=== PATIENT | female | born 1960 | race Caucasian/White ===

== ENCOUNTER 2019-03-27 01:09 | Emergency (ER) | payer MEDICAID, SELFPAY ==
[2019-03-27] VITALS (8 sets, daily range): BP systolic 142–187; BP diastolic 100–129; PULSE 75–98; RESP 14–24; O2SAT 94–98; BMI 28.1
--- NOTE | 2019-03-27 01:11 | XR_ITS ---
WS: [id number] Left hand, 3 views, 03/27/2019 Clinical Data: injury Comparison: None. Findings: There is a small calcification at the dorsal base of the left second distal phalanx which could repre sent a small fracture. No other areas of fracture are seen. The joint spaces are otherwise normal. Th e soft tissues are unremarkable. XR/XR hand LT min 3V* [id number] Impression: 1. Small calcification at the dorsal base of the distal phalanx of the second f colleen which could represent a small fracture. 2. The remainder of the left hand is unremarkable.
--- NOTE | 2019-03-27 01:17 | W.ED.EXTPRO ---
HPI - Extremity Problem General: Chief complaint: Extremity Injury, Upper Stated complaint: INJURY TO LEFT THUMB Time Seen by Provider: 03/27/19 01:17 History of Present Illness: HPI Narrative: Patient is a 58-year-old female comes to the ED with right hand pain. She states that just before arrival she got her right hand got injured when she closed the trunk of her car on her right hand by accident. She says most of her pain is in the thumb area. She has multiple superficial lacerations and abrasions. Patient states tetanus was given within the last 5 years. She has full range of motion and pain free when she moves her fingers and wrist. She is able to move her thumb but it does cause pain. Denies any chest pain, shortness of breath, head injury, abdominal pain, nausea, vomiting, dysuria, hematuria, diarrhea, constipation, blood in the stool, numbness or tingling, weakness to extremities. Patient is also feels like she is developing a migraine. She says she's had a headache for the past 2 days and is to use Tylenol and Aleve to treat it and it has not gotten any better and now it's development into her migraines. She has a history of migraines and states that this headache starting his chest like her past migraines. She has photophobia with nausea. Denies any other neurological symptoms. Review of Systems General: Reports: 10 or more systems reviewed and unremarkable except in HPI and below PFSH ED PFSH: Statuses (acute, chronic, etc) shown below reflect problem list status as previously entered and may not be historically accurate Social History Smoking and tobacco status: current every day smoker Physical Exam Const: COMMON NORMALS: oriented x3 HENMT: COMMON NORMALS: normocephalic HEAD & SCALP: normocephalic MOUTH: oral and palatal mucosa normal THROAT: posterior oropharynx normal and uvula midline Neck/C-Spine: COMMON NORMALS: supple GENERAL: Yes normal visual inspection Resp: COMMON NORMALS: normal respiratory effort, no retractions, no use of accessory muscles and clear to auscultation bilaterally AUSCULTATION: clear to auscultation bilaterally Cardio: COMMON NORMALS: regular rate, regular rhythm, S1 normal heart sound, S2 normal heart sound, no gallops, no clicks, no murmurs and peripheral pulses 2+ throughout RATE: regular rate RHYTHM: regular rhythm HEART SOUNDS: S1 normal and S2 normal PERIPHERAL PULSES: pulses 2+ throughout GI: COMMON NORMALS: normal to inspection, nondistended, normoactive bowel sounds, soft to palpation, non-tender and no masses PALPATION: Yes soft : COMMON NORMALS: Yes no CVA tenderness BLADDER/KIDNEY EXAM: Yes no CVA tenderness Back/Pelvis: COMMON NORMALS: no CVA tenderness Extremity: LEFT UPPER EXTREMITY: Yes hand & digits (2.5 cm superficial lac and multiple abrasions.-mild swelling on thumb) Left hand and digits: Yes inspection (superficial laceration 2.5cm in webbing between 1st and 2nd digit.), Yes palpation (mild tenderness over thumb), Yes ROM (normal), Yes neurovascular exam (intact) and Yes tendon exam (intact) Neuro: COMMON NORMALS: oriented x3 and moves all extremities Procedures Laceration Laceration 1: Site: hand (2.5 cm laceration on webbing between thumb and index finger. superficial) Side (If applicable): left Size (cm): 2.5 Description: linear Depth: simple, single layer Pre-repair: irrigated extensively Size (cm): other (Laceration was irrigated with NS, cleaned with CHG, then dermabond was used to close it.) Course ED course: Laceration was irrigated with NS, cleaned with CHG, then dermabond was used to close it. 2 small abrasions on thumb were irrigated with NS and cleaned with CHG. Patient also complained of developing a migraine over the last couple days. I treated her migraine with sumatriptan, Reglan, Decadron and Benadryl. Vital Signs: Vital signs: Vital Signs Pulse Rate 76 03/27/19 03:15 Respiratory Rate 18 03/27/19 03:15 Blood Pressure 142/100 03/27/19 03:15 Pulse Oximetry 98 03/27/19 03:15 MDM - Extremity (Nontraumatic) Imaging Data^: Xray Ortho: Attestation: I personally reviewed and interpreted this imaging study as follows: My impression: No acute fractures seen on left hand x-ray. Radiologist's impression: Pending radiology final report. Discharge Plan Discharge Patient Disposition: Home, Self-Care Clinical Impression: Contusion, thumb Qualifiers: Encounter type: initial encounter Damage to nail status: without damage Laterality: left Qualified Code(s): S60.012A - Contusion of left thumb without damage to nail, initial encounter Abrasion of hand, left Qualifiers: Encounter type: initial encounter Qualified Code(s): S60.512A - Abrasion of left hand, initial encounter Laceration of hand, left Qualifiers: Encounter type: initial encounter Foreign body presence: without foreign body Qualified Code(s): S61.412A - Laceration without foreign body of left hand, initial encounter Migraine headache without aura Qualifiers: Status migrainosus presence: without status migrainosus Intractability: intractable Qualified Code(s): G43.019 - Migraine without aura, intractable, without status migrainosus Condition: Stable Prescriptions: New Bactrim DS 800-160 mg tablet 1 tab PO DAILY 5 Days Qty: 5 RF: 0 No Action Unable to Assess RF: 0 Discharge Orders: Discharge Order (Routine); Ordered 03/27/19 Ordered By: Joseph Parsons Referrals: Diogenes Rees MD [Primary Care Provider] - Discharge Diet: Regular Discharge Activity: Resume usual activity and Increase activity as tolerated Activity Restrictions/Additional Instructions: Follow-up with primary care doctor in 5-7 days for reevaluation. Apply ice to left hand to help with swelling and pain. Take [id number] naproxen or ibuprofen to help with pain and inflammation. Take full course of antibiotics as prescribed. Increase activity with left hand as tolerated. You were also treated for an acute migraine in the ED. Discharge Date/Time: 03/27/19 03:16 Coding Level of Care Code ED Head Of Transport Logistics for [facility] Little
--- NOTE | 2019-03-27 02:00 | PC.NURSE ---
up to BR. reviewed ucc procedure at this time. voiced understanding ntoed. denies questions concerns or needs at this time
[2019-03-27] MEDS: ketorolac 30 mg/mL INJ IM (02:10)
--- NOTE | 2019-03-27 02:10 | PC.NURSE ---
pt reports smashing thumb in trunk of car. small v shaped lack noted to interior lateral thumb. bleeding stablized at this time. pt states she is getting a migraine and feels nauseous now
[2019-03-27] MEDS: dexamethasone 10 mg/mL INJ IM (02:55)
[2019-03-27] MEDS: diphenhydrAMINE 25 mg Capsule PO (02:56)
[2019-03-27] MEDS: metoclopramide 5 mg/mL SDV 2 mL 10 MG IM (02:56)
[2019-03-27] MEDS: SUMAtriptan 6 mg/0.5 mL SDV SUBCUT (02:58)
== END 2019-03-27 03:16 | disposition home or self-care (01) ==
PROVIDERS: Emergency Provider Physician Assistant; Family Provider Family Medicine; PCP Family Medicine
DX: S61.412A Laceration without foreign body of left hand, initial encounter (principal); S60.012A Contusion of left thumb without damage to nail, initial encounter; G43.019 Migraine without aura, intractable, without status migrainosus; F17.210 Nicotine dependence, cigarettes, uncomplicated; W23.0XXA Caught, crushed, jammed, or pinched between moving objects, initial encounter
CPT/HCPCS: 12001; 73130; 96372; 99281; J1100; J1885; J2765; J3030

== ENCOUNTER → 2019-04-02 08:35 | Outpatient (BNVA) | payer MEDICAID, SELFPAY | PROVIDERS: Family Provider Family Medicine; PCP Family Medicine; Visit Provider Specialist | DX: G43.711 Chronic migraine without aura, intractable, with status migrainosus (principal); F17.210 Nicotine dependence, cigarettes, uncomplicated | CPT/HCPCS: 64615; J0585 ==

== ENCOUNTER 2019-04-11 18:46 | Emergency (ER) | payer MEDICAID, SELFPAY ==
[2019-04-11 19:08] VITALS: BP 135/95; PULSE 104; RESP 15; TEMP 36.4; O2SAT 93; BMI 27.7
--- NOTE | 2019-04-11 19:59 | W.ED.HA ---
HPI - Headache General: Chief Complaint: Headache Stated Complaint: MIGRAINE Time Seen by Provider: 04/11/19 19:48 History of Present Illness: HPI Narrative: Patient comes in today with complaints of migraine headache. Patient reports headache since . Patient reports she sees Dr. Anand and has been getting Botox injections for her chronic migraines. Patient reports she is tried different methods at home without any relief. Patient did not stress what medicine she used at home. Patient appears well. Patient appears in moderate pain. Review of Systems General: Reports: 10 or more systems reviewed and unremarkable except in HPI and below Neuro: Reports: headache PFSH ED PFSH: Statuses (acute, chronic, etc) shown below reflect problem list status as previously entered and may not be historically accurate Social History Smoking and tobacco status: current every day smoker Physical Exam Const: COMMON NORMALS: no apparent distress and oriented x3 GENERAL APPEARANCE: cooperative HENMT: COMMON NORMALS: normocephalic, external ears normal, EAC's normal, TM's normal bilaterally and external nose normal HEAD & SCALP: normal to inspection and normocephalic FACE & SINUS: normal facial exam NOSE: external nose normal GENERAL EAR: hearing not grossly impaired EXTERNAL EAR: Yes external ears normal EXTERNAL AUDITORY CANAL: EAC's normal TYMPANIC MEMBRANE: TM's normal bilaterally MOUTH: oral and palatal mucosa normal THROAT: posterior oropharynx normal Eye: COMMON NORMALS: PERRL and EOMs intact bilaterally PUPIL: Yes PERRL Neck/C-Spine: COMMON NORMALS: full ROM and no lymphadenopathy Lymph: LYMPHATIC: no lymphedema noted Chest: COMMONS NORMALS: inspection of chest normal and palpation of chest normal Resp: COMMON NORMALS: normal respiratory effort and clear to auscultation bilaterally AUSCULTATION: clear to auscultation bilaterally Cardio: COMMON NORMALS: regular rate and regular rhythm RATE: regular rate RHYTHM: regular rhythm GI: COMMON NORMALS: normal to inspection, nondistended, normoactive bowel sounds and non-tender : COMMON NORMALS: Yes no CVA tenderness BLADDER/KIDNEY EXAM: Yes no CVA tenderness Back/Pelvis: COMMON NORMALS: no CVA tenderness and thoracic and lumbar spine normal to inspection Extremity: COMMON NORMALS: normal to inspection GENERAL: No edema Neuro: COMMON NORMALS: oriented x3, moves all extremities and no focal motor deficits Psych: COMMON NORMALS: mental status grossly normal and cooperative Skin: COMMON NORMALS: no rashes or lesions noted GENERAL SKIN EXAM: no rashes or lesions noted Course ED course: 2124, patient reports improvement in headache, but legs are restless, will medicate with Ativan 1 mg then home to sleep. patient agreeable with plan. wjw Vital Signs: Vital signs: Vital Signs Temperature 97.5 F L 04/11/19 19:08 Pulse Rate 104 H 04/11/19 19:08 Respiratory Rate 15 04/11/19 19:08 Blood Pressure 135/95 04/11/19 19:08 Pulse Oximetry 93 04/11/19 19:08 MDM - Headache MDM Narrative: Medical decision making narrative: Patient comes in today with complaints of migraine headache. Patient appears well. Patient has no signs of focal dural deficits. Patient reports that headache is similar to previous headaches. Differential diagnosis includes migraine headache, tension headache, malingering. Patient was given 50 mg of Benadryl with 10 mg of Reglan. Patient had improvement in headache legs were restless she was then medicated with 1 mg Ativan IV push. Patient was then released to home to sleep and follow-up with primary care. Patient reports understanding agreed to plan. Discharge Plan Discharge Patient Disposition: Home, Self-Care Clinical Impression: Migraine Qualifiers: Migraine type: without aura Status migrainosus presence: without status migrainosus Intractability: not intractable Qualified Code(s): G43.009 - Migraine without aura, not intractable, without status migrainosus Condition: Stable Prescriptions: No Action alprazolam [Xanax] 0.25 mg tablet 0.25 mg PO QDAY PRN (Reason: headaches) RF: 0 gabapentin 400 mg capsule 800 mg PO QID RF: 0 ropinirole 1 mg tablet 1 mg PO QDAY RF: 0 Excedrin Extra Strength 250-250-65 mg tablet See Rx Instructions PO ONCE RF: 0 naproxen sodium [Aleve] 220 mg tablet 220 mg PO ONCE PRN (Reason: Headache) RF: 0 acetaminophen [Tylenol Extra Strength] 500 mg tablet 500 mg PO Q4H PRN (Reason: headache) RF: 0 dextroamphetamine [Zenzedi] 10 mg tablet 10 mg PO BID RF: 0 diltiazem HCl [Cardizem] 60 mg tablet 120 mg PO DAILY RF: 0 levothyroxine 75 mcg capsule 150 mcg PO QDAY RF: 0 metoprolol succinate 25 mg tablet extended release 24 hr 37.5 mg PO QDAY RF: 0 promethazine 25 mg tablet 25 mg PO Q6H PRN (Reason: migraines) Qty: 120 RF: 4 Discharge Orders: Discharge Order (Routine); Ordered 04/11/19 Ordered By: Ahmet Parker Referrals: Diogenes Rees MD [Primary Care Provider] - Discharge Diet: Usual diet Discharge Activity: Increase activity as tolerated Patient Instructions: Migraine Headache (ED) Activity Restrictions/Additional Instructions: Home and rest Drink plenty of water Follow-up with primary care or neurology as scheduled Coding Level of Care Code ED Exhaust Machine Operator for [facility] F[facility] Exam Problem Focused
[2019-04-11] MEDS: diphenhydrAMINE 50 mg/mL SDV 1mL IVP (20:41)
[2019-04-11] MEDS: metoclopramide 5 mg/mL SDV 2 mL 10 MG IVP (20:42)
[2019-04-11] MEDS: sodium chloride 0.9% 500 ML 999 ML IV (20:42)
[2019-04-11 21:44] VITALS: BP 142/98; PULSE 83; RESP 20; O2SAT 96
== END 2019-04-11 21:45 | disposition home or self-care (01) ==
PROVIDERS: Emergency Provider Nurse Practitioner Family; Family Provider Family Medicine; PCP Family Medicine
DX: G43.009 Migraine without aura, not intractable, without status migrainosus (principal); F17.210 Nicotine dependence, cigarettes, uncomplicated
CPT/HCPCS: 96360; 96374; 96375; 99282; 99283; J1200; J2765; J7040

== ENCOUNTER 2019-04-14 17:37 | Emergency (ER) | payer MEDICAID, SELFPAY ==
[2019-04-14 18:04] VITALS: BP 155/91; PULSE 99; RESP 16; TEMP 36.7; O2SAT 98; BMI 27.7
--- NOTE | 2019-04-14 21:30 | W.ED.HA ---
HPI - Headache General: Chief Complaint: Headache Stated Complaint: MIGRAINE Time Seen by Provider: 04/14/19 19:37 History of Present Illness: HPI Narrative: Patient is a 58-year-old female who comes the ED with a migraine. She has a past medical history of migraines and is currently seeing Dr. Anand and getting Botox injections to treat migraines. She says this migraine started last and she was recently seen here in the ED (04/11) and treated for migraine .She states the migraine did improve after treatment here in the ED couple days ago but now it has gotten worse again and she rates it 8-9 out of 10. This current migraine is like all her other previous migraines and doesn't seem any worse or different than past migraines. She endorses photophobia and nausea. She says the headache pain is retro-orbital behind both eyes. She has taken some Tylenol at home and it has not provided any relief. Denies any numbness or tingling, vision changes, no weakness to extremities, fever, vomiting, Chest pain, shortness of breath abdominal pain, bladder or bowel symptoms. Pt states she has a appointment with Dr. Anand this June. Review of Systems General: Reports: 10 or more systems reviewed and unremarkable except in HPI and below PFSH ED PFSH: Statuses (acute, chronic, etc) shown below reflect problem list status as previously entered and may not be historically accurate Social History Smoking and tobacco status: current every day smoker Physical Exam Narrative: EXAM NARRATIVE: Patient is a 58-year-old female sitting on her exam bed in the dark when I entered the room. She is responsive and answered all my questions appropriately. Const: COMMON NORMALS: oriented x3 HENMT: COMMON NORMALS: normocephalic HEAD & SCALP: normocephalic MOUTH: oral and palatal mucosa normal THROAT: posterior oropharynx normal and uvula midline Neck/C-Spine: COMMON NORMALS: supple GENERAL: Yes normal visual inspection Resp: COMMON NORMALS: normal respiratory effort, no retractions, no use of accessory muscles and clear to auscultation bilaterally AUSCULTATION: clear to auscultation bilaterally Cardio: COMMON NORMALS: regular rate, regular rhythm, S1 normal heart sound, S2 normal heart sound, no gallops, no clicks, no murmurs and peripheral pulses 2+ throughout RATE: regular rate RHYTHM: regular rhythm HEART SOUNDS: S1 normal and S2 normal PERIPHERAL PULSES: pulses 2+ throughout GI: COMMON NORMALS: normal to inspection, nondistended, normoactive bowel sounds, soft to palpation, non-tender and no masses PALPATION: Yes soft : COMMON NORMALS: Yes no CVA tenderness BLADDER/KIDNEY EXAM: Yes no CVA tenderness Back/Pelvis: COMMON NORMALS: no CVA tenderness Extremity: COMMON NORMALS: normal to inspection Neuro: COMMON NORMALS: oriented x3, CN's II-XII intact bilaterally, moves all extremities, no focal motor deficits and no sensory deficits noted SENSORY EXAM: Yes extremities (intact) MOTOR EXAM: strength 5/5 throughout Course Reevaluation(s): Reevaluation #1: Patient's headache is only improved to about 7 or 8 out of 10. I discussed with her getting sumatriptan to help reduce migraines. She agreed with plan and we will reassess after sumatriptan dose. Time: 23:18 Reevaluation #2: Talk with patient after given sumatriptan dose. She stated her migraine is getting a lot better and thinks she is ready to go home. Time: 00:00 Vital Signs: Vital signs: Vital Signs Temperature 98.0 F 04/14/19 18:04 Pulse Rate 88 04/15/19 00:16 Respiratory Rate 18 04/15/19 00:16 Blood Pressure 163/98 04/15/19 00:16 Pulse Oximetry 94 04/15/19 00:16 Discharge Plan Discharge Patient Disposition: Home, Self-Care Clinical Impression: Migraine Qualifiers: Migraine type: ophthalmoplegic Intractability: intractable Qualified Code(s): G43.B1 - Ophthalmoplegic migraine, intractable Condition: Stable Prescriptions: No Action alprazolam [Xanax] 0.25 mg tablet 0.25 mg PO QDAY PRN (Reason: headaches) RF: 0 gabapentin 400 mg capsule 800 mg PO QID RF: 0 ropinirole 1 mg tablet 1 mg PO QDAY RF: 0 Excedrin Extra Strength 250-250-65 mg tablet See Rx Instructions PO ONCE RF: 0 naproxen sodium [Aleve] 220 mg tablet 220 mg PO ONCE PRN (Reason: Headache) RF: 0 acetaminophen [Tylenol Extra Strength] 500 mg tablet 500 mg PO Q4H PRN (Reason: headache) RF: 0 dextroamphetamine [Zenzedi] 10 mg tablet 10 mg PO BID RF: 0 diltiazem HCl [Cardizem] 60 mg tablet 120 mg PO DAILY RF: 0 levothyroxine 75 mcg capsule 150 mcg PO QDAY RF: 0 metoprolol succinate 25 mg tablet extended release 24 hr 37.5 mg PO QDAY RF: 0 promethazine 25 mg tablet 25 mg PO Q6H PRN (Reason: migraines) Qty: 120 RF: 4 Discharge Orders: Discharge Order (Routine); Ordered 04/14/19 Ordered By: Joseph Parsons Referrals: Diogenes Rees MD [Primary Care Provider] - Discharge Diet: Regular Discharge Activity: Resume usual activity Patient Instructions: Migraine Headache (ED) Activity Restrictions/Additional Instructions: Follow-up with PCP in 7 days for reevaluation. Go home and rest and take ibuprofen or Tylenol for headache if returns. Drink plenty of fluids and stay hydrated. Return to the ED with migraine continues anuria noticing any neurological symptoms such as numbness or tingling or weakness to extremities. Discharge Date/Time: 04/15/19 00:18 Coding Level of Care Code ED Delivery Driver/Customer Service for [facility] Little
[2019-04-14 22:08] VITALS: BP 149/82; PULSE 72; RESP 18; O2SAT 94
[2019-04-14] MEDS: sodium chloride 0.9% 1,000 ML 999 ML IV (22:27)
[2019-04-14] MEDS: metoclopramide 5 mg/mL SDV 2 mL 10 MG IVP (22:27)
[2019-04-14] MEDS: dexamethasone 10 mg/mL INJ IVP (22:27)
[2019-04-14] MEDS: ketorolac 30 mg/mL INJ IVP (22:27)
[2019-04-14] MEDS: diphenhydrAMINE 50 mg/mL SDV 1mL 25 MG IVP (22:28)
[2019-04-14] MEDS: SUMAtriptan 6 mg/0.5 mL SDV SUBCUT (23:29)
[2019-04-15] VITALS: BP 171/97; PULSE 84; RESP 18; O2SAT 94
[2019-04-15 00:16] VITALS: BP 163/98; PULSE 88; RESP 18; O2SAT 94
== END 2019-04-15 00:18 | disposition home or self-care (01) ==
PROVIDERS: Emergency Provider Physician Assistant; Family Provider Family Medicine; PCP Family Medicine
DX: G43.909 Migraine, unspecified, not intractable, without status migrainosus (principal); F17.200 Nicotine dependence, unspecified, uncomplicated
CPT/HCPCS: 96360; 96361; 96372; 96374; 96375; 99282; 99283; J1100; J1200; J1885; J2765; J3030; J7030

== ENCOUNTER 2019-04-23 14:04 | Emergency (ER) | payer MEDICAID, SELFPAY ==
[2019-04-23 14:10] VITALS: BP 156/119; PULSE 107; RESP 18; TEMP 36.3; O2SAT 98; BMI 27.7
[2019-04-23 14:36] VITALS: BP 136/84; PULSE 94; RESP 18; TEMP 36.4; O2SAT 97
--- NOTE | 2019-04-23 15:00 | W.ED.HA ---
HPI - Headache General: Chief Complaint: Headache Stated Complaint: H/A Time Seen by Provider: 04/23/19 15:00 Source: patient Mode of arrival: ambulatory Limitations: no limitations History of Present Illness: HPI Narrative: Patient is a 58-year-old female who presents to ED today with complaints of a migraine headache. This is patient's third visit this month for migraine headache. Reports after last visit WANG subsided for 48 hours but has now returned. Patient states she has a chronic history of headaches in which she is seeing Dr. Anand for Botox injections. Patient states she does not take any preventative or abortive migraine therapies at home. Patient states her migraine today feels identical to previous migraines. MD elicited complaint: headache Onset (ago): day(s) Onset description: gradually Exacerbating factors: light and noise Relieving factors: nothing Associated symptoms: Reports no associated symptoms; Deny chest pain, confusion, fever(s), lightheadedness, malaise, nausea, rash, syncope or vomiting Review of Systems Const: Denies: fever, chills, body aches, change in appetite, change in weight, fatigue or malaise Eyes: Denies: change in vision or blurry vision ENMT: Denies: throat pain, enlarged tonsils or painful swallowing Card: Denies: chest pain, palpitations, irregular heart rhythm, lightheadedness, syncope or shortness of breath on exertion Resp: Denies: shortness of breath, productive cough or pain on inspiration GI: Denies: abdominal pain, nausea, vomiting, heartburn/indigestion or diarrhea : Denies: painful urination Musc: Denies: neck pain, back pain or joint pain Skin/Breast: Denies: rash Neuro: Reports: headache; Denies: numbness in extremities, weakness in extremities, changes in sensation, frequent falls, dizziness, confusion or slurred speech PFS ED PFSH: Social History Smoking and tobacco status: current every day smoker Physical Exam Const: COMMON NORMALS: no apparent distress, oriented x3, no limitations, alert and well nourished ORIENTATION/CONSCIOUSNESS: Yes oriented to person, Yes oriented to place and Yes oriented to time HENMT: COMMON NORMALS: normocephalic, head/scalp atraumatic, hearing grossly normal bilaterally, external ears normal, EAC's normal, TM's normal bilaterally, external nose normal, nasal mucous membranes and turbinates normal, moist oral mucous membranes and oropharynx normal HEAD & SCALP: normocephalic and atraumatic NOSE: external nose normal and nasal mucous membranes and turbinates normal EXTERNAL EAR: Yes external ears normal EXTERNAL AUDITORY CANAL: EAC's normal TYMPANIC MEMBRANE: TM's normal bilaterally Eye: COMMON NORMALS: PERRL and EOMs intact bilaterally PUPIL: Yes PERRL Neck/C-Spine: COMMON NORMALS: full ROM, no lymphadenopathy, supple and no meningeal signs Resp: COMMON NORMALS: normal respiratory effort and clear to auscultation bilaterally AUSCULTATION: clear to auscultation bilaterally Cardio: COMMON NORMALS: regular rate and regular rhythm RATE: regular rate RHYTHM: regular rhythm Neuro: YASIR COMA SCALE: document GCS findings Yasir coma scale eye opening: Spontaneous Yasir coma scale verbal response: Orientated Yasir coma scale motor response: Obey commands [place] coma scale total score: 15 COMMON NORMALS: oriented x3, CN's II-XII intact bilaterally, moves all extremities, no focal motor deficits, no sensory deficits noted and gait normal SENSORIUM/ORIENTATION: Yes alert, Yes oriented to person, Yes oriented to place and Yes oriented to time MENINGEAL SIGNS: Yes no meningeal signs SPEECH: speech normal GAIT: Yes normal gait Skin: COMMON NORMALS: no rashes or lesions noted GENERAL SKIN EXAM: no rashes or lesions noted Course Vital Signs: Vital signs: Vital Signs Temperature 97.5 F L 04/23/19 14:36 Pulse Rate 94 04/23/19 14:36 Respiratory Rate 18 04/23/19 14:36 Blood Pressure 136/84 04/23/19 14:36 Pulse Oximetry 97 04/23/19 14:36 MDM - Headache MDM Narrative: Medical decision making narrative: WANG improved after IV fluids, Reglan and DHE. Pt states she is comfortable going home at this point. Strongly recommend she followup with PCP or her neurologist for better control of her migraines. Discharge Plan Discharge Patient Disposition: Home, Self-Care Clinical Impression: Migraine Qualifiers: Migraine type: without aura Status migrainosus presence: with status migrainosus Intractability: not intractable Qualified Code(s): G43.001 - Migraine without aura, not intractable, with status migrainosus Condition: Stable Prescriptions: No Action alprazolam [Xanax] 0.25 mg tablet 0.25 mg PO QDAY PRN (Reason: headaches) RF: 0 gabapentin 400 mg capsule 800 mg PO QID RF: 0 ropinirole 1 mg tablet 1 mg PO QDAY RF: 0 Excedrin Extra Strength 250-250-65 mg tablet See Rx Instructions PO ONCE RF: 0 naproxen sodium [Aleve] 220 mg tablet 220 mg PO ONCE PRN (Reason: Headache) RF: 0 acetaminophen [Tylenol Extra Strength] 500 mg tablet 500 mg PO Q4H PRN (Reason: headache) RF: 0 dextroamphetamine [Zenzedi] 10 mg tablet 10 mg PO BID RF: 0 diltiazem HCl [Cardizem] 60 mg tablet 120 mg PO DAILY RF: 0 levothyroxine 75 mcg capsule 150 mcg PO QDAY RF: 0 metoprolol succinate 25 mg tablet extended release 24 hr 37.5 mg PO QDAY RF: 0 promethazine 25 mg tablet 25 mg PO Q6H PRN (Reason: migraines) Qty: 120 RF: 4 Discharge Orders: Discharge Order (Routine); Ordered 04/23/19 Ordered By: Heather Mauro Referrals: Diogenes Rees MD [Primary Care Provider] - Discharge Diet: Usual diet Discharge Activity: Increase activity as tolerated Patient Instructions: Headache - Migraine (Adult) Coding Level of Care Code ED Assistant Nurse Manager for [facility] Exam Problem Focused
[2019-04-23] MEDS: sodium chloride 0.9% 1,000 ML 999 ML IV (15:30)
[2019-04-23] MEDS: metoclopramide 5 mg/mL SDV 2 mL 10 MG IVP (15:35)
[2019-04-23] MEDS: dihydroergotamine 1 mg/mL Inj IVP (16:05)
[2019-04-23 17:07] VITALS: BP 148/86; PULSE 95; RESP 16; TEMP 36.4; O2SAT 97
== END 2019-04-23 17:08 | disposition home or self-care (01) ==
PROVIDERS: Emergency Provider Physician Assistant; Family Provider Family Medicine; PCP Family Medicine
DX: G43.909 Migraine, unspecified, not intractable, without status migrainosus (principal); F17.200 Nicotine dependence, unspecified, uncomplicated
CPT/HCPCS: 96361; 96374; 96375; 99282; 99283; J1110; J2765; J7030

== ENCOUNTER 2019-05-26 17:23 | Emergency (ER) | payer MEDICAID, SELFPAY ==
[2019-05-26 17:32] VITALS: BP 161/94; RESP 20; TEMP 37; O2SAT 94; BMI 28.1
[2019-05-26 18:47] VITALS: BP 166/115; PULSE 98; RESP 14; O2SAT 98
[2019-05-26] MEDS: diphenhydrAMINE 50 mg/mL SDV 1mL 25 MG IVP (19:40)
[2019-05-26] MEDS: dexamethasone 4 mg/mL INJ 6 MG IVP (19:42)
[2019-05-26] MEDS: ketorolac 30 mg/mL INJ 15 MG IVP (19:45)
[2019-05-26] MEDS: sodium chloride 0.9% 1,000 ML 999 ML IV (19:47)
[2019-05-26] MEDS: SUMAtriptan 6 mg/0.5 mL SDV SUBCUT (19:48)
--- NOTE | 2019-05-26 19:54 | ED_ITS ---
HPI - Headache General: Chief Complaint: Headache Stated Complaint: H/A Time Seen by Provider: 05/26/19 18:54 Source: patient Mode of arrival: ambulatory Limitations: no limitations History of Present Illness: HPI Narrative: Patient is a 58-year-old female who presents to ED today with complaints of a migraine headache over the past 2 to 3 days. Patient has a chronic history of migraine headaches in which she follows up with Dr. Anand. Patient states her headache today feels identical to previous migraines. MD elicited complaint: headache and migraine Onset (ago): day(s) Onset description: gradually Pain scale (0-10): 8 Relieving factors: nothing Context: occurred at rest Associated symptoms: Reports no associated symptoms; Deny chest pain, fever(s), nausea, rash or vomiting Review of Systems Const: Denies: fever, chills, body aches, change in appetite, change in weight or fatigue Eyes: Denies: change in vision, blurry vision or photophobia ENMT: Denies: throat pain, enlarged tonsils or painful swallowing Card: Denies: chest pain Resp: Denies: shortness of breath or chest congestion GI: Denies: abdominal pain, nausea, vomiting or diarrhea Musc: Denies: neck pain or back pain Skin/Breast: Denies: rash Neuro: Reports: headache; Denies: numbness in extremities, weakness in extremities or changes in sensation PFSH ED PFSH: Social History Smoking and tobacco status: current every day smoker Physical Exam Const: COMMON NORMALS: no apparent distress, average body habitus, oriented x3, no limitations, healthy appearing, alert and well nourished HENMT: COMMON NORMALS: normocephalic and head/scalp atraumatic HEAD & SCALP: normocephalic and atraumatic Eye: COMMON NORMALS: PERRL, EOMs intact bilaterally, conjunctivae normal and no scleral icterus CONJUNCTIVA: Yes conjunctivae normal PUPIL: Yes PERRL Neuro: YASIR COMA SCALE: document GCS findings Yasir coma scale eye opening: Spontaneous Yasir coma scale verbal response: Orientated [place] coma scale motor response: Obey commands Yasir coma scale total score: 15 COMMON NORMALS: oriented x3, moves all extremities, no focal motor deficits, no sensory deficits noted and gait normal SENSORIUM/ORIENTATION: Yes alert Course Vital Signs: Vital signs: Vital Signs Temperature 98.6 F 05/26/19 17:32 Pulse Rate 98 05/26/19 18:47 Respiratory Rate 14 05/26/19 18:47 Blood Pressure 166/115 05/26/19 18:47 Pulse Oximetry 98 05/26/19 18:47 Discharge Plan Discharge Patient Disposition: Home, Self-Care Clinical Impression: Migraine Qualifiers: Migraine type: without aura Status migrainosus presence: without status migrainosus Intractability: not intractable Qualified Code(s): G43.009 - Migraine without aura, not intractable, without status migrainosus Condition: Stable Prescriptions: No Action gabapentin 400 mg capsule 800 mg PO QID RF: 0 ropinirole 1 mg tablet 1 mg PO DAILY RF: 0 Excedrin Extra Strength 250-250-65 mg tablet 1 - 2 tab PO DAILY PRN (Reason: Headache) RF: 0 naproxen sodium [Aleve] 220 mg tablet 220 mg PO DAILY PRN (Reason: Headache) RF: 0 acetaminophen [Tylenol Extra Strength] 500 mg tablet 500 mg PO Q4H PRN (Reason: headache) RF: 0 dextroamphetamine [Zenzedi] 10 mg tablet 10 mg PO BID RF: 0 diltiazem HCl [Cardizem] 60 mg tablet 120 mg PO DAILY RF: 0 levothyroxine 75 mcg capsule 150 mcg PO DAILY RF: 0 metoprolol succinate 25 mg tablet extended release 24 hr 37.5 mg PO DAILY RF: 0 promethazine 25 mg tablet 25 mg PO Q6H PRN (Reason: migraines) Qty: 120 RF: 4 alprazolam [Xanax] 0.25 mg tablet 0.25 mg PO QDAY PRN (Reason: headaches) Qty: 30 RF: 0 Discharge Orders: Discharge Order (Routine); Ordered 05/26/19 Ordered By: Heather Mauro Referrals: Diogenes Rees MD [Primary Care Provider] - Patient Instructions: Migraine Headache (ED) Coding Level of Care Code ED Heat Treat Technician for Philipg Anabel
[2019-05-26] MEDS: metoclopramide 5 mg/mL SDV 2 mL 10 MG IVP (20:57)
[2019-05-26] MEDS: dihydroergotamine 1 mg/mL Inj IVP (20:59)
[2019-05-26 21:28] VITALS: BP 175/98; PULSE 73; RESP 16; O2SAT 97
== END 2019-05-26 21:28 | disposition home or self-care (01) ==
PROVIDERS: Emergency Provider Physician Assistant; Family Provider Family Medicine; PCP Family Medicine
DX: G43.009 Migraine without aura, not intractable, without status migrainosus (principal); F17.210 Nicotine dependence, cigarettes, uncomplicated
CPT/HCPCS: 12345; 96361; 96372; 96374; 96375; 99282; 99283; J1100; J1110; J1200; J1885; J2765; J3030; J7030

== ENCOUNTER 2019-06-25 20:23 | Emergency (ER) | payer MEDICAID, SELFPAY ==
[2019-06-25 20:45] VITALS: BP 165/87; PULSE 87; RESP 16; TEMP 36.5; O2SAT 96; BMI 28.1
--- NOTE | 2019-06-25 20:52 | W.ED.HA ---
HPI - Headache General: Chief Complaint: Headache Stated Complaint: MIGRAINE Time Seen by Provider: 06/25/19 20:24 Source: patient Mode of arrival: ambulatory Limitations: no limitations History of Present Illness: HPI Narrative: 58-year-old female has a long history of migraines states she has had a migraine over the last 5 days. Patient has had multiple migraines in the past and this is similar. Her headache began gradually. She denies any vomiting or diarrhea. She denies any fevers. She states is worse with bright lights and improved in dark rooms. MD elicited complaint: headache and migraine Pertinent past history: migraines Onset (ago): day(s) Onset description: gradually Location: diffuse Severity: moderate Quality & Timing: aching Exacerbating factors: light Relieving factors: dark room Associated symptoms: Deny chest pain, fever(s), nausea, rash or vomiting Review of Systems Const: Denies: fever, chills, body aches or change in appetite Eyes: Denies: blurry vision or eye discomfort ENMT: Denies: throat pain or dental pain Card: Denies: chest pain Resp: Denies: shortness of breath GI: Denies: abdominal pain, nausea, vomiting or diarrhea : Denies: painful urination Musc: Denies: neck pain or back pain Skin/Breast: Denies: rash Neuro: Reports: headache Psych: Denies: depression Adi/Lymph: Denies: easy bruising All/Imm: Denies: hives PFSH ED PFSH: Social History Smoking and tobacco status: current every day smoker Physical Exam Const: COMMON NORMALS: no apparent distress, oriented x3 and healthy appearing HENMT: COMMON NORMALS: normocephalic and head/scalp atraumatic HEAD & SCALP: normocephalic and atraumatic Eye: COMMON NORMALS: PERRL and EOMs intact bilaterally PUPIL: Yes PERRL Neck/C-Spine: COMMON NORMALS: full ROM and supple Chest: COMMONS NORMALS: inspection of chest normal and palpation of chest normal Resp: COMMON NORMALS: normal respiratory effort, no retractions, no use of accessory muscles and clear to auscultation bilaterally AUSCULTATION: clear to auscultation bilaterally Cardio: COMMON NORMALS: regular rate, regular rhythm and no murmurs RATE: regular rate RHYTHM: regular rhythm GI: COMMON NORMALS: normal to inspection, nondistended, normoactive bowel sounds, soft to palpation, non-tender and no masses PALPATION: Yes soft Extremity: COMMON NORMALS: normal to inspection and full ROM Neuro: COMMON NORMALS: oriented x3, moves all extremities and no focal motor deficits Psych: COMMON NORMALS: mental status grossly normal, thought process normal and cooperative THOUGHT PROCESS: normal thought process Skin: COMMON NORMALS: no rashes or lesions noted and no wounds GENERAL SKIN EXAM: no rashes or lesions noted Course Vital Signs: Vital signs: Vital Signs Temperature 97.7 F 06/25/19 20:45 Pulse Rate 84 06/25/19 21:18 Respiratory Rate 20 H 06/25/19 21:48 Blood Pressure 149/86 06/25/19 21:18 Pulse Oximetry 100 06/25/19 21:48 MDM - Headache MDM Narrative: Medical decision making narrative: Patient presents with migraine headache that is similar to her previous migraines. She has no signs of subarachnoid hemorrhage or meningitis. Patient's headache is resolved and she is stable for discharge. She is to follow-up with primary care doctor in 3 to 5 days and return if worsening. Discharge Plan Discharge Patient Disposition: Home, Self-Care Clinical Impression: Migraine Qualifiers: Migraine type: unspecified Status migrainosus presence: without status migrainosus Intractability: not intractable Qualified Code(s): G43.909 - Migraine, unspecified, not intractable, without status migrainosus Condition: Stable Prescriptions: No Action gabapentin 400 mg capsule 800 mg PO QID RF: 0 ropinirole 1 mg tablet 1 mg PO DAILY RF: 0 Excedrin Extra Strength 250-250-65 mg tablet 1 - 2 tab PO DAILY PRN (Reason: Headache) RF: 0 naproxen sodium [Aleve] 220 mg tablet 220 mg PO DAILY PRN (Reason: Headache) RF: 0 acetaminophen [Tylenol Extra Strength] 500 mg tablet 500 mg PO Q4H PRN (Reason: headache) RF: 0 dextroamphetamine [Zenzedi] 10 mg tablet 10 mg PO BID RF: 0 diltiazem HCl [Cardizem] 60 mg tablet 120 mg PO DAILY RF: 0 levothyroxine 75 mcg capsule 150 mcg PO DAILY RF: 0 metoprolol succinate 25 mg tablet extended release 24 hr 37.5 mg PO DAILY RF: 0 promethazine 25 mg tablet 25 mg PO Q6H PRN (Reason: migraines) Qty: 120 RF: 4 alprazolam [Xanax] 0.25 mg tablet 0.25 mg PO QDAY PRN (Reason: headaches) Qty: 30 RF: 0 Discharge Orders: Discharge Order (Routine); Ordered 06/25/19 Ordered By: Lanette Carpenter Referrals: Diogenes Rees MD [Primary Care Provider] - Discharge Diet: Advance as tolerated Discharge Activity: Resume usual activity Patient Instructions: Migraine Headache (ED) Coding Level of Care Code ED Service Liaison Representative for Chg Fwd Exam Comprehensive
[2019-06-25 21:18] VITALS: BP 149/86; PULSE 84; RESP 18; O2SAT 96
[2019-06-25] MEDS: diphenhydrAMINE 50 mg/mL SDV 1mL IVP (21:19)
[2019-06-25] MEDS: metoclopramide 5 mg/mL SDV 2 mL 10 MG IVP (21:20)
[2019-06-25] MEDS: ketorolac 30 mg/mL INJ IVP (21:21)
[2019-06-25 21:48] VITALS: RESP 20; O2SAT 100
[2019-06-25] MEDS: HYDROmorphone 1 mg/mL INJ 1 mL IVP (21:48)
[2019-06-25 22:32] VITALS: BP 121/64; PULSE 81; RESP 16; O2SAT 98
== END 2019-06-25 22:32 | disposition home or self-care (01) ==
PROVIDERS: Emergency Provider Emergency Medicine; Family Provider Family Medicine; PCP Family Medicine
DX: G43.909 Migraine, unspecified, not intractable, without status migrainosus (principal); F17.210 Nicotine dependence, cigarettes, uncomplicated
CPT/HCPCS: 12345; 96374; 96375; 99282; 99283; J1170; J1200; J1885; J2765

== ENCOUNTER → 2019-07-09 09:04 | Outpatient (BNVA) | payer MEDICAID, SELFPAY | PROVIDERS: Family Provider Family Medicine; PCP Family Medicine; Visit Provider Specialist | DX: G43.711 Chronic migraine without aura, intractable, with status migrainosus (principal); F17.210 Nicotine dependence, cigarettes, uncomplicated | CPT/HCPCS: 64615; J0585 ==

== ENCOUNTER 2019-08-25 22:01 | Emergency (ER) | payer MEDICAID, SELFPAY ==
--- NOTE | 2019-08-25 22:03 | XR_ITS ---
WS: [id number] XR knee LT 3V* [id number] REASON FOR EXAM: injury FINDINGS: The meniscal spaces are normal. The femur, patella, tibia, fibula show no definite fractures. No unusual swelling overriding the kneecap. The patellofemoral articulations are normal. The patella tibial space is normal. XR/XR knee LT 3V* [id number] IMPRESSION: Negative left knee.
[2019-08-25 22:09] VITALS: BP 146/96; PULSE 74; RESP 16; TEMP 36.6; O2SAT 96; BMI 27.3
--- NOTE | 2019-08-25 22:10 | ED_ITS ---
HPI - Extremity Injury (Lower) General: Chief Complaint: Extremity Injury, Lower Stated Complaint: l knee pain/injury Time Seen by Provider: 08/25/19 22:08 History of Present Illness: HPI Narrative: Kamala is a nice 59-year-old female who states that he was walking at home when she slipped and twisted her left knee. She states she felt a pop on the outside of her knee. Since that time she has pain when she tries to bear weight. She denies any distal numbness, tingling or weakness. She denies any other injuries. She states anytime she tries to walk or bear weight it makes the pain worse and taking the weight off of her knee makes it better. Review of Systems General: Reports: Other Const: Denies: fever(s) ENMT: Denies: throat pain Card: Denies: chest pain Resp: Denies: dyspnea GI: Denies: abdominal pain : Denies: flank pain Musc: Reports: joint pain; Denies: neck pain or back pain Skin/Breast: Denies: rash or pruritus Neuro: Denies: headache(s) PFSH ED PFSH: Medical History Anxiety and depression Chronic migraine without aura, intractable, with status migrainosus Narcolepsy and cataplexy PRES (posterior reversible encephalopathy syndrome) Surgical History H/O tubal ligation Social History Smoking and tobacco status: current every day smoker Physical Exam Const: COMMON NORMALS: no acute distress, average body habitus, patient oriented x3, no limitations, healthy appearing and alert ORIENTATION/CONSCIOUSNESS: Yes oriented to person, Yes oriented to place and Yes oriented to time HENMT: COMMON NORMALS: normocephalic, atraumatic, hearing grossly normal bilaterally, external ears normal and EAC's normal HEAD & SCALP: normocephalic and atraumatic EXTERNAL EAR: Yes external ears normal EXTERNAL AUDITORY CANAL: EAC's normal Eye: COMMON NORMALS: Equal, round and reactive pupils present, EOMs intact bilaterally and no scleral icterus PUPIL: Yes Equal, round and reactive pupils present Neck/C-Spine: COMMON NORMALS: full ROM, no lymphadenopathy and no meningeal signs Resp: COMMON NORMALS: normal respiratory effort, No retractions, No use of accessory muscles and clear to auscultation bilaterally AUSCULTATION: clear to auscultation bilaterally Cardio: COMMON NORMALS: regular rate, regular rhythm, S1 normal heart sound present, S2 normal heart sound present, No gallops present (Cardio), No clicks present (Cardio) and No murmurs present (Cardio) RATE: regular rate RHYTHM: regular rhythm HEART SOUNDS: S1 normal heart sound present and S2 normal heart sound present GI: COMMON NORMALS: Normal to inspection, nondistended, normoactive bowel sounds present, Soft to palpation, non-tender, No hepatosplenomegaly present and no masses PALPATION: Yes Soft to palpation and Yes No hepatosplenomegaly present Extremity: NARRATIVE EXTREMITY EXAM: Left knee without swelling or ecchymosis. Tenderness along the lateral joint line. No sign of dislocation. Neuro: COMMON NORMALS: patient oriented x3, CN's II-XII intact bilaterally, moves all extremities, no focal motor deficits and no sensory deficits noted SENSORIUM/ORIENTATION: Yes alert, Yes oriented to person, Yes oriented to place and Yes oriented to time MENINGEAL SIGNS: Yes no meningeal signs Course Vital Signs: Vital signs: Vital Signs Temperature 97.9 F 08/25/19 22:09 Pulse Rate 75 08/25/19 22:20 Respiratory Rate 16 08/25/19 22:09 Blood Pressure 146/96 08/25/19 22:09 Pulse Oximetry 96 08/25/19 22:09 MDM - Extremity Injury (Lower) MDM Narrative: Medical decision making narrative: The patient's description of the fall and how she injured her knee continues to change. She is adamant she had no head, neck or other extremity injuries. I see no evidence of pain below the knee and she complains of a dull pain in her leg but I see no evidence of fracture in the pelvis, hip or femur. I confirm my suspicion of a tibial plateau fracture with a CT of the knee. The impression is there is impaction fracture but the images show what is suggested as an ACL tear. I think this is more likely as 1 of the time since she described her mechanism it was that of a twisting injury. Nonetheless I will keep her on crutches, have her use a knee immobilizer and not bear any weight until seen by Dr. Rush. The patient shows no sign of significant knee dislocation as there is no swelling, she has a strong popliteal pulse as well as a strong dorsalis pedis and posterior tibial pulse. The patient does not describe any type of mechanism injury to suggest k nee dislocation and there is no sign of significant injury or vascular impairment other than the small tibial plateau fracture and possible internal derangement seen. Imaging Data^: Pelvis: My impression: No acute fractures dislocations Left Hip: My impression: No acute fractures or dislocations Left Femur: My impression: No acute fractures or dislocations Left Knee: My impression: Possible tibial plateau fracture CT Left Knee: Radiologist's impression: [address] [place] [address] CT Scan Report Signed Patient: Kamala Srivastava Unit #: [id number] : 1960 Age/Sex: 59 / F ADM Date: 08/25/19 Loc: ER Room/Bed: Attending Dr: Ordering Provider/Ordering MD: Florencia Torres DO Date of Service: 08/25/19 Procedure(s): CT knee LT wo con* [id number] Accession Number(s): [id number] Report Number: [id number] PROCEDURE INFORMATION: Exam: CT Left Lower Extremity Without Contrast, Knee Exam date and time: 08/25/2019 10:51 PM Age: 59 years old Clinical indication: Injury or trauma; Initial encounter; Blunt trauma; Left; Injury details: CO lt knee pain, sp fall; Additional info: Pain/injury TECHNIQUE: Imaging protocol: CT of the Left lower extremity without contrast was performed. Exam focused on the knee. Radiation optimization: All CT scans at this facility use at least one of these dose optimization techniques: automated exposure control; mA and/or kV adjustment per patient size (includes targeted exams where dose is matched to clinical indication); or iterative reconstruction. COMPARISON: No relevant prior studies available. RADIATION DOSE METRICS: Total DLP (mGy-cm): 198.83 FINDINGS: Bones/joints: There is a knee joint effusion/lipohemarthrosis. There is patellar enthesopathy. There is an impaction fracture of the posterior lateral corner of the tibia. There is a nondisplaced fracture line extending to the articular surface of the tibia. There is depression of the posterior tibial articular surface measuring 2 mm. No additional acute bony fracture. No intra-articular body. Soft tissues: No soft tissue fluid collection except for small Alcantara's cyst. Although CT scan is limited for ligament evaluation, on the sagittal images, the ACL appears somewhat ill-defined/wavy and the distal fibers are very attenuated concerning for an ACL tear. CT/CT knee LT wo con* [id number] IMPRESSION: 1. There is an impaction fracture of the posterior lateral corner of the tibia. There is a lipohemarthrosis. 2. The location of this fracture is a classic location of impaction fracture acquired during a ACL tear. Please correlate clinically if there is concern for internal derangement. An MRI may be helpful for further evaluation. Radiation Dose CTDIVOL = (mGy): DLP = 198.83 (mGy-cm) Dictated By: Lidia Macias Signed By: Lidia Macias Signed Date/Time: 08/25/192339 DD/ 39 Discharge Plan Discharge Patient Disposition: Home, Self-Care Clinical Impression: Tibial plateau fracture Qualifiers: Encounter type: initial encounter Fracture type: closed Laterality: left Qualified Code(s): S82.142A - Displaced bicondylar fracture of left tibia, initial encounter for closed fracture Condition: Stable Prescriptions: [place] 5-325 mg tablet 1 tab PO Q6H PRN (Reason: pain) 5 Days Qty: 16 RF: 0 No Action divalproex [Depakote] 500 mg tablet,delayed release (DR/EC) 500 mg PO DAILY Qty: 30 RF: 2 gabapentin 400 mg capsule 800 mg PO QID RF: 0 ropinirole 1 mg tablet 1 mg PO DAILY RF: 0 Excedrin Extra Strength 250-250-65 mg tablet 1 - 2 tab PO DAILY PRN (Reason: Headache) RF: 0 naproxen sodium [Aleve] 220 mg tablet 220 mg PO DAILY PRN (Reason: Headache) RF: 0 acetaminophen [Tylenol Extra Strength] 500 mg tablet 500 mg PO Q4H PRN (Reason: headache) RF: 0 dextroamphetamine [Zenzedi] 10 mg tablet 10 mg PO BID RF: 0 diltiazem HCl [Cardizem] 60 mg tablet 120 mg PO DAILY RF: 0 levothyroxine 75 mcg capsule 150 mcg PO DAILY RF: 0 metoprolol succinate 25 mg tablet extended release 24 hr 37.5 mg PO DAILY RF: 0 promethazine 25 mg tablet 25 mg PO Q6H PRN (Reason: migraines) Qty: 120 RF: 4 alprazolam [Xanax] 0.25 mg tablet 0.25 mg PO QDAY PRN (Reason: headaches) Qty: 30 RF: 0 Discharge Orders: Discharge Order (Routine); Ordered 08/25/19 Ordered By: Florencia Torres Referrals: Ghislaine Brown MD [Physician] - 1-3 days Diogenes Rees MD [Primary Care Provider] - Discharge Diet: Advance as tolerated Discharge Activity: Increase activity as tolerated Patient Instructions: Fractures - Knee Activity Restrictions/Additional Instructions: Please return to the ER immediately for any of the signs or symptoms listed on your discharge instruction sheets, worsening/changing of your symptoms, you are not getting better as quickly as expected, or for ANY other cause or concerns. Do not take any additional Tylenol while you are taking the prescription medicine I have prescribed you. Use your knee immobilizer and crutches at all times and do not bear weight at all on your left leg. Be certain to follow-up with Dr. Rush as soon as possible for recheck and further evaluation and care. Coding Level of Care Code ED Musical Instruments Assembler for Nanette Fwd Exam Comprehensive
[2019-08-25 22:20] VITALS: PULSE 75
--- NOTE | 2019-08-25 22:48 | XR_ITS ---
WS: [id number] XR hip LT 2-3V wo/w pel* [id number] REASON FOR EXAM: Fall/injury FINDINGS: There is mild thinning of the acetabular interspace with the hilum of the left femur consis tent with early degenerate changes. The ilium, ischium, and pubis show no definite fractures. The hip joint right and left show no fractures. 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
[2019-08-25] MEDS: HYDROcodone-acetaminophen 5-325 mg Tablet 1 TAB PO (22:49)
--- NOTE | 2019-08-25 22:49 | XR_ITS ---
WS: [id number] XR femur LT min 2V* [id number] REASON FOR EXAM: Fall/injury FINDINGS: Multiple views of the left femur show no definite fractures or other dyscrasias. The alignm ent is satisfactory. No soft tissue swelling or calcification. XR/XR femur LT min 2V* [id number] IMPRESSION: Negative left femur.
--- NOTE | 2019-08-25 22:49 | CTR_ITS ---
PROCEDURE INFORMATION: Exam: CT Left Lower Extremity Without Contrast, Knee Exam date and time: 08/25/2019 10:51 PM Age: 59 years old Clinical indication: Injury or trauma; Initial encounter; Blunt trauma; Left; Injury details: CO lt knee pain, sp fall; Additional info: Pain/injury TECHNIQUE: Imaging protocol: CT of the Left lower extremity without contrast was performed. Exam focused on the knee. Radiation optimization: All CT scans at this facility use at least one of these dose optimization techniques: automated exposure control; mA and/or kV adjustment per patient size (includes targeted exams where dose is matched to clinical indication); or iterative reconstruction. COMPARISON: No relevant prior studies available. RADIATION DOSE METRICS: Total DLP (mGy-cm): 198.83 FINDINGS: Bones/joints: There is a knee joint effusion/lipohemarthrosis. There is patellar enthesopathy. There is an impaction fracture of the posterior lateral corner of the tibia. There is a nondisplaced fracture line extending to the articular surface of the tibia. There is depression of the posterior tibial articular surface measuring 2 mm. No additional acute bony fracture. No intra-articular body. Soft tissues: No soft tissue fluid collection except for small Alcantara's cyst. Although CT scan is limited for ligament evaluation, on the sagittal images, the ACL appears somewhat ill-defined/wavy and the distal fibers are very attenuated concerning for an ACL tear. CT/CT knee LT wo con* [id number] IMPRESSION: 1. There is an impaction fracture of the posterior lateral corner of the tibia. There is a lipohemarthrosis. 2. The location of this fracture is a classic location of impaction fracture acquired during a ACL tear. Please correlate clinically if there is concern for internal derangement. An MRI may be helpful for further evaluation. Radiation Dose CTDIVOL = (mGy): DLP = 198.83 (mGy-cm)
[2019-08-26] MEDS: HYDROcodone-acetaminophen 5-325 mg Tablet 1 TAB PO (00:07)
[2019-08-26 00:12] VITALS: BP 176/99; PULSE 78; RESP 16; O2SAT 96
--- NOTE | 2019-08-26 12:09 | DCPLANNER ---
electronics department manager had message to schedule a follow up appointment for patient with ortho. electronics department manager called the ortho clinic, spoke with Olinda, gave clinic patients information. electronics department manager was told that patients information would be printed and reviewed. Clinic will call patient with appointment information.
--- NOTE | 2019-08-27 08:40 | DCPLANNER ---
Patient has a follow up appointment scheduled for , August 27, 2019 at 1:[address] Johns with the ortho clinic.
--- NOTE | 2019-09-08 15:15 | DCPLANNER ---
Patient had a follow up appointment scheduled for 08.27.19 with ortho. Patient did attend the appointment.
== END 2019-08-26 00:13 | disposition home or self-care (01) ==
PROVIDERS: Emergency Provider Emergency Medicine; PCP Family Medicine
DX: S82.142A Displaced bicondylar fracture of left tibia, initial encounter for closed fracture (principal); W01.0XXA Fall on same level from slipping, tripping and stumbling without subsequent striking against object, initial encounter; F17.210 Nicotine dependence, cigarettes, uncomplicated
CPT/HCPCS: 12345; 29530; 73502; 73552; 73562; 73700; 99282; 99283; E0114

== ENCOUNTER 2019-08-29 14:57 | Emergency (ER) | payer MEDICAID, SELFPAY ==
[2019-08-29 15:06] VITALS: BP 151/87; PULSE 84; RESP 18; TEMP 36.6; O2SAT 98; BMI 27.3
--- NOTE | 2019-08-29 15:34 | ED_ITS ---
HPI - Extremity Problem General: Chief complaint: Extremity Injury, Lower Stated complaint: knee pain Time Seen by Provider: 08/29/19 15:18 Source: patient Mode of arrival: wheelchair Limitations: no limitations History of Present Illness: HPI Narrative: Patient is a 59-year-old female who presents to ED today for complaints of left knee pain. Patient was seen at our facility on 08/24 for knee injury. She had suspicious x-ray findings at the time so underwent subsequent CT of her left knee which showed a possible impacted fracture that could be seen with an ACL tear. Patient was referred to orthopedics and was evaluated by Dr. Johns 2 days later on 08/26. After patient's visit on 08/24 Dr. Torres had written her for 16 hydrocodone for pain. Patient states she was written for one tablet every six hours but reports she took them as one tab every four hours and is therefore out. Dr. Johns did refill her pain medications (quantity of 20) but because of the previous p rescription overlapping dates they will not fill prescription until Saturday. Patient is here because of continued pain. She has an MRI being scheduled for further evaluation of her knee. MD Complaint: joint swelling and joint pain Onset (ago): day(s) Pain Consistency: constant Location: left Severity scale (1-10): 10 Radiation: none Exacerbating factors: range of motion and palpation Associated symptoms: Reports no associated symptoms; Deny fever(s) Review of Systems Const: Denies: fever(s) or chills Musc: Reports: joint pain (L knee) and joint swelling (L knee); Denies: extremity pain or extremity swelling Neuro: Denies: numbness in extremities, weakness in extremities or sensory ch anges [facility] ED PFSH: Medical History (Updated 08/29/19 @ 15:40 by GIUSEPPE [place]) Anxiety and depression Chronic migraine without aura, intractable, with status migrainosus Narcolepsy and cataplexy PRES (posterior reversible encephalopathy syndrome) Surgical History H/O tubal ligation Social History Smoking and tobacco status: current every day smoker Physical Exam Const: COMMON NORMALS: no acute distress, patient oriented x3, no limitations and alert Extremity: OTHER: pt with TTP of medial L knee; knee is warm to the touch consistent with her swelling/ effusion that is present; there is no redness to the joint; no evidence for septic joint; no swelling proximal or distal to joint; distal pulses intact Neuro: COMMON NORMALS: patient oriented x3, no focal motor deficits and no sensory deficits noted SENSORIUM/ORIENTATION: Yes alert Skin: COMMON NORMALS: no rashes or lesions noted GENERAL SKIN EXAM: no rashes or lesions noted Course Vital Signs: Vital signs: Vital Signs Temperature 97.9 F 08/29/19 15:06 Pulse Rate 84 08/29/19 15:06 Respiratory Rate 18 08/29/19 15:50 Blood Pressure 151/87 08/29/19 15:06 Pulse Oximetry 98 08/29/19 15:06 MDM - Extremity (Nontraumatic) MDM Narrative: Medical decision making narrative: Based on pts previous CT scan and Dr. Johns's evaluation, I do believe pt has legitimate pathology to her left knee. She was able to make 16 hydrocodone last over the past 4 days but unfortunately because of the overlap between Dr. Torres's prescription and Dr. Johns's, the pharmacy will not fill until Saturday. She is requesting medications to last her today/tomorrow until she can get prescription filled. She was given a shot of pain meds here and I will dispense her 4 hydrocodone tabs that she needs to make last until Saturday. Discharge Plan Discharge Patient Disposition: Home, Self-Care Clinical Impression: Strain of left knee Qualifiers: Encounter type: initial encounter Qualified Code(s): S86.912A - Strain of unspecified muscle(s) and tendon(s) at lower leg level, left leg, initial encounter Condition: Stable Prescriptions: No Action divalproex [Depakote] 500 mg tablet,delayed release (DR/EC) 500 mg PO DAILY Qty: 30 RF: 2 gabapentin 400 mg capsule 800 mg PO QID RF: 0 ropinirole 1 mg tablet 1 mg PO DAILY RF: 0 Excedrin Extra Strength 250-250-65 mg tablet 1 - 2 tab PO DAILY PRN (Reason: Headache) RF: 0 acetaminophen [Tylenol Extra Strength] 500 mg tablet 500 mg PO Q4H PRN (Reason: headache) RF: 0 dextroamphetamine [Zenzedi] 10 mg tablet 10 mg PO BID RF: 0 diltiazem HCl [Cardizem] 60 mg tablet 120 mg PO DAILY RF: 0 levothyroxine 75 mcg capsule 150 mcg PO DAILY RF: 0 promethazine 25 mg tablet 25 mg PO Q6H PRN (Reason: migraines) Qty: 120 RF: 4 duloxetine 30 mg capsule,delayed release(DR/EC) 30 mg PO DAILY RF: 0 Discharge Orders: Discharge Order (Routine); Ordered 08/29/19 Ordered By: Heather Mauro Referrals: Diogenes Rees MD [Primary Care Provider] - Activity Restrictions/Additional Instructions: You may fill Dr. Johns's prescription on Saturday for further pain control. As discussed your MRI must be completed as an outpatient. Case management should be working on this. Coding Level of Care Code ED Supervisor [employer] for [employer]ette Little Exam Expanded Problem Focused
[2019-08-29 15:50] VITALS: RESP 18
[2019-08-29] MEDS: morphine 4 mg/mL SDV 1 mL IM (15:50)
[2019-08-29] MEDS: HYDROcodone-acetaminophen 5-325 mg Tablet 4 TAB PO (15:52)
[2019-08-29 16:31] VITALS: BP 130/97; PULSE 65; RESP 16; O2SAT 97
--- NOTE | 2019-08-31 13:36 | DCPLANNER ---
er manager had message to check with Dr. Eng office to confirm that an MRI had been ordered for patient. er manager called the ortho clinic, spoke with Pat, found out that an order had been placed and patient has an MRI scheduled for September 04, 2019 at 9:30.
== END 2019-08-29 16:32 | disposition home or self-care (01) ==
PROVIDERS: Emergency Provider Physician Assistant; PCP Family Medicine
DX: S86.812A Strain of other muscle(s) and tendon(s) at lower leg level, left leg, initial encounter (principal); X58.XXXA Exposure to other specified factors, initial encounter; F17.210 Nicotine dependence, cigarettes, uncomplicated
CPT/HCPCS: 12345; 96372; 99281; 99283; J2270

== ENCOUNTER 2019-09-04 09:15 | Outpatient (CLI) | payer MEDICAID, SELFPAY ==
--- NOTE | 2019-09-04 09:22 | MR_ITS ---
WS: [id number] MRI LEFT KNEE NONCONTRAST TECHNIQUE: Axial PD, coronal PD fat sat, coronal PD, sagittal PD, and sagittal PD fat-sat images obta ined. CLINICAL INFORMATION: S86.742A Strain of unspecified muscle(s) and tendon(s) at... COMPARISON: None. FINDINGS: Normal anatomic alignment. Distal quadriceps and patella tendons are intact. Hypertrophic patella. Mo derate suprapatellar effusion. Normal posterior cruciate ligament. ACL is not visualized and appears completely disrupted. Small amount of edema along the ACL tunnel. Chronic narrowing of the medial and lateral meniscus. No acute appearing meniscal tears. Chronic intr asubstance signal abnormality in the medial and lateral meniscus. Moderate chondromalacia involving t he medial patella facet. No subchondral edema. Small lobulated popliteal cyst measuring 1.3 x 1.2 x 3.2 cm AP by transverse by craniocaudal. Normal lateral collateral ligament. Small amount of fluid and edema along the medial collateral ligament con sistent with grade 1-2 injury. Small amount of subchondral edema along the posterior lateral tibial p lateau and anterolateral femur consistent with a small amount of contusion. MR/MR knee LT wo con* [id number] IMPRESSION: 1. Complete tear of the ACL with no normal fibers visualized. Normal PCL. 2. Moderate suprapatellar effusion with hemorrhagic blood products. 3. Edema involving the superficial and deep fibers of the medial collateral li gament consistent with grade 1-2 injury. MCL is intact. 4. No acute appearing meniscal tears. Moderate narrowing of the medial and lat eral joint compartments. 5. Moderate chondromalacia involving the medial patella facet. No subchondral edema. 6. Lobulated popliteal cyst measuring 1.1 x 1.2 x 3.2 cm
== END 2019-09-04 09:16 | disposition home or self-care (01) ==
LOC: RADWPI 09:20
PROVIDERS: Family Provider Family Medicine; PCP Family Medicine; Visit Provider Orthopaedic Surgery
DX: S86.912A Strain of unspecified muscle(s) and tendon(s) at lower leg level, left leg, initial encounter (principal); S83.512A Sprain of anterior cruciate ligament of left knee, initial encounter; X58.XXXA Exposure to other specified factors, initial encounter; M71.22 Synovial cyst of popliteal space [Baker], left knee
CPT/HCPCS: 73721

== ENCOUNTER → 2019-10-01 09:14 | Outpatient (BNVA) | payer MEDICAID, SELFPAY | PROVIDERS: Family Provider Family Medicine; PCP Family Medicine; Visit Provider Specialist | DX: G43.711 Chronic migraine without aura, intractable, with status migrainosus (principal); S83.512A Sprain of anterior cruciate ligament of left knee, initial encounter | CPT/HCPCS: 64615; J0585 ==

== ENCOUNTER 2019-12-26 13:07 | Emergency (ER) | payer MEDICAID, SELFPAY ==
[2019-12-26 13:12] VITALS: BP 136/83; PULSE 92; RESP 14; TEMP 36.3; O2SAT 99; BMI 26.2
--- NOTE | 2019-12-26 13:24 | W.ED.FALL ---
HPI - Fall General: Chief Complaint: Fall Stated Complaint: fall/neck & back pain Time Seen by Provider: 12/26/19 13:19 History of Present Illness: HPI Narrative: Patient states that she fell off porch last night from a standing position landed on her buttocks complains about pain all over is able to ambulate she says says she has bruising to her elbow and to her leg. Is also complained about a migraine at this time. MD complaint: fall Onset (ago): hour(s) Fall from: standing Fall witnessed: yes, by family Place fall occurred: home Loss of consciousness: None Prolonged down time: no Symptoms prior to fall: none Context: tripped/slipped Location of injury: back Location of injury - extremities: Right: arm and lower leg Severity: mild Quality: aching Associated symptoms-after fall: Reports no associated symptoms and headache(s); Denies abdominal pain or chest pain Review of Systems Const: Denies: fever(s), chills or body aches Eyes: Denies: change in vision or blurry vision ENMT: Denies: throat pain or nasal congestion Card: Denies: chest pain or dyspnea on exertion Resp: Denies: dyspnea, productive cough or non-productive cough GI: Reports: nausea; Denies: abdominal pain or vomiting Musc: Reports: back pain, extremity pain and other (Myalgias) Skin/Breast: Denies: rash Neuro: Reports: headache(s) Psych: Denies: anxiety or depression Adi/Lymph: Denies: easy bruising PFSH ED PFSH: Medical History Anxiety and depression Chronic migraine without aura, intractable, with status migrainosus Narcolepsy and cataplexy PRES (posterior reversible encephalopathy syndrome) Surgical History H/O tubal ligation Social History Smoking and tobacco status: current every day smoker History of recent travel: No Physical Exam Const: COMMON NORMALS: no acute distress, average body habitus and patient oriented x3 HENMT: COMMON NORMALS: normocephalic HEAD & SCALP: normal to inspection and normocephalic FACE & SINUS: normal facial exam Eye: COMMON NORMALS: conjunctivae normal GENERAL EYE: appearance normal, both eyes and all related structures CONJUNCTIVA: Yes conjunctivae normal Neck/C-Spine: COMMON NORMALS: no JVD Chest: COMMONS NORMALS: normal inspection of the chest Resp: COMMON NORMALS: normal respiratory effort and clear to auscultation bilaterally AUSCULTATION: clear to auscultation bilaterally Cardio: COMMON NORMALS: no JVD, regular rate and regular rhythm RATE: regular rate RHYTHM: regular rhythm GI: COMMON NORMALS: Normal to inspection, nondistended, normoactive bowel sounds present Extremity: COMMON NORMALS: normal to inspection and full ROM NARRATIVE EXTREMITY EXAM: I palpated her legs arm low back shoulders abdomen and she had no pain with palpation she has full range of motion able ambulate able to sit up without problems there is no bruising to her low back at all no abrasions neurologically she appears intact Neuro: COMMON NORMALS: patient oriented x3 and CN's II-XII intact bilaterally Course Vital Signs: Vital signs: Vital Signs Temperature 97.3 F L 12/26/19 13:12 Pulse Rate 92 12/26/19 13:12 Respiratory Rate 14 12/26/19 13:12 Blood Pressure 136/83 12/26/19 13:12 Pulse Oximetry 99 12/26/19 13:12 Discharge Plan Discharge Condition: Good Prescriptions: No Action gabapentin 400 mg capsule 800 mg PO QID RF: 0 ropinirole 1 mg tablet 1 mg PO DAILY RF: 0 Excedrin Extra Strength 250-250-65 mg tablet 1 - 2 tab PO DAILY PRN (Reason: Headache) RF: 0 acetaminophen [Tylenol Extra Strength] 500 mg tablet 500 mg PO Q4H PRN (Reason: headache) RF: 0 dextroamphetamine [Zenzedi] 10 mg tablet 10 mg PO BID RF: 0 diltiazem HCl [Cardizem] 60 mg tablet 120 mg PO DAILY RF: 0 levothyroxine 75 mcg capsule 150 mcg PO DAILY RF: 0 hydrocodone-acetaminophen 5-325 mg tablet 1 tab PO Q6H PRNRF: 0 divalproex [Depakote] 500 mg tablet,delayed release (DR/EC) 500 mg PO DAILY Qty: 30 RF: 2 promethazine 25 mg tablet See Rx Instructions .ROUTE .COMPLEX Qty: 120 RF: 2 duloxetine 30 mg capsule,delayed release(DR/EC) 30 mg PO DAILY RF: 0 Coding Level of Care Code ED Application Technician for [employer]ette Little
[2019-12-26] MEDS: diphenhydrAMINE 50 mg/mL SDV 1mL IVP (13:42)
[2019-12-26] MEDS: ketorolac 30 mg/mL INJ IVP (13:42)
[2019-12-26] MEDS: ondansetron 2 mg/ML SDV 2 mL 8 MG IVP (13:42)
[2019-12-26] MEDS: sodium chloride 0.9% 1,000 ML 999 ML IV (13:43)
--- NOTE | 2019-12-26 14:03 | XRR_ITS ---
PROCEDURE INFORMATION: Exam: XR Lumbosacral Spine, 2 or 3 Views Exam date and time: 12/26/2019 2:04 PM Age: 59 years old Clinical indication: Injury or trauma; Fall; Blunt trauma (contusions or hematomas); Additional info: Fall, low back pain TECHNIQUE: Imaging protocol: XR of the lumbosacral spine, 2 or 3 views. COMPARISON: CR XR hip LT 2-3V wo/w pel* [id number] 08/25/2019 10:51 PM FINDINGS: Vertebrae: There is osteopenia and osteoarthritis No acute fracture. Normal alignment. Soft tissues: Unremarkable. XR/XR lumbar spine 2-3V* [id number] IMPRESSION: No acute findings.
[2019-12-26] MEDS: HYDROcodone-acetaminophen 7.5-325 mg Tablet 1 TAB PO (14:24)
== END 2019-12-26 14:56 | disposition home or self-care (01) ==
PROVIDERS: Emergency Provider Nurse Practitioner Family; Family Provider Family Medicine; PCP Family Medicine
DX: R52 Pain, unspecified (principal); F17.210 Nicotine dependence, cigarettes, uncomplicated
CPT/HCPCS: 12345; 72100; 96361; 96374; 96375; 99282; 99283; J1200; J1885; J2405; J7030

== ENCOUNTER → 2020-02-18 09:54 | Outpatient (BNVA) | payer MEDICAID, SELFPAY | PROVIDERS: Family Provider Family Medicine; PCP Family Medicine; Visit Provider Specialist | DX: G43.711 Chronic migraine without aura, intractable, with status migrainosus (principal); F17.210 Nicotine dependence, cigarettes, uncomplicated | CPT/HCPCS: 64615; J0585 ==

== ENCOUNTER → 2020-05-12 09:50 | Outpatient (BNVA) | payer MEDICAID, SELFPAY | PROVIDERS: Family Provider Family Medicine; PCP Family Medicine; Visit Provider Specialist | DX: G43.711 Chronic migraine without aura, intractable, with status migrainosus (principal); M77.9 Enthesopathy, unspecified; F17.210 Nicotine dependence, cigarettes, uncomplicated | CPT/HCPCS: 64615; 99212; J0585 ==

== ENCOUNTER → 2020-08-04 09:35 | Outpatient (BNVA) | payer MEDICAID, SELFPAY | PROVIDERS: Family Provider Family Medicine; PCP Family Medicine; Visit Provider Specialist | DX: G43.711 Chronic migraine without aura, intractable, with status migrainosus (principal); M77.9 Enthesopathy, unspecified; F17.210 Nicotine dependence, cigarettes, uncomplicated | CPT/HCPCS: 64615; J0585 ==

== ENCOUNTER → 2020-10-27 11:00 | Outpatient (BNVA) | payer MEDICAID, SELFPAY | PROVIDERS: Family Provider Family Medicine; PCP Family Medicine; Visit Provider Specialist | DX: G43.709 Chronic migraine without aura, not intractable, without status migrainosus (principal) | CPT/HCPCS: 64615; J0585 ==

== ENCOUNTER → 2021-01-02 08:28 | Outpatient (BNVA) | payer MEDICAID, SELFPAY | PROVIDERS: Family Provider Family Medicine; PCP Family Medicine; Referring Provider Family Medicine; Visit Provider Specialist | DX: R93.89 Abnormal findings on diagnostic imaging of other specified body structures (principal); G43.711 Chronic migraine without aura, intractable, with status migrainosus; F41.9 Anxiety disorder, unspecified; F32.A Depression, unspecified; Z86.61 Personal history of infections of the central nervous system | CPT/HCPCS: 99214; 99215 ==

== ENCOUNTER 2021-01-06 13:59 | Outpatient (CLI) | payer MEDICAID, SELFPAY ==
--- NOTE | 2021-01-06 14:30 | CT_ITS ---
WS: [id number] [id number] Date/Time of Exam: 01/06/2021 2:43 PM Reason For Exam: R47.81 - Slurred speech DLP: 1752.[address] scans at [facility] use at least one of these dose optimization techniques: automated e xposure control; mA and/or kV adjustment per patient size (includes targeted exams where dose is matc hed to clinical indication); or iterative reconstruction. CTA of the head and neck is performed in the axial plane with sagittal, coronal and 3-D reformatted i mages. Intravenous contrast was administered for the exam. CTA of the neck. The right and left common carotid arteries are widely patent. There is moderate plaq uing of the proximal right and left internal carotid arteries but no significant luminal narrowing or flow compromise is demonstrated. The left side is somewhat more calcified than the right. Images of the neck show no neck mass or significant cervical lymphadenopathy. The airway is patent. N o mass is seen in the region of the tongue base. No superior mediastinal lymphadenopathy. The great v essels appear to be patent at the level of the aortic arch. The lung apices are clear. Emphysematous changes noted in the upper lung zones. CT/CT angio [facility]* [id number] IMPRESSION: 1. The right and left common and extracranial internal carotid arteries are pat ent without critical stenosis. No evidence of a dissection or aneurysm was demo nstrated. 2. Moderate calcified plaquing at both carotid bifurcations the left is more ad vanced than the right but there was no flow compromise. CTA of the head. The intracranial internal carotid arteries are widely patent. The anterior, middle, and posterior cerebral arteries are also patent without c ritical stenosis or occlusion. There was no sign of obvious aneurysm or dissect ion. Images of the brain demonstrate no mass or extra-axial fluid collection. No sig n of acute bleed. The ventricles and basal cisterns are normal in size. The sku ll is unremarkable. IMPRESSION: 1. The intracranial internal carotid arteries and all major branches were paten t without critical stenosis or occlusion. No sign of aneurysm or dissection.
[2021-01-06] MEDS: iohexol 350 mg/mL 100 mL Btl IV (15:03)
== END 2021-01-06 14:00 | disposition home or self-care (01) ==
PROVIDERS: PCP Family Medicine; Visit Provider Specialist
DX: I63.9 Cerebral infarction, unspecified (principal); R47.81 Slurred speech
CPT/HCPCS: 70496; 70498; 99215; Q9967

== ENCOUNTER 2021-01-18 17:39 | Emergency (ER) | payer MEDICAID, SELFPAY ==
[2021-01-18] VITALS (8 sets, daily range): BP systolic 169–186; BP diastolic 95–109; PULSE 56–66; RESP 12–22; TEMP 36.6; O2SAT 94–100; BMI 25.0
--- NOTE | 2021-01-18 17:49 | W.ED.SEIZURE ---
HPI - Seizure General: Chief Complaint: Seizure Stated Complaint: SEIZURES Time Seen by Provider: 01/18/21 17:49 History of Present Illness: HPI Narrative: Ms. Srivastava is a 60-year-old lady with history of anxiety, depression, thyroid disorder who presents to the emergency department due to seizure-like activity. Seizure activity was witnessed and sudden onset, she reports proceeding bad headache followed by not remembering. Witnessed activity was shaking of the right side of her body starting with her arm followed by postictal period of confusion. Overall the shaking lasted perhaps 3 to 4 minutes. Upon arrival patient is still mildly postictal. No similar episodes in the past, no known specific triggering, exacerbating, or provoking factors. History otherwise limited by patient's current mental status. Review of Systems General: Reports: ROS unobtainable due to mental status PFS ED PFSH: Medical History (Updated 01/18/21 @ 23:28 by Sukh Gore MD) Anxiety and depression Chronic migraine without aura, intractable, with status migrainosus Narcolepsy and cataplexy PRES (posterior reversible encephalopathy syndrome) Surgical History H/O tubal ligation Social History Alcohol intake: never History of recent travel: No Physical Exam Narrative: EXAM NARRATIVE: GENERAL/CONSTITUTIONAL - well-appearing. No acute distress. Eyes -no scleral icterus, no conjunctival injection ENMT - Atraumatic external nose and ears. Moist mucous membranes NECK - supple. trachea midline CARDIOVASCULAR - regular rate and rhythm. RESPIRATORY -clear to auscultation bilaterally. ABDOMEN/GI - Nontender/Nondistended. MSK - Extremities without obvious deformity or tenderness to palpation SKIN - Warm, Dry NEURO - alert but somewhat confused, appears postictal. Moves all extremities without focal neurologic deficits appreciated on clinical exam. Course ED course: - Patient was seen and evaluated by me at bedside - Patient placed on cardiac monitors, IV access obtained - Initial evaluation notable for postictal, no acute distress - Labs notable for leukocytosis which may be reactive. Mild evidence of dehydration/seizure. Delta troponin negative. TSH elevated with mildly decreased free T4. Urinalysis not concerning for urinary tract infection in the absence of symptoms. - Imaging notable for no acute abnormality to explain patient's symptoms. CT head negative within 6 hours of symptoms onset - Upon serial reexamination after treatment the patient was improved with resolution to baseline mental status - Based on patient history, evaluation, labs, and imaging as interpreted the most likely cause of the patient's condition is seizure of unclear etiology - The results of ED evaluation were discussed with the patient including prescriptions and/or symptomatic cares (if applicable) including appropriate and responsible use, followup plan, and return precautions. Seizure precautions discussed. The patient verbalized understanding and felt safe for discharge. - Patient discharged in satisfactory condition. Vital Signs: Vital signs: Vital Signs Temperature 97.9 F 01/18/21 18:23 Pulse Rate 57 L 01/19/21 00:34 Respiratory Rate 16 01/19/21 00:34 Blood Pressure 162/101 01/19/21 00:34 Pulse Oximetry 99 01/19/21 00:34 MDM - Seizure Medical Records: Attestation: I reviewed the patient's medical records. Lab Data: Attestation: I reviewed the patient's lab results. Labs: Lab Results 01/18/21 01/18/21 01/18/21 18:44 18:49 19:45 WBC 14.0 10^3/uL H 10 ^3/uL (4.0-10.0) RBC 4.87 10^6/uL 10^6 /uL (4.1-5.3) Hgb 14.9 g/dL g/dL (11.5-15.3) Hct 48.6 % H % (37.0-47.0) MCV 99.8 fl H fl (81-99) MCH 30.6 pg pg (28.0-34.0) MCHC 30.7 g/dL g/dL (30.0-36.0) RDW 13.9 % % (12.1-15.1) Plt Count 376 10^3/cmm 10^3 /cmm (130-400) MPV 9.3 fL fL (7.4-10.4) Neut % (Auto) 81.9 % % Lymph % (Auto) 9.9 % % [place] % (Auto) 5.2 % % Eos % (Auto) 1.2 % % Baso % (Auto) 1.1 % % Neut # (Auto) 11.44 10^3/uL H 1 0^3/uL (1.8-7.7) Lymph # (Auto) 1.4 10^3/uL 10^3/ uL (0.8-4.8) [place] # (Auto) 0.7 10^3/uL 10^3/ uL (0.2-0.9) Eos # (Auto) 0.2 10^3/uL 10^3/ uL (0.0-0.8) Baso # (Auto) 0.2 10^3/uL H 10^ 3/uL (0.0-0.1) Nucleated RBC % (a uto) 0 % % Nucleated RBCs # 0.0 /100WBC /100W BC Sodium Potassium Chloride Carbon Dioxide Anion Gap BUN Creatinine GFR Calculation Glucose Calculated Osmolal ity Calcium Magnesium Total Bilirubin AST ALT Alkaline Phosphata se Troponin T Baselin e Troponin T 120 Min [place] Delta Troponin T Total Protein Albumin Globulin TSH Free T4 HCG, Qual Negative (Negative) Urine Color Yellow (Yellow) Urine Appearance Hazy A (CLEAR) Urine pH 5 (5-7) Ur Specific Gravit y 1.020 (1.005-1.030) Urine Protein 1+ H (Negative) Urine Glucose (UA) Norm (Normal) Urine Ketones Negative (Negative) Urine Blood Neg (Negative) Urine Nitrate Negative (Negative) Urine Bilirubin 1+ H (Negative) Urine Urobilinogen Norm mg/dL mg/dL (Negative) Ur Leukocyte Nallely ase Negative (Negative) Urine RBC 0-4 /hpf H /hpf (0-2) Urine WBC 5-10 /hpf H /hpf (0-5) Ur Squamous Epith Cells 0-4 /hpf H /hpf (0-5) Amorphous Sediment Not Reportable Urine Bacteria Trace /hpf /hpf (NONE) Hyaline Casts 0-4 /lpf H /lpf Urine Mucus 2+ /hpf /hpf Salicylates Acetaminophen Ethyl Alcohol 01/18/21 01/18/21 01/18/21 19:45 19:45 22:23 WBC RBC Hgb Hct MCV MCH MCHC RDW Plt Count MPV Neut % (Auto) Lymph % (Auto) [place] % (Auto) Eos % (Auto) Baso % (Auto) Neut # (Auto) Lymph # (Auto) [place] # (Auto) Eos # (Auto) Baso # (Auto) Nucleated RBC % (a uto) Nucleated RBCs # Sodium 132 mmol/L L mmol /L (136-145) Potassium 4.3 mmol/L mmol/L (3.5-5.1) Chloride 102 mmol/L mmol/L (98-107) Carbon Dioxide 15 mmol/L L mmol/ L (22-29) Anion Gap 19.3 H (5-19) BUN 16 mg/dL mg/dL (6-20) Creatinine 0.8 mg/dL mg/dL (0.5-0.9) GFR Calculation 73.4 mL/min L mL/ min (90-130) Glucose 89 mg/dL mg/dL (65-115) Calculated Osmolal ity 275 mOsm/kg L mOs m/kg (285-295) Calcium 8.8 mg/dL mg/dL (8.5-10.5) Magnesium 2.4 mg/dL H mg/dL (1.7-2.3) Total Bilirubin 0.3 mg/dL mg/dL (0.15-1.2) AST 17 U/L U/L (0-32) ALT 6 U/L U/L (0-33) Alkaline Phosphata se 58 IU/L IU/L (35-105) Troponin T Baselin e 20 ng/L H ng/L (0-10) Troponin T 120 Min [place] 20.16 ng/L H ng/L (0-10) Delta Troponin T 0.16 ABS# ABS# (0-10) Total Protein 7.1 g/dL g/dL (6.6-8.7) Albumin 3.9 g/dL g/dL (3.5-5.2) Globulin 3.2 g/dL g/dL (1.3-4.6) TSH 35.21 uIU/mL H uI U/mL (0.27-4.20) Free T4 HCG, Qual Urine Color Urine Appearance Urine pH Ur Specific Gravit y Urine Protein Urine Glucose (UA) Urine Ketones Urine Blood Urine Nitrate Urine Bilirubin Urine Urobilinogen Ur Leukocyte Nallely ase Urine RBC Urine WBC Ur Squamous Epith Cells Amorphous Sediment Urine Bacteria Hyaline Casts Urine Mucus Salicylates < 0.3 mg/dL L mg/ dL (3-10) Acetaminophen 6.8 ug/mL L ug/mL (10-30) Ethyl Alcohol < 10 mg/dL mg/dL (0-10) 01/18/21 22:23 WBC RBC Hgb Hct MCV MCH MCHC RDW Plt Count MPV Neut % (Auto) Lymph % (Auto) [place] % (Auto) Eos % (Auto) Baso % (Auto) Neut # (Auto) Lymph # (Auto) [place] # (Auto) Eos # (Auto) Baso # (Auto) Nucleated RBC % (a uto) Nucleated RBCs # Sodium Potassium Chloride Carbon Dioxide Anion Gap BUN Creatinine GFR Calculation Glucose Calculated Osmolal ity Calcium Magnesium Total Bilirubin AST ALT Alkaline Phosphata se Troponin T Baselin e Troponin T 120 Min [place] Delta Troponin T Total Protein Albumin Globulin TSH Free T4 0.59 ng/dL L ng/d L (0.82-1.77) HCG, Qual Urine Color Urine Appearance Urine pH Ur Specific Gravit y Urine Protein Urine Glucose (UA) Urine Ketones Urine Blood Urine Nitrate Urine Bilirubin Urine Urobilinogen Ur Leukocyte Nallely ase Urine RBC Urine WBC Ur Squamous Epith Cells Amorphous Sediment Urine Bacteria Hyaline Casts Urine Mucus Salicylates Acetaminophen Ethyl Alcohol EKG Data^: EKG 1: Attestation: I personally reviewed and interpreted this EKG as follows: EKG interpretation date: 01/18/21 EKG interpretation time: 18:33 Interpretation: Twelve-lead EKG shows a regular rhythm at a rate of 60. CT interval 170, QRS duration 109, QTc 413. Left axis deviation. Interpretation: Sinus rhythm. Discharge Plan Discharge Patient Disposition: Home Clinical Impression: Seizure, Thyroid disorder Condition: Stable Prescriptions: No Action ibuprofen 600 mg tablet 600 mg PO TID RF: 0 gabapentin 400 mg capsule 800 mg PO TID RF: 0 ropinirole 1 mg tablet 1 mg PO DAILY RF: 0 Excedrin Extra Strength 250-250-65 mg tablet 1 - 2 tab PO DAILY PRN (Reason: Headache) RF: 0 dextroamphetamine [Zenzedi] 10 mg tablet 10 mg PO BID RF: 0 diltiazem HCl [Cardizem] 60 mg tablet 120 mg PO DAILY RF: 0 levothyroxine 75 mcg capsule See Rx Instructions .ROUTE .COMPLEX RF: 0 Cortisporin-TC 3.3-3-10-0.5 mg/mL drops,suspension 4 drp otic (ear) TID RF: 0 buspirone 10 mg tablet 10 mg PO BID RF: 0 promethazine 25 mg tablet See Rx Instructions .ROUTE .COMPLEX Qty: 120 RF: 0 divalproex 500 mg tablet,delayed release (DR/EC) See Rx Instructions .ROUTE .COMPLEX Qty: 30 RF: 0 propranolol 20 mg tablet 20 mg PO TID Qty: 90 RF: 0 duloxetine 30 mg capsule,delayed release(DR/EC) 60 mg PO DAILY RF: 0 Discharge Orders: Discharge ED (Routine); Ordered 01/18/21 Ordered By: Sukh Gore Referrals: Diogenes Rees MD [Primary Care Provider] - Discharge Diet: Usual diet Discharge Activity: Limit activity as instructed Patient Instructions: Hypothyroidism (ED), New-Onset Seizure in Adults (ED), Opioid Safety Activity Restrictions/Additional Instructions: Thank you for visiting the emergency department. You were seen and evaluated for new onset seizure. The exact cause of your symptoms is unclear however based on description it does sound like a true seizure. I do not see any obvious laboratory abnormality that would have caused this and I do not see any evidence of stroke based on exam and imaging. Lab linton you were noted to have lower free T4 than I would expect, this requires likely medication adjustment and you need to follow-up with your primary care provider this week. Please also follow-up with neurology. For seizures you should not drive, operate heavy machinery, cook over at a open flame, climb tall objects, bathe alone, swim, or perform any other task that would be dangerous if you were to have another seizure. Please return to the emergency department for recurrent symptoms or anything else that you are concerned about and feel needs emergency department evaluation. Coding Level of Care Code ED Dry Ice Maker for Nanette Little
--- NOTE | 2021-01-18 18:00 | XRR_ITS ---
PROCEDURE INFORMATION: Exam: XR Chest Exam date and time: 01/18/2021 6:00 PM Age: 60 years old Clinical indication: Sternal or substernal pain; Patient HX: AMS, cp, poor historian; Additional info: Seizure, AMS TECHNIQUE: Imaging protocol: XR of the chest. Views: 1 view. Total images: 1 COMPARISON: CR Chest 1 view [id number] 11/24/2017 8:43 PM FINDINGS: Lungs: No visible active interstitial or alveolar airspace disease. Pleural spaces: Unremarkable. No pleural effusion. No pneumothorax. Heart/Mediastinum: Cardiac structures and configuration within normal limits. Bones/joints: Unremarkable. XR/XR chest 1V portable [id number] IMPRESSION: Nonacute. Six Radiation Dose CTDIVOL = (mGy): DLP = (mGy-cm)
--- NOTE | 2021-01-18 18:00 | CTR_ITS ---
PROCEDURE INFORMATION: Exam: CT Head Without Contrast Exam date and time: 01/18/2021 6:00 PM Age: 60 years old Clinical indication: Condition or disease; Convulsions or seizures; Additional info: Seizure, new onset TECHNIQUE: Imaging protocol: Computed tomography of the head without contrast. Total images: 191 Radiation optimization: All CT scans at this facility use at least one of these dose optimization techniques: automated exposure control; mA and/or kV adjustment per patient size (includes targeted exams where dose is matched to clinical indication); or iterative reconstruction. COMPARISON: CT angio headneck* [id number] 01/06/2021 2:55 PM RADIATION DOSE METRICS: Total DLP (mGy-cm): 710.64 FINDINGS: Brain: No evidence of active or acute intracranial pathologic process, hemorrhage, or trauma. No visible evidence of diffuse cerebral edema or generalized demyelination. No hyperdense MCA or insular ribbon sign. No mass effect. No midline shift. Cerebral ventricles: No ventriculomegaly. Paranasal sinuses: Visualized sinuses are unremarkable. No fluid levels. Mastoid air cells: Visualized mastoid air cells are well aerated. Bones/joints: No visible acute osseous abnormality. Potential old fracture of the medial right orbital wall. Soft tissues: Unremarkable. CT/CT head wo con* [id number] IMPRESSION: No evidence of active or acute intracranial pathologic process, hemorrhage, or trauma. Radiation Dose CTDIVOL = (mGy): DLP = 710.64 (mGy-cm)
--- NOTE | 2021-01-18 18:01 | ECG_ITS ---
[facility] Test Date: 2021-01-18 Pat Name: Kamala Srivastava Department: Room: Gender: Female Para Educator: : 1960 Requested By: Sukh Gore Order Number: [id number] Indra MD: Ann Abrams M.D. Measurements Intervals [place] Rate: 60 P: 61 NM: 170 QRS: -71 QRSD: 109 T: -37 QT: 411 QTc: 413 Interpretive Statements SINUS RHYTHM LEFT AXIS DEVIATION [QRS AXIS < -30] PATTERN CONSISTENT WITH PULMONARY DISEASE INCOMPLETE RIGHT BUNDLE BRANCH BLOCK [90+ ms QRS DURATION, TERMINAL R IN V1/V2, 40+ ms S IN I/aVL/V4/V5/V6] SEPTAL MYOCARDIAL INFARCTION , PROBABLY OLD [40+ ms Q WAVE IN V1/V2] MODERATE T-WAVE ABNORMALITY, CONSIDER LATERAL ISCHEMIA [-0.1+ mV T-WAVE IN I/aVL/V5/V6] Compared to ECG 11/21/2018 10:19:52, Left-axis deviation now present Incomplete right bundle-branch block now present. T-wave abnormality now present Possible ischemia now present. Left anterior fascicular block no longer present Myocardial infarct finding still present Electronically Signed On 01-18-2021 20:46:07 STITCH BONDER MACHINE OPERATOR HELPER by Ann Abrams M.D. [email or web address]
--- NOTE | 2021-01-18 18:15 | PC.NURSE ---
Pt arrvied via EMS from home where she lives with family. EMS states around 1600 family witnessed pt start acting strangely , pt became confused for a few minutes and the both arms curled up, pt fell forward to the ground and began sezizing. Family reported pt had a LOC for approximately 3-4 mihutes. EMS reports pt was unresponsive on arrival, pt was given 2mg Versed Intra nasally and became combative and appeared to slightly become more awake but was still noted to be confused. EMS placed 22g in left forearm. EMS reports pt began having rhymthic type seizure to her right side for an unknown amount fo time. EMS reports pt was still confused for majority of the ride in, becoming more alert about 5 minutes from the hospital. Family reports to EMS a dx of possible lesions on the brain many years ago but pt denies this.Pt reports she feels horrible and has a WANG . Pts blood glucose 171, vss en route, pt placed on monitor.
--- NOTE | 2021-01-18 18:56 | CTR_ITS ---
PROCEDURE INFORMATION: Exam: CT Angiography Head With Contrast, Arteriography Exam date and time: 01/18/2021 6:56 PM Age: 60 years old Clinical indication: Convulsions / seizures; Additional info: AMS, new onset seizure TECHNIQUE: Imaging protocol: Computed tomography angiography of the head with contrast. Exam focused on the arteries. 3D rendering (Not supervised by radiologist): MIP and/or 3D reconstructed images were created by the technologist. Total images: 780 Radiation optimization: All CT scans at this facility use at least one of these dose optimization techniques: automated exposure control; mA and/or kV adjustment per patient size (includes targeted exams where dose is matched to clinical indication); or iterative reconstruction. Contrast material: OMNI 350; Contrast volume: 95 ml; Contrast route: INTRAVENOUS (IV); COMPARISON: CT angio headneck* [id number] 01/06/2021 2:55 PM RADIATION DOSE METRICS: Total DLP (mGy-cm): 1904 FINDINGS: ANTERIOR CIRCULATION: Right internal carotid artery: Unremarkable. Intracranial segment is patent with no significant stenosis. No aneurysm. Right middle cerebral artery: Unremarkable. No occlusion or significant stenosis. No aneurysm. Right anterior cerebral artery: Hypoplastic right A1 segment. Remainder of the anterior cerebral artery unremarkable. No occlusion or significant stenosis. No aneurysm. Left internal carotid artery: Unremarkable. Intracranial segment is patent with no significant stenosis. No aneurysm. Left middle cerebral artery: Unremarkable. No occlusion or significant stenosis. No aneurysm. Left anterior cerebral artery: Unremarkable. No occlusion or significant stenosis. No aneurysm. POSTERIOR CIRCULATION: Right vertebral artery: Unremarkable. No occlusion or significant stenosis. No aneurysm. Left vertebral artery: Unremarkable. No occlusion or significant stenosis. No aneurysm. Basilar artery: Unremarkable. No occlusion or significant stenosis. No aneurysm. Right posterior cerebral artery: origin. No occlusion or significant stenosis. No aneurysm. Left posterior cerebral artery: Unremarkable. No occlusion or significant stenosis. No aneurysm. IMPRESSION: 1. No large vessel stenosis or occlusion. 2. Hypoplastic right A1 segment. 3. origin of the right posterior cerebral artery a normal anatomical variant. PROCEDURE INFORMATION: Exam: CT Angiography Neck With Contrast Exam date and time: 01/18/2021 6:56 PM Age: 60 years old Clinical indication: Convulsions / seizures; Additional info: AMS, new onset seizure TECHNIQUE: Imaging protocol: Computed tomography angiography of the neck with contrast. 3D rendering (Not supervised by radiologist): MIP and/or 3D reconstructed images were created by the technologist. Radiation optimization: All CT scans at this facility use at least one of these dose optimization techniques: automated exposure control; mA and/or kV adjustment per patient size (includes targeted exams where dose is matched to clinical indication); or iterative reconstruction. Contrast material: OMNI 350; Contrast volume: 95 ml; Contrast route: INTRAVENOUS (IV); COMPARISON: CT angio headneck* [id number] 01/06/2021 2:55 PM RADIATION DOSE METRICS: Total DLP (mGy-cm): 1904 FINDINGS: Right common carotid artery: No stenosis. No dissection or occlusion. Right internal carotid artery: Minimal atheromatous plaquing at the ostium of the ICA. No hemodynamically significant stenosis of the extracranial segment. No dissection or occlusion. Right external carotid artery: No occlusion or stenosis of the origin. Left common carotid artery: No stenosis. No dissection or occlusion. Left internal carotid artery: Tortuous proximal course. Hard atheromatous plaquing not resulting in stenosis of 40% or greater. No hemodynamically significant stenosis of the extracranial segment. No dissection or occlusion. Left external carotid artery: No occlusion or stenosis of the origin. Right vertebral artery: No stenosis. No dissection or occlusion. Left vertebral artery: No stenosis. No dissection or occlusion. Soft tissues: Unremarkable. No significant soft tissue swelling. Bones/joints: No acute fracture. Degenerative disease and degenerative disc disease C6/C7. Lungs: Centrilobular emphysema. CT/CT angio headne* [id number] IMPRESSION: No hemodynamically significant stenosis or occlusion. REFERENCES: NASCET CRITERIA. The degree of internal carotid artery stenosis is based on NASCET criteria. Normal is no stenosis. Mild is less than 50% stenosis. Moderate is 50-69% stenosis. Severe is 70% to 99% stenosis. Total occlusion is no detectable patent lumen. Radiation Dose CTDIVOL = (mGy): DLP = 1904~1904 (mGy-cm)
[2021-01-18] MEDS: iohexol 350 mg/mL 100 mL Btl IV (19:06)
[2021-01-18 19:14] LABS: Urine Color Yellow (Yellow)
[2021-01-18 19:15] LABS: Add Urine Microscopic? YES; Bilirubin Urine 1+ (Negative); Blood Urine Neg (Negative); Glucose Urine UA Norm (Normal); Ketones Urine Negative (Negative); Leukocyte Esterase Urine Negative (Negative); Nitrate Urine Negative (Negative); Protein Urine 1+ (Negative); Urobilinogen Urine Norm (Negative); pH Urine 5 (5-7)
[2021-01-18 19:16] LABS: Squamous Epithelial Cell Urine 0-4 /hpf (0-5)
[2021-01-18 19:17] LABS: Add Urine Culture? No; Bacteria Urine TRACE /hpf; Mucus Urine 2+ /hpf; RBC Urine 0-4 /hpf (0-2); Urine Appearance Hazy (CLEAR)
[2021-01-18 19:22] LABS: Hyaline Casts Urine 0-4 /lpf
[2021-01-18 19:30] LABS: HCG Qualitative Urine. Negative (Negative)
--- NOTE | 2021-01-18 20:01 | ECG_ITS ---
[facility] Test Date: 2021-01-18 Pat Name: Kamala Srivastava Department: Room: Gender: Female Oven Attendant: : 1960 Requested By: Sukh Gore Order Number: [id number] Indra MD: Ann Abrams M.D. Measurements Intervals [place] Rate: 66 P: 64 AL: 171 QRS: -68 QRSD: 116 T: 28 QT: 407 QTc: 429 Interpretive Statements SINUS RHYTHM INCOMPLETE RIGHT BUNDLE BRANCH BLOCK [90+ ms QRS DURATION, TERMINAL R IN V1/V2, 40+ ms S IN I/aVL/V4/V5/V6] LEFT ANTERIOR FASCICULAR BLOCK [QRS AXIS <= -45, QR IN I, RS IN II] SEPTAL MYOCARDIAL INFARCTION , PROBABLY OLD [40+ ms Q WAVE IN V1/V2] MODERATE T-WAVE ABNORMALITY, CONSIDER LATERAL ISCHEMIA [-0.1+ mV T-WAVE IN I/aVL/V5/V6] MODERATE T-WAVE ABNORMALITY, CONSIDER INFERIOR ISCHEMIA [-0.1+ mV T-WAVE IN II/aVF] Compared to ECG 01/18/2021 18:28:31. Left anterior fascicular block now present Left-axis deviation no longer present. Myocardial infarct finding still present T-wave abnormality still present. Possible ischemia still present Electronically Signed On 01-18-2021 20:52:35 DEGREASER OPERATOR by Ann Abrams M.D. [id number]
[2021-01-18 20:05] LABS: Basophils # 0.2 10^3/uL (0.0-0.1); Basophils % 1.1 %; Eosinophils # 0.2 10^3/uL (0.0-0.8); Eosinophils % 1.2 %; Hematocrit 48.6 % (37.0-47.0); Hemoglobin 14.9 g/dL (11.5-15.3); Lymphocytes # 1.4 10^3/uL (0.8-4.8); Lymphocytes % 9.9 %; Mean Corpuscular HGB Conc 30.7 g/dL (30.0-36.0); Mean Corpuscular Hemoglobin 30.6 pg (28.0-34.0); Mean Corpuscular Volume 99.8 fl (81-99); Mean Platelet Volume 9.3 fL (7.4-10.4); Monocytes # 0.7 10^3/uL (0.2-0.9); Monocytes % 5.2 %; Neutrophils # 11.44 10^3/uL (1.8-7.7); Neutrophils % 81.9 %; Nucleated Red Blood Cells % 0 %; Platelet Count 376 10^3/cmm (130-400); Red Blood Count 4.87 10^6/uL (4.1-5.3); Red Cell Distribution Width 13.9 % (12.1-15.1)
[2021-01-18 21:00] LABS: Troponin(5th) Baseline 20 ng/L (0-10)
[2021-01-18 21:13] LABS: Acetaminophen 6.8 ug/mL (10-30); Alanine Aminotransferase 6 U/L (0-33); Albumin Level 3.9 g/dL (3.5-5.2); Alcohol Level < 10 mg/dL (0-10); Alkaline Phosphatase 58 IU/L (35-105); Blood Urea Nitrogen 16 mg/dL (6-20); Calcium 8.8 mg/dL (8.5-10.5); Carbon Dioxide 15 mmol/L (22-29); Chloride 102 mmol/L (98-107); Globulin 3.2 g/dL (1.3-4.6); Glomerular Filtration Rate 73.4 mL/min (90-130); Glucose 89 mg/dL (65-115); Magnesium 2.4 mg/dL (1.7-2.3); Osmolality Calculated 275 mOsm/kg (285-295); Salicylate < 0.3 mg/dL (3-10); Sodium 132 mmol/L (136-145); Thyroid Stimulating Hormone 35.21 uIU/mL (0.27-4.20); Total Bilirubin 0.3 mg/dL (0.15-1.2); Total Protein 7.1 g/dL (6.6-8.7)
[2021-01-18 21:14] LABS: Anion Gap 19.3 (5-19); Aspartate Amino Transferase 17 U/L (0-32); Potassium 4.3 mmol/L (3.5-5.1)
[2021-01-18] MEDS: sodium chloride 0.9% 1,000 ML 999 ML IV (21:22)
[2021-01-18] MEDS: morphine 4 mg/mL SDV 1 mL IVP (21:22)
[2021-01-18 23:07] LABS: Free T4 Free Thyroxine 0.59 ng/dL (0.82-1.77)
[2021-01-18 23:37] LABS: Troponin 5 2HR 20.16 ng/L (0-10); Troponin 5 2HR Delta 0.16 ABS# (0-10)
[2021-01-19 00:13] VITALS: BP 172/101; PULSE 57; RESP 14; O2SAT 99
[2021-01-19 00:34] VITALS: BP 162/101; PULSE 57; RESP 16; O2SAT 99
== END 2021-01-19 00:10 | disposition home or self-care (01) ==
PROVIDERS: Emergency Provider Emergency Medicine; PCP Family Medicine
DX: R56.9 Unspecified convulsions (principal); E07.9 Disorder of thyroid, unspecified
CPT/HCPCS: 70450; 70496; 70498; 71045; 80053; 80307; 81001; 81025; 83735; 84439; 84443; 84484; 85025; 93005; 96361; 96374; 99284; J2270; J7030; Q9967

== ENCOUNTER 2022-10-04 12:43 | Oncology outpatient (recurring) (ONCR) | payer MEDICAID, SELFPAY ==
[2022-09-14 11:46] LABS: Basophils # 0.1 10^3/uL (0.0-0.1); Basophils % 1.7 %; Eosinophils # 0.3 10^3/uL (0.0-0.8); Hematocrit 48.2 % (37.0-47.0); Hemoglobin 15.7 g/dL (11.5-15.3); Lymphocytes # 1.4 10^3/uL (0.8-4.8); Lymphocytes % 17.5 %; Mean Corpuscular HGB Conc 32.6 g/dL (30.0-36.0); Mean Corpuscular Hemoglobin 30.5 pg (28.0-34.0); Mean Corpuscular Volume 93.6 fl (81-99); Mean Platelet Volume 9.1 fL (7.4-10.4); Monocytes # 0.6 10^3/uL (0.2-0.9); Monocytes % 7.3 %; Neutrophils # 5.76 10^3/uL (1.8-7.7); Neutrophils % 69.8 %; Nucleated Red Blood Cells % 0 %; Platelet Count 401 10^3/cmm (130-400); Red Blood Count 5.15 10^6/uL (4.1-5.3); Red Cell Distribution Width 14.2 % (12.1-15.1); White Blood Count 8.3 10^3/uL (4.0-10.0)
[2022-09-14 12:05] LABS: Alanine Aminotransferase 15 U/L (0-33); Albumin Level 4.6 g/dL (3.5-5.2); Alkaline Phosphatase 64 U/L (35-105); Anion Gap 13.6 (5-19); Aspartate Amino Transferase 18 U/L (0-32); Blood Urea Nitrogen 20 mg/dL (8-23); Calcium 9.6 mg/dL (8.5-10.5); Carbon Dioxide 22 mmol/L (22-29); Chloride 105 mmol/L (98-107); Ferritin 16 ng/mL (15-150); Glomerular Filtration Rate 56.4 mL/min (90-130); Glucose 84 mg/dL (65-115); Iron 74 ug/dL (37-145); Osmolality Calculated 284 mOsm/kg (285-295); Potassium 4.6 mmol/L (3.5-5.1); Sodium 136 mmol/L (136-145); Total Bilirubin 0.3 mg/dL (0.15-1.2); Total Protein 7.6 g/dL (6.6-8.7)
== END 2022-10-08 23:59 | disposition home or self-care (01) ==
PROVIDERS: PCP Family Medicine; Visit Provider Internal Medicine Medical Oncology
DX: D50.9 Iron deficiency anemia, unspecified (principal); N18.9 Chronic kidney disease, unspecified
CPT/HCPCS: 36415; 80053; 82668; 82728; 83540; 84238; 85025; 85045; 99203; 99213

== ENCOUNTER → 2022-12-17 08:59 | Outpatient (BNVA) | payer MEDICAID, SELFPAY | PROVIDERS: PCP Family Medicine; Visit Provider Internal Medicine Pulmonary Disease | DX: J44.9 Chronic obstructive pulmonary disease, unspecified (principal); F17.210 Nicotine dependence, cigarettes, uncomplicated; Z12.2 Encounter for screening for malignant neoplasm of respiratory organs; F41.9 Anxiety disorder, unspecified | CPT/HCPCS: 36415; 82785; 86003; 99204 ==

== ENCOUNTER 2023-01-01 08:04 | Outpatient (CLI) | payer MEDICAID, SELFPAY ==
--- NOTE | 2023-01-01 08:30 | CT_ITS ---
WS: [id number] LDCT LUNG CANCER SCREENING HISTORY: Cancer Screen TECHNIQUE: Axial imaging performed from the apices to 1 cm below the costophrenic angles. Coronal and sagittal reformats are submitted with axial MIP series. All CT scans at [facility] use at least one of these dose optimization techniques: automated exposure control; mA and/or kV adjustment per patient size (includes targeted exams where dose is matched to clinical indication); or iterativ e reconstruction. DLP: 60.10 mGy.cm DIvol: Mean CTDIvol: 1.30 (mGy) COMPARISON: 10/29/2016 Diagnostic quality: Satisfactory Lungs: Centrilobular emphysema. Noncalcified 4 mm nodule periphery LEFT upper lobe was also present i 2016 but better visualized on today's imaging exam. No mass. No endobronchial lesions. Heart: Normal size heart with no pericardial effusion.. Other findings: Mild ectasia thoracic aorta. Small hiatal hernia. No adrenal mass. IMPRESSION: CT/CT lung screening [id number] LUNG-RADS: 2-Benign Appearance or Behavior FOLLOW UP: 12 Month: Continue annual screening with LDCT OTHER FINDINGS (S MODIFIER): None.
== END 2023-01-01 08:05 | disposition home or self-care (01) ==
LOC: RAD 08:04
PROVIDERS: PCP Family Medicine; Visit Provider Internal Medicine Pulmonary Disease
DX: Z12.2 Encounter for screening for malignant neoplasm of respiratory organs (principal); F17.210 Nicotine dependence, cigarettes, uncomplicated
CPT/HCPCS: 71271

== ENCOUNTER → 2023-04-29 14:22 | Outpatient (BNVA) | payer MEDICAID, SELFPAY | PROVIDERS: PCP Family Medicine; Visit Provider Nurse Practitioner Family | DX: E78.2 Mixed hyperlipidemia (principal); R07.9 Chest pain, unspecified; I10 Essential (primary) hypertension; R60.9 Edema, unspecified; F41.9 Anxiety disorder, unspecified; F32.A Depression, unspecified; M54.9 Dorsalgia, unspecified; G89.29 Other chronic pain; M54.2 Cervicalgia; R20.2 Paresthesia of skin; R10.11 Right upper quadrant pain; K46.9 Unspecified abdominal hernia without obstruction or gangrene; R22.1 Localized swelling, mass and lump, neck; M19.90 Unspecified osteoarthritis, unspecified site; G25.81 Restless legs syndrome; G62.9 Polyneuropathy, unspecified; M79.7 Fibromyalgia; E03.9 Hypothyroidism, unspecified; Z78.0 Asymptomatic menopausal state; R41.3 Other amnesia; J44.9 Chronic obstructive pulmonary disease, unspecified | CPT/HCPCS: 80053; 80061; 82306; 82607; 82746; 84443; 85025 ==

== ENCOUNTER 2023-05-27 11:21 | Outpatient (CLI) | payer MEDICAID, SELFPAY ==
--- NOTE | 2023-05-27 11:45 | MR_ITS ---
WS: [id number] MRI THORACIC SPINE noncontrast HISTORY: back pain COMPARISON: 07/13/2016 TECHNIQUE: Multiplanar sequences are performed in sagittal and axial planes. Normal thoracic alignment. New Schmorl's node at T10. No fracture or marrow edema. Signal within the cord is normal. T1-2: Normal. T2-3: Normal. T3-4: Mild bilateral facet arthritis. No stenosis. T4-5: Normal. T5-6: Normal. T6-7: Mild bilateral facet arthritis. T7-8: Small LEFT subarticular disc protrusion. Very slight effacement of the LEFT lateral thecal sac. The disc protrusion is decreased in size since 2017. T8-9: Small bilobed disc protrusions, RIGHT greater than LEFT and facet arthritis. Mild foraminal gerry nosis. T9-10: Moderate bilateral facet arthritis. Mild foraminal stenosis. T10-11: Moderate bilateral facet joint arthritis and foraminal stenosis. T11-12: Normal. Bilateral renal cysts. IMPRESSION: 1. No high-grade central or foraminal stenosis. 2. No fracture or marrow edema. 3. T7-8: LEFT subarticular disc protrusion has decreased in size since 2017. 4. T8-9: Small bilobed disc protrusions with only mild foraminal stenosis. 5. Facet joint arthritis at T9-10 and T11-12 with mild foraminal stenosis.
--- NOTE | 2023-05-27 13:00 | MR_ITS ---
WS: [id number] MRI CERVICAL SPINE NONCONTRAST HISTORY: neck and back pain, numbness and tingling bliateral hands. COMPARISON: 07/13/2016 Technique: Multiplanar, multisequence noncontrast imaging of the cervical spine. Straightening and reversal the normal cervical lordosis. Reversal centered at C5-6 and has progressed since 2017. Signal within the cervical cord is normal. Visualized posterior fossa is unremarkable. Craniocervical junction, C1 and C2 relationship, odontoid process and soft tissues are normal. C2-C3: Normal. C3-C4: Normal. C4-C5: Mild disc bulging and facet arthritis. No stenosis. C5-C6: Asymmetric disc osteophyte complex to the LEFT. Moderate to severe LEFT foraminal stenosis. Di sc protrusion has not significantly progressed. Facet joint arthritis. C6-C7: Mild annular disc bulging, osteophytic ridging and a central disc protrusion. Bilateral facet joint arthritis. Mild central stenosis. There is slight contact on the ventral cervical cord. Mild RI GHT and moderate LEFT foraminal stenosis. C7-T1: Mild osteophytic ridging. No stenosis. Paraspinal soft tissue are normal. IMPRESSION: 1. Slight progression of this straightening and reversal of the normal cervical lordosis centered at C5-6. 2. No significant progression of central or foraminal stenosis. 3. LEFT disc osteophyte complex at C5-6 causing moderate to severe LEFT foraminal stenosis. 4. Mild central and RIGHT foraminal stenosis and moderate LEFT foraminal stenosis at C6-7, unchanged .
== END 2023-05-27 11:22 | disposition home or self-care (01) ==
LOC: RAD 11:21
PROVIDERS: PCP Family Medicine; Visit Provider Nurse Practitioner Family
DX: M48.02 Spinal stenosis, cervical region (principal); M25.78 Osteophyte, vertebrae; M51.24 Other intervertebral disc displacement, thoracic region; M48.04 Spinal stenosis, thoracic region; M47.814 Spondylosis without myelopathy or radiculopathy, thoracic region; R20.2 Paresthesia of skin; M54.9 Dorsalgia, unspecified; G89.29 Other chronic pain
CPT/HCPCS: 72141; 72146

== ENCOUNTER → 2023-08-28 11:49 | Outpatient (BNVA) | payer MEDICAID, SELFPAY | PROVIDERS: PCP Family Medicine; Visit Provider Nurse Practitioner Family | DX: R34 Anuria and oliguria (principal); R10.9 Unspecified abdominal pain; E03.9 Hypothyroidism, unspecified; I10 Essential (primary) hypertension; F41.9 Anxiety disorder, unspecified; F32.A Depression, unspecified; E78.2 Mixed hyperlipidemia; E55.9 Vitamin D deficiency, unspecified | CPT/HCPCS: 80053; 80061; 82043; 82306; 83880; 84443; 85025 ==

== ENCOUNTER → 2023-09-18 14:02 | Outpatient (CLI) | payer MEDICAID, SELFPAY ==
[2023-09-18] MEDS: iohexol 350 mg/mL 500 mL Btl (per mL) PO (14:42)
--- NOTE | 2023-09-18 15:30 | CTR_ITS ---
PROCEDURE INFORMATION: Exam: CT Abdomen And Pelvis With Contrast Exam date and time: 09/18/2023 3:15 PM Age: 63 years old Clinical indication: Abdominal pain; Localized; Prior surgery; Surgery date: 6+ months; Surgery type: Small intestine; Patient HX: Lower pelvic pain x 6 months, bloating, ; additional info: Abd pain, decreased urination, ill feeling TECHNIQUE: Imaging protocol: Computed tomography of the abdomen and pelvis with contrast. Radiation optimization: All CT scans at this facility use at least one of these dose optimization techniques: automated exposure control; mA and/or kV adjustment per patient size (includes targeted exams where dose is matched to clinical indication); or iterative reconstruction. Contrast material: OMNI 350; Contrast volume: 100 ml; Contrast route: INTRAVENOUS (IV); COMPARISON: CT abdomen pelvis w con* [id number] 11/21/2018 6:22 AM RADIATION DOSE METRICS: Total DLP (mGy-cm): 454.59 FINDINGS: Lungs: Lung bases are clear as visualized. Liver: Normal. No mass. Gallbladder and biliary ducts: Normal. No calcified stones. No ductal dilation. Pancreas: Normal. No ductal dilation. Spleen: Normal. No splenomegaly. Adrenal glands: Normal. No mass. Kidneys and ureters: There are benign-appearing renal cysts bilaterally. No renal calculi are identified. No hydronephrosis is noted. Stomach and bowel: No dilated large or small bowel is appreciated. No bowel wall thickening is identified. There is a moderate amount of stool within the colon. There is a suture line involving the rectosigmoid junction. Appendix: No evidence of appendicitis. Intraperitoneal space: Unremarkable. No free air. No significant fluid collection. Vasculature: The aorta is normal in caliber. There is calcified plaque involving the aorta and its branch vessels. Lymph nodes: Unremarkable. No enlarged lymph nodes. Urinary bladder: Unremarkable as visualized. Reproductive: Unremarkable as visualized. Bones/joints: Unremarkable. No acute fracture. Soft tissues: Unremarkable. CT/CT abdomen pelvis w con* [id number] IMPRESSION: 1. Fecal stasis. COMMENTS: Consistent with the [employer]'s Incidental Findings Committee white paper (J Am Grzegorz Radiol 2018): Any incidental renal lesion less than 1 cm or classified as too small to characterize, or any incidental cystic renal lesion characterized as simple-appearing, is likely benign. No follow-up imaging is recommended for these lesions per consensus recommendations based on imaging criteria.
[2023-09-18] MEDS: iohexol 350 mg/mL 500 mL Btl (per mL) IV (15:37)
== END | disposition home or self-care (01) ==
LOC: RAD 14:02
PROVIDERS: PCP Family Medicine; Visit Provider Nurse Practitioner Family
DX: R10.84 Generalized abdominal pain (principal); R34 Anuria and oliguria; K56.41 Fecal impaction; Q61.02 Congenital multiple renal cysts; I70.0 Atherosclerosis of aorta
CPT/HCPCS: 74177; Q9967

== ENCOUNTER 2024-04-17 23:10 | Inpatient (IN) | payer MEDICAID, SELFPAY ==
--- NOTE | 2024-04-17 23:23 | XRR_ITS ---
PROCEDURE INFORMATION: Exam: XR Chest Exam date and time: 04/17/2024 11:51 PM Age: 63 years old Clinical indication: Device placement; Ett placement (vent status); Check S/P ett and og placement. ; Additional info: Acute respiratory failure TECHNIQUE: Imaging protocol: Radiologic exam of the chest. Views: 1 view. COMPARISON: [place] [id number] 04/17/2024 11:31 PM FINDINGS: Tubes, catheters and devices: Retraction of ETT with tip now proximally 3 cm above the adriel. Lungs: Unremarkable. No consolidation. Pleural spaces: Unremarkable. No pleural effusion. No pneumothorax. Heart/Mediastinum: Unremarkable. No cardiomegaly. Bones/joints: Unremarkable. XR/XR chest 1V portable [id number] IMPRESSION: Retraction of ETT with tip now proximally 3 cm above the adriel.
--- NOTE | 2024-04-17 23:23 | CTR_ITS ---
PROCEDURE INFORMATION: Exam: CT Head Without Contrast Exam date and time: 04/17/2024 11:28 PM Age: 63 years old Clinical indication: Altered mental status/memory loss and other: Seizure; EMS arrival for seizure. Intubated upon arrival due to loss of airway. ; Additional info: Unresponsive, seizure TECHNIQUE: Imaging protocol: Computed tomography of the head without contrast. Radiation optimization: All CT scans at this facility use at least one of these dose optimization techniques: automated exposure control; mA and/or kV adjustment per patient size (includes targeted exams where dose is matched to clinical indication); or iterative reconstruction. COMPARISON: CT angio headneck* [id number] 01/18/2021 7:03 PM RADIATION DOSE METRICS: Total DLP (mGy-cm): 979.88 FINDINGS: Brain: Normal. No hemorrhage. Unremarkable white matter. No mass effect. Cerebral ventricles: No ventriculomegaly. Paranasal sinuses: Visualized sinuses are unremarkable. No fluid levels. Mastoid air cells: Visualized mastoid air cells are well aerated. Bones: Unremarkable. No acute fracture. Soft tissues: Unremarkable. CT/CT head wo con* [id number] IMPRESSION: No acute intracranial abnormality.
--- NOTE | 2024-04-17 23:29 | CTR_ITS ---
PROCEDURE INFORMATION: Exam: CT Chest Without Contrast; Diagnostic Exam date and time: 04/17/2024 11:31 PM Age: 63 years old Clinical indication: Other: Resp failure/ seizure; Prior surgery; Surgery date: 6+ months; Surgery type: Small bowel; EMS arrival for seizure activity. Intubated upon arrival due to loss of airway. History of copd. ; Additional info: Acute respiratory failure, unresponsive, seizure TECHNIQUE: Imaging protocol: Diagnostic computed tomography of the chest without contrast. Radiation optimization: All CT scans at this facility use at least one of these dose optimization techniques: automated exposure control; mA and/or kV adjustment per patient size (includes targeted exams where dose is matched to clinical indication); or iterative reconstruction. COMPARISON: CT lung screening [id number] 01/01/2023 8:23 AM RADIATION DOSE METRICS: Total DLP (mGy-cm): 922.08 FINDINGS: Tubes, catheters and devices: There is an ET tube with tip in the right mainstem bronchus. Retraction by 6 cm recommended. There is volume loss of the left lung and right upper lobe from right mainstem bronchus intubation. Lungs: Unremarkable. No consolidation. No masses. Pleural spaces: Unremarkable. No pneumothorax. No pleural effusion. Heart: Unremarkable. No cardiomegaly. No pericardial effusion. Lymph nodes: Unremarkable. No enlarged lymph nodes. Vasculature: Scattered calcific plaque involves the thoracic aorta. No definitive coronary artery calcification identified. Diaphragm: Small hiatal hernia. Bones/joints: Unremarkable. No acute fracture. Soft tissues: Unremarkable. PROCEDURE INFORMATION: Exam: CT Abdomen And Pelvis Without Contrast Exam date and time: 04/17/2024 11:31 PM Age: 63 years old Clinical indication: Other: Resp failure/ seizure; Prior surgery; Surgery date: 6+ months; Surgery type: Small bowel; EMS arrival for seizure activity. Intubated upon arrival due to loss of airway. History of copd. ; Additional info: Acute respiratory failure, unresponsive, seizure TECHNIQUE: Imaging protocol: Computed tomography of the abdomen and pelvis without contrast. Radiation optimization: All CT scans at this facility use at least one of these dose optimization techniques: automated exposure control; mA and/or kV adjustment per patient size (includes targeted exams where dose is matched to clinical indication); or iterative reconstruction. COMPARISON: CT abdomen pelvis w con* [id number] 09/18/2023 3:15 PM RADIATION DOSE METRICS: Total DLP (mGy-cm): 922.08 FINDINGS: Liver: Normal. No mass. Gallbladder and biliary ducts: Normal. No calcified stones. No ductal dilation. Pancreas: Normal. No ductal dilation. Spleen: Normal. No splenomegaly. Adrenal glands: Normal. No mass. Kidneys and ureters: Normal. No hydronephrosis. Stomach and bowel: Postoperative changes from sigmoidectomy with anastomosis. No definitive inflammatory change identified involving the GI tract. No signs of bowel obstruction. Appendix: No evidence of appendicitis. Intraperitoneal space: Unremarkable. No free air. No significant fluid collection. Vasculature: Scattered calcific plaque involves the abdominal aorta. The abdominal aorta is free of aneurysm. Lymph nodes: Unremarkable. No enlarged lymph nodes. Urinary bladder: Unremarkable as visualized. Reproductive: Unremarkable as visualized. Bones/joints: Mild degenerative changes involve the spine. Soft tissues: Unremarkable. Other findings: Image quality degraded by motion artifact. CT/[place] [id number] IMPRESSION: 1. Right mainstem bronchus intubation with resultant volume loss of the left lung and right upper lobe. The right lower lobe and right middle lobe are hyperinflated. 2. Atherosclerosis. 3. Image quality degraded by respiratory motion. IMPRESSION: Image quality is severely degraded by respiratory motion. No definitive acute abnormality. COMMENT: THIS REPORT CONTAINS FINDINGS THAT MAY BE CRITICAL TO PATIENT CARE. The exam findings were verbally communicated by me to Ruel Resendez via telephone conference at 11:57 PM UNIVERSITY CONTROLLER on 04/17/2024. The findings were acknowledged and understood.
[2024-04-17] MEDS: propofol 1,000 MG/100 ML INJ 2.72 MG IV (23:40)
--- NOTE | 2024-04-17 23:43 | ED_ITS ---
HPI - General Adult 2 General: Chief complaint: Neuro Symptoms/Deficit Stated complaint: SEIZURE Time Seen by Provider: 04/17/24 23:23 Source: EMS Mode of arrival: EMS Limitations: altered mental status History of Present Illness: Patient brought in by EMS due to unresponsiveness. Right before entering the hospital parking lot patient began seizing. Patient arrived in the ER still seizing. Patient was taken to room immediately and was having sonorous respirations and unable to keep her airway clear. Respiratory was called. Patient was intubated without difficulty. Patient was given 2 mg Ativan IV, intubated with etomidate and succinylcholine, placed on propofol and fentanyl drip. Was taken immediately to CT. No other information is known at this time. Related Data Home Medications ?Medication ?Instructions ?Recorded ?Confirmed ipratropium bromide 0.02 % 2.5 ml inhalation BID PRN 0 09/14/22 10/31/23 solution for inhalation dextroamphetamine sulfate 10 mg 20 mg PO TID 04/12/23 10/31/23 tablet (Zenzedi) gabapentin 800 mg tablet 800 mg PO .COMPLEX 10/31/23 Previous Rx's ?Medication ?Instructions ?Recorded clonidine HCl 0.1 mg tablet 0.1 mg PO TID HTN #90 tabs 04/12/23 lidocaine 5 % topical patch 2 patch topical DAILY #30 ea 04/29/23 (Lidoderm) acetaminophen 650 mg See Rx Instructions PO Q8H P RN 06/25/23 tablet,extended release (Tylenol pain #180 tabs Arthritis Pain) Ventolin HFA 90 mcg/actuation 2 puff inhalation Q6H MI N 08/28/23 aerosol inhaler (albuterol sulfate) shortness of breat h or wheezing #18 grams dexlansoprazole 60 mg 60 mg PO DAILY 90 days #90 c aps 08/28/23 capsule,biphase delayed release (Dexilant) docusate sodium 250 mg capsule 250 mg PO DAILY PRN con stipation 08/28/23 (DSS) 90 days #90 caps levocetirizine 5 mg tablet (Xyzal) 5 mg PO .QHS #90 ta bs 08/28/23 levothyroxine 200 mcg capsule 200 mcg PO DAILY 90 days #90 caps 08/28/23 levothyroxine 50 mcg capsule 50 mcg PO DAILY 90 days # 90 caps 08/28/23 ondansetron 4 mg disintegrating 4 mg PO Q6H PRN nausea and 08/28/23 tablet vomiting #60 tabs ropinirole 5 mg tablet 5 mg PO DAILY 90 days #90 ta bs 08/28/23 venlafaxine 75 mg capsule,extended 75 mg PO BID 30 day s #60 caps 08/28/23 release 24 hr alpha lipoic acid 600 mg capsule 600 mg PO TID 30 days #90 caps 09/30/23 amitriptyline 50 mg tablet See Rx Instructions .Route 09/30/23 .COMPLEX #30 tabs atorvastatin 20 mg tablet 20 mg PO DAILY 30 days #30 t abs 09/30/23 benzonatate 100 mg capsule 100 mg PO TID PRN cough #90 caps 09/30/23 carvedilol 12.5 mg tablet 12.5 mg PO BID 30 days #60 t abs 09/30/23 cholecalciferol (vitamin D3) 50 50 mcg PO DAILY 90 day s #90 caps 09/30/23 mcg (2,000 unit) capsule hydrochlorothiazide 25 mg tablet 25 mg PO QAM 30 days #30 tabs 09/30/23 lisinopril 10 mg tablet 10 mg PO DAILY 30 days #30 t abs 09/30/23 meloxicam 15 mg tablet 15 mg PO DAILY 30 days #30 t abs 09/30/23 fluticasone 250 mcg-salmeterol 50 1 inh inhalation Q12 H #60 ea 10/30/23 mcg/dose blistr powdr for inhalation (Advair Diskus) tiotropium bromide 18 mcg capsule 1 cap inhalation AYESHA LY #30 10/30/23 with inhalation device (Spiriva inhalations with HandiHaler) tramadol 50 mg tablet 50 mg PO TID PRN pain 30 day s #90 10/31/23 tabs Allergies Allergy/AdvReac Type Severity Reaction Status Date / Time egg Allergy Severe ADR-Muscle Verified 01/21/24 11:39 Pain cefuroxime (From Zinacef) Allergy ALGY-Redness Verified 10/31/23 14:14 of Skin ciprofloxacin Allergy ALGY-Redness Verified 10/31/23 14:14 of Skin povidone-iodine (From Allergy ALGY-Rash Verified 10/31/23 14:14 Betadine) soap (From Betadine) Allergy ALGY-Rash Verified 10/31/23 14:14 Review of Systems 2 General: Reports: ROS unobtainable due to endotracheal tube and ROS unobtainable due to mental status PFSH ED 2 PFSH: Medical History (Updated 04/18/24 @ 01:31 by Ruel Resendez DO) Chronic migraine without aura, intractable, with status migrainosus PRES (posterior reversible encephalopathy syndrome) Narcolepsy and cataplexy Anxiety and depression Surgical History H/O tubal ligation Family History Father Cancer Stroke Mother Clotting disorder Lung disease Grandfather Diabetes Grandmother Diabetes Son Suicide Denies family history of CAD (coronary artery disease) Dementia Hyperlipidemia Psychiatric illness Chronic kidney disease (CKD) Anesthesia complication Bleeding disorder Family history of premature coronary artery disease Hypertension Social History Smoking and tobacco/nicotine status: never used tobacco/nicotine Alcohol intake: never Substance/Drug Use: never Physical Exam 2 Const: OTHER: Patient unresponsive, actively seizing, sonorous respirations HENMT: COMMON NORMALS: normocephalic, atraumatic, external ears normal, Normal nasal mucous membranes and turbinates present, moist oral mucous membranes and oropharynx normal HEAD & SCALP: normocephalic and atraumatic NOSE: Normal nasal mucous membranes and turbinates present EXTERNAL EAR: Yes external ears normal Neck/C-Spine: COMMON NORMALS: no JVD Chest: COMMONS NORMALS: normal inspection of the chest and normal palpation of entire chest wall Resp: OTHER: Sonorous respirations unable to control her secretions and control her airway, diffuse rhonchi throughout worse in the left lung Cardio: COMMON NORMALS: no JVD, regular rate, regular rhythm, S1 normal heart sound present, S2 normal heart sound present, No gallops present (Cardio), No clicks present (Cardio), No murmurs present (Cardio) and No rub (Cardio) R ATE: regular rate RHYTHM: regular rhythm HEART SOUNDS: S1 normal heart sound present and S2 normal heart sound present GI: COMMON NORMALS: Normal to inspection, nondistended, normoactive bowel sounds present, Soft to palpation, non-tender, No hepatosplenomegaly present and no masses PALPATION: Yes Soft to palpation and Yes No hepatosplenomegaly present Procedures Intubation Time out performed: Yes sedative: Etomidate Mg Given: 20 paralytic: Succinylcholine Mg Given: 100 Laryngoscope: fiber optic video scope ET Tube Size: 8 Tube Secured Depth (cm): 22 Tube Secured Location: lips Tube Placement Confirmation: visualized tube passing through cords, equal breath sounds bilaterally and no breath sounds over epigastrium Patient Tolerated Procedure: well and no complications Course 2 Vital Signs: Vital signs: Vital Signs Pulse Rate 111 H 04/17/24 23:46 Respiratory Rate 18 04/18/24 00:19 Blood Pressure 173/93 04/17/24 23:46 Pulse Oximetry 96 04/17/24 23:46 Oxygen Delivery Me thod Ambu-Bag 04/17/24 23:46 Fraction of Inspir ed Oxygen 100 04/18/24 00:19 MDM - General Adult Medical Decision Making Patient was brought in by EMS actively seizing, patient cannot keep her airway clear she is having sonorous respirations and cannot control her secretions. She is intubated, lab work was started she was taken to CT, CT of the head chest abdomen pelvis essentially benign. ET tube was pulled back to an appropriate length. OG tube was placed Silva was placed, lab work revealed a white count of 13.1, ABG showed pH 6.9, pCO2 of 66, pO2 of 254, bicarb of 13.7, BUN/creatinine 24 1.4, lactic acid 20.9, magnesium 2.9, urinalysis urine drug screen pending, patient was given 2 A of bicarb IV push and started on a bicarb drip Dr. Smiley was consulted notified lab work and CTs x-rays, patient be placed in the ICU for further evaluation treatment. Patient was given sepsis bolus, started on propofol and fentanyl, and given Levaquin. Medical Records I reviewed the patient's medical records. Lab Data I reviewed the patient's lab results. 04/18/24 00:00 04/18/24 00:00 Radiology Impressions Chest X-Ray 04/17/24 23:23 IMPRESSION: Retraction of ETT with tip now proximally 3 cm above the adriel. Head CT 04/17/24 23:23 IMPRESSION: No acute intracranial abnormality. Chest/Abdomen/Pelvis CT 04/17/24 23:29 IMPRESSION: 1. Right mainstem bronchus intubation with resultant volume loss of the left lung and right upper lobe. The right lower lobe and right middle lobe are hyperinflated. 2. Atherosclerosis. 3. Image quality degraded by respiratory motion. IMPRESSION: Image quality is severely degraded by respiratory motion. No definitive acute abnormality. COMMENT: THIS REPORT CONTAINS FINDINGS THAT MAY BE CRITICAL TO PATIENT CARE. The exam findings were verbally communicated by me to Ruel Resendez via telephone conference at 11:57 PM SPRAY UNIT FEEDER on 04/17/2024. The findings were acknowledged and understood. Laboratory Results WBC 13.19 10^3/uL (3.29-11.43) H 04/18/24 00:00 RBC 4.90 10^6/uL (3.85-5.65) 04/18/24 00:00 Hgb 15.00 g/dL (11.27-16.99) 04/18/24 00:00 Hct 50.8 % (36-47) H 04/18/24 00:00 MCV 103.7 fl (85-98) H 04/18/24 00:00 MCH 30.6 pg (27-33) 04/18/24 00:00 MCHC 29.5 g/dL (30-55) L 04/18/24 00:00 RDW 14.1 % (12.1-15.1) 04/18/24 00:00 Plt Count 420 10^3/cmm (157-399) H 04/18/24 00:00 MPV 10.1 fL (7.4-10.4) 04/18/24 00:00 Neut % (Auto) 60.6 % 04/18/24 00:00 Lymph % (Auto) 23.2 % 04/18/24 00:00 [place] % (Auto) 10.5 % 04/18/24 00:00 Eos % (Auto) 2.2 % 04/18/24 00:00 Baso % (Auto) 1.2 % 04/18/24 00:00 Neut # (Auto) 8.00 10^3/uL (1.8-7.7) H 04/18/24 00:00 Lymph # (Auto) 3.1 10^3/uL (0.8-4.8) 04/18/24 00:00 [place] # (Auto) 1.4 10^3/uL (0.2-0.9) H 04/18/24 00:00 Eos # (Auto) 0.3 10^3/uL (0.0-0.8) 04/18/24 00:00 Baso # (Auto) 0.2 10^3/uL (0.0-0.1) H 04/18/24 00:00 Nucleated RBC % (auto) 0 % 04/18/24 00:00 Nucleated RBCs # 0.0 /100WBC 04/18/24 00:00 PT 14.00 SECONDS (12.1-14.9) 04/18/24 00:00 INR 1.01 (0.8-1.2) 04/18/24 00:00 Specimen Type Arterial 04/17/24 23:45 Sample Site Radial, right 04/17/24 23:45 ABG pH 6.92 (7.35-7.45) L* 04/17/24 23:45 ABG pCO2 66.6 mmHg (35-45) H* 04/17/24 23:45 ABG pO2 254.0 mmHg (80.0-100.0) H 04/17/24 23:45 ABG PO2/FiO2 Ratio 254 04/17/24 23:45 ABG HCO3 13.7 mmol/L (22-26) L 04/17/24 23:45 ABG O2 Saturation 98.7 04/17/24 23:45 ABG Base Excess -19.9 mmol/L (-2.0-2.0) L 04/17/24 23:45 John Test Pos 04/17/24 23:45 A-a O2 Gradient 48.9 mmHg (5-10) H 04/17/24 23:45 Hematocrit 47.8 % (37-47) H 04/17/24 23:45 Hgb O2 Saturation 96.6 % (95-100) 04/17/24 23:45 Carboxyhemoglobin 1.5 %THgb (0.4-20.1) 04/17/24 23:45 Methemoglobin 0.6 % (0.4-1.5) 04/17/24 23:45 Total Hemoglobin 15.6 g/dL (12-16) 04/17/24 23:45 Sodium 139.0 mmol/L (131-143) 04/17/24 23:45 Potassium 4.4 mmol/L (3.5-5.0) 04/17/24 23:45 Glucose 322.0 mg/dL (70-115) H 04/17/24 23:45 Ionized Calcium 1.3 mmol/L (1.1-1.4) 04/17/24 23:45 O2 Delivery Device Ambu 04/17/24 23:45 FiO2 100.0 % 04/17/24 23:45 Quality Engineer Medical Device ID [id number] 04/17/24 23:45 Sodium 138 mmol/L (136-145) 04/18/24 00:00 Potassium 4.2 mmol/L (3.5-5.1) 04/18/24 00:00 Chloride 92 mmol/L (98-107) L 04/18/24 00:00 Carbon Dioxide 15 mmol/L (22-29) L 04/18/24 00:00 Anion Gap 35.2 (5-19) H 04/18/24 00:00 BUN 24 mg/dL (8-23) H 04/18/24 00:00 Creatinine 1.4 mg/dL (0.5-0.9) H 04/18/24 00:00 GFR Calculation 38.1 mL/min (90-130) L 04/18/24 00:00 Glucose 380 mg/dL (65-115) H 04/18/24 00:00 Calculated Osmolality 306 mOsm/kg (285-295) H 04/18/24 00:00 Lactic Acid 20.9 mmol/L (0.5-2.2) H* 04/18/24 00:00 Calcium 10.4 mg/dL (8.5-10.5) 04/18/24 00:00 Magnesium 2.9 mg/dL (1.7-2.3) H 04/18/24 00:00 Total Bilirubin 0.7 mg/dL (0.15-1.2) 04/18/24 00:00 AST 49 U/L (0-32) H 04/18/24 00:00 ALT 75 U/L (0-33) H 04/18/24 00:00 Alkaline Phosphatase 149 U/L (35-105) H 04/18/24 00:00 Creatine Kinase 151 U/L (26-192) 04/18/24 00:00 Troponin T Baseline 22 ng/L (0-10) H 04/18/24 00:00 C-Reactive Protein 6.5 mg/L (0.0-4.9) H 04/18/24 00:00 NT-Pro-B Natriuret Pep 1692 pg/mL (0-125) H 04/18/24 00:00 Total Protein 8.5 g/dL (6.6-8.7) 04/18/24 00:00 Albumin 4.7 g/dL (3.5-5.2) 04/18/24 00:00 Globulin 3.8 g/dL (1.3-4.6) 04/18/24 00:00 Procalcitonin 0.07 ng/mL (0-0.5) 04/18/24 00:00 Salicylates < 0.3 mg/dL (3-10) L 04/18/24 00:00 Acetaminophen < 5.0 ug/mL (10-30) L 04/18/24 00:00 Ethyl Alcohol < 10 mg/dL (0-10) 04/18/24 00:00 All radiology interpretation(s) finalized by discharge Critical Care Time 2 Critical Care Time: Critical Care Time: Yes Total Critical Care Time: 30 Attestation: The patient was emergently evaluated this patient's presentation and case had a high probability of a clinically significant, sudden, or life-threatening deterioration of the patient's initial critical presentation or condition which required my full and direct attention, intervention and personal management. Discharge Plan Discharge Patient Disposition: Admitted As Inpatient Clinical Impression: Acute respiratory failure with hypoxia and hypercapnia, Seizure, Acidosis, metabolic, with respiratory acidosis Condition: Stable Coding Level of Care Code ED Team Assembler for Nanette Little
[2024-04-17 23:46] VITALS: BP 173/93; PULSE 111; RESP 30; O2SAT 96
--- NOTE | 2024-04-17 23:46 | ECG_ITS ---
[email or web address] Test Date: 2024-04-18 Pat Name: Kamala Srivastava Department: Room: ICU11 Gender: Female Infrastructure Architect: : [id number] Requested By: Ruel Resendez Order Number: [id number] Reading MD: KARAN TERRY Measurements Intervals [place] Rate: 68 P: 66 HI: 165 QRS: -66 QRSD: 106 T: -67 QT: 428 QTc: 458 Interpretive Statements SINUS RHYTHM PATTERN CONSISTENT WITH PULMONARY DISEASE LEFT ANTERIOR FASCICULAR BLOCK [QRS AXIS <= -45, QR IN I, RS IN II] SEPTAL MYOCARDIAL INFARCTION , OF INDETERMINATE AGE [40+ ms Q WAVE IN V1/V2] MODERATE T-WAVE ABNORMALITY, CONSIDER ANTEROLATERAL ISCHEMIA [-0.1+ mV T-WAVE IN V3-V6] Compared to ECG 04/18/2024 05:59:06 No significant changes Electronically Signed On 04-19-2024 20:59:50 GEOLOGIST PETROLEUM by KARAN TERRY [email or web address]
[2024-04-17 23:51] LABS: Alveolar-Arterial Oxygen Gradi 48.9 mmHg (5-10); Arterial Blood Gas Hematocrit 47.8 % (37-47); Base Excess ABG -19.9 mmol/L (-2.0-2.0); Blood Gas Allen Test Pos; Blood Gas Sample Site Radial, right; Blood Gas Sample Type Arterial; Carboxyhemoglobin 1.5 %THgb (0.4-20.1); HCO3 ABG 13.7 mmol/L (22-26); HGB O2 Sat 96.6 % (95-100); Ionized Calcium Level - ABG 1.3 mmol/L (1.1-1.4); Methemoglobin 0.6 % (0.4-1.5); Oxygen Device AMBU; Oxygen Saturation ABG 98.7; PO2 FiO2 Ratio Arterial Blood 254; Potassium Level - ABG 4.4 mmol/L (3.5-5.0); Total Hemoglobin 15.6 g/dL (12-16)
[2024-04-17 23:53] LABS: ABG PCO2 66.6 mmHg (35-45); ABG PH Result 6.92 (7.35-7.45)
[2024-04-18] VITALS (91 sets, daily range): BP systolic 79–138; BP diastolic 45–84; PULSE 11–87; RESP 16–30; TEMP 36.3–37.2; O2SAT 85–100
[2024-04-18 00:13] LABS: Basophils # 0.2 10^3/uL (0.0-0.1); Basophils % 1.2 %; Eosinophils # 0.3 10^3/uL (0.0-0.8); Eosinophils % 2.2 %; Hematocrit 50.8 % (36-47); Lymphocytes # 3.1 10^3/uL (0.8-4.8); Lymphocytes % 23.2 %; Mean Corpuscular HGB Conc 29.5 g/dL (30-55); Mean Corpuscular Hemoglobin 30.6 pg (27-33); Mean Corpuscular Volume 103.7 fl (85-98); Mean Platelet Volume 10.1 fL (7.4-10.4); Monocytes # 1.4 10^3/uL (0.2-0.9); Monocytes % 10.5 %; Neutrophils % 60.6 %; Nucleated Red Blood Cells % 0 %; Platelet Count 420 10^3/cmm (157-399); Red Cell Distribution Width 14.1 % (12.1-15.1); White Blood Count 13.19 10^3/uL (3.29-11.43)
[2024-04-18 00:24] LABS: INR 1.01 (0.8-1.2)
[2024-04-18 00:28] LABS: Troponin(5th) Baseline 22 ng/L (0-10)
[2024-04-18 00:36] LABS: Alanine Aminotransferase 75 U/L (0-33); Albumin Level 4.7 g/dL (3.5-5.2); Alkaline Phosphatase 149 U/L (35-105); Anion Gap 35.2 (5-19); Aspartate Amino Transferase 49 U/L (0-32); Blood Urea Nitrogen 24 mg/dL (8-23); C Reactive Protein 6.5 mg/L (0.0-4.9); Calcium 10.4 mg/dL (8.5-10.5); Carbon Dioxide 15 mmol/L (22-29); Chloride 92 mmol/L (98-107); Creatine Phosphokinase 151 U/L (26-192); Creatinine Clr Calc Pharmacy 41.8237; Globulin 3.8 g/dL (1.3-4.6); Glomerular Filtration Rate 38.1 mL/min (90-130); Glucose 380 mg/dL (65-115); Magnesium 2.9 mg/dL (1.7-2.3); Osmolality Calculated 306 mOsm/kg (285-295); Potassium 4.2 mmol/L (3.5-5.1); Sodium 138 mmol/L (136-145); Total Bilirubin 0.7 mg/dL (0.15-1.2); Total Protein 8.5 g/dL (6.6-8.7)
--- NOTE | 2024-04-18 00:37 | PC.NURSE ---
upon arrival, pt noted to be gurgling and not protecting airway. MD performed jaw thrust and intubated. 20 mg etomidate given 2319 100 mg succynlcholine given 2320 these were pulled from RSI box and are charted as reflected in MAR
[2024-04-18 00:42] LABS: Acetaminophen < 5.0 ug/mL (10-30); Alcohol Level < 10 mg/dL (0-10); Salicylate < 0.3 mg/dL (3-10)
[2024-04-18 00:43] LABS: Lactic Sepsis W/Reflex 20.9 mmol/L (0.5-2.2)
[2024-04-18] MEDS: sodium bicarbonate 8.4% 1 mEq/mL 50mL Syr 50 MEQ IVP (00:50)
[2024-04-18] MEDS: sodium bicarbonate 150 MEQ in dextrose 5% 1,000 ML 100 MEQ IV (00:51)
[2024-04-18] MEDS: fentaNYL 1,000 MCG/100 ML BAG 2.5 MCG IV (00:55)
[2024-04-18 00:57] LABS: NT Pro B Type Natriuretic Pept 1692 pg/mL (0-125); Procalcitonin 0.07 ng/mL (0-0.5)
[2024-04-18] MEDS: LORazepam 2 mg/mL INJ 1 mL IVP (01:00)
[2024-04-18 01:15] LABS: Influenza A NEGATIVE (Negative); Influenza B NEGATIVE (Negative); Respiratory Syncytial Virus Ce NEGATIVE (Negative); SARS-CoV-2 PCR NEGATIVE (Negative)
--- NOTE | 2024-04-18 01:24 | P.HP_ITS ---
Providers/Chief Complaint 2 Primary Care Provider: Diogenes Rees MD Chief Complaint: SEIZURE History of Present Illness Kamala Srivastava is a 63 year old female with history of COPD, A-fib, stress-induced cardiomyopathy, has seen Dr. Anand for concerns related to CVA however related to neurological/neuro conversion disorder she was put on propranolol 10 mg twice a day for anxiety and she was diagnosed with chronic migraine without aura present to the hospital with 3 episodes of seizure. is at the bedside, stating that around 9 PM when he was driving his pickup truck she started leaning towards the window, became very quiet, when they reached home she was not able to get up and walk on her own, they had to really help her out to get out and go inside her home once they were inside, she had blank expressions of her face, was not able to talk, they did not notice any focal deficits however she started shaking for about 30 seconds 911 was called, her second episode of seizure was in the ambulance and third was in the ER. She was intubated by the ER physician for airway protection. As per the family patient smokes cigarettes, no use of marijuana, she has very bad fibromyalgia related pain, history of migraine, she does not do any marijuana or drink alcohol daily basis, she does not take any antiepileptic medications. No recent fever as per the family. is stating that she takes Adderall for narcolepsy Review of Systems 2 General: Reports: ROS unobtainable due to mental status Medications/Allergies Home Medications ?Medication ?Instructions ?Recorded ?Confirmed ?Last Taken ?Type ipratropium bromide 0.02 % 2.5 ml inhalation BID PRN 0 09/14/22 10/31/23 Unknown History solution for inhalation clonidine HCl 0.1 mg tablet 0.1 mg PO TID HTN #90 tabs 04/12/23 10/31/23 Unknown Rx dextroamphetamine sulfate 10 mg 20 mg PO TID 04/12/23 10/31/23 Unknown History tablet (Zenzedi) lidocaine 5 % topical patch 2 patch topical DAILY #30 ea 04/29/23 10/31/23 Unknown Rx (Lidoderm) acetaminophen 650 mg See Rx Instructions PO Q8H P RN 06/25/23 10/31/23 Unknown Rx tablet,extended release (Tylenol pain #180 tabs Arthritis Pain) Ventolin HFA 90 mcg/actuation 2 puff inhalation Q6H OH N 08/28/23 10/31/23 Unknown Rx aerosol inhaler (albuterol sulfate) shortness of breat h or wheezing #18 grams dexlansoprazole 60 mg 60 mg PO DAILY 90 days #90 c aps 08/28/23 10/31/23 Unknown Rx capsule,biphase delayed release (Dexilant) docusate sodium 250 mg capsule 250 mg PO DAILY PRN con stipation 08/28/23 10/31/23 Unknown Rx (DSS) 90 days #90 caps levocetirizine 5 mg tablet (Xyzal) 5 mg PO .QHS #90 ta bs 08/28/23 10/31/23 Unknown Rx levothyroxine 200 mcg capsule 200 mcg PO DAILY 90 days #90 caps 08/28/23 10/31/23 Unknown Rx levothyroxine 50 mcg capsule 50 mcg PO DAILY 90 days # 90 caps 08/28/23 10/31/23 Unknown Rx ondansetron 4 mg disintegrating 4 mg PO Q6H PRN nausea and 08/28/23 10/31/23 Unknown Rx tablet vomiting #60 tabs ropinirole 5 mg tablet 5 mg PO DAILY 90 days #90 ta bs 08/28/23 10/31/23 Unknown Rx venlafaxine 75 mg capsule,extended 75 mg PO BID 30 day s #60 caps 08/28/23 10/31/23 Unknown Rx release 24 hr alpha lipoic acid 600 mg capsule 600 mg PO TID 30 days #90 caps 09/30/23 10/31/23 Unknown Rx amitriptyline 50 mg tablet See Rx Instructions .Route 09/30/23 10/31/23 Unknown Rx .COMPLEX #30 tabs atorvastatin 20 mg tablet 20 mg PO DAILY 30 days #30 t abs 09/30/23 10/31/23 Unknown Rx benzonatate 100 mg capsule 100 mg PO TID PRN cough #90 caps 09/30/23 10/31/23 Unknown Rx carvedilol 12.5 mg tablet 12.5 mg PO BID 30 days #60 t abs 09/30/23 10/31/23 Unknown Rx cholecalciferol (vitamin D3) 50 50 mcg PO DAILY 90 day s #90 caps 09/30/23 10/31/23 Unknown Rx mcg (2,000 unit) capsule hydrochlorothiazide 25 mg tablet 25 mg PO QAM 30 days #30 tabs 09/30/23 10/31/23 Unknown Rx lisinopril 10 mg tablet 10 mg PO DAILY 30 days #30 t abs 09/30/23 10/31/23 Unknown Rx meloxicam 15 mg tablet 15 mg PO DAILY 30 days #30 t abs 09/30/23 10/31/23 Unknown Rx fluticasone 250 mcg-salmeterol 50 1 inh inhalation Q12 H #60 ea 10/30/23 10/31/23 Unknown Rx mcg/dose blistr powdr for inhalation (Advair Diskus) tiotropium bromide 18 mcg capsule 1 cap inhalation AYESHA LY #30 10/30/23 10/31/23 Unknown Rx with inhalation device (Spiriva inhalations with HandiHaler) gabapentin 800 mg tablet 800 mg PO .COMPLEX 10/31/23 Unknown History tramadol 50 mg tablet 50 mg PO TID PRN pain 30 day s #90 10/31/23 10/31/23 Unknown Rx tabs Allergies Allergy/AdvReac Type Severity Reaction Status Date / Time egg Allergy Severe ADR-Muscle Verified 01/21/24 11:39 Pain cefuroxime (From Zinacef) Allergy ALGY-Redness Verified 10/31/23 14:14 of Skin ciprofloxacin Allergy ALGY-Redness Verified 10/31/23 14:14 of Skin povidone-iodine (From Allergy ALGY-Rash Verified 10/31/23 14:14 Betadine) soap (From Betadine) Allergy ALGY-Rash Verified 10/31/23 14:14 PFSH Acute 2 PFSH: Medical History (Updated 04/18/24 @ 02:27 by Navid Smiley MD) Chronic migraine without aura, intractable, with status migrainosus PRES (posterior reversible encephalopathy syndrome) Narcolepsy and cataplexy Anxiety and depression Surgical History H/O tubal ligation Family History Father Cancer Stroke Mother Clotting disorder Lung disease Grandfather Diabetes Grandmother Diabetes Son Suicide Denies family history of CAD (coronary artery disease) Dementia Hyperlipidemia Psychiatric illness Chronic kidney disease (CKD) Anesthesia complication Bleeding disorder Family history of premature coronary artery disease Hypertension Social History Smoking and tobacco/nicotine status: never used tobacco/nicotine Alcohol intake: never Substance/Drug Use: never Vitals/I&O/Wt Last Vital Signs Pulse 111 H 04/17/24 23:46 Resp 18 04/18/24 00:19 BP 173/93 04/17/24 23:46 Pulse Ox 96 04/17/24 23:46 O2 Del Method Ambu-Bag 04/17/24 23:46 FiO2 100 04/18/24 00:19 04/17/24 04/17/24 04/18/24 14:59 22:59 06:59 Intake Total 5.897 / 5.897 Balance 5.897 / 5.897 Weight last 48 hrs Weight 90.718 kg Weight 200 g Physical Exam 2 Narrative: Patient is intubated, sedated Euvolemic Abdomen nondistended Lower extremity no edema S1, S2 FiO2 70% PEEP 5, saturating 100% Currently on propofol Neuroexam limited Bilateral assisted breath sounds S1, S2 sinus rhythm No skin ulcers noted No tick bites Urinary Catheter Management: Silva: Cath Placed During This Visit: yes Urinary Catheter Date of Insertion: 04/18/24 Data 04/18/24 00:00 04/18/24 00:00 Micro: Microbiology 04/17/24 00:17 Blood Culture - Preliminary Blood SPECIMEN COLLECTED 04/17/24 00:17 Blood Culture - Preliminary Blood SPECIMEN COLLECTED A&P Assessment and plan (1) Status epilepticus: (2) Acidosis, metabolic, with respiratory acidosis: (3) Anemia: (4) Seizure: (5) Chronic migraine without aura, intractable, with status migrainosus: (6) Asthma-COPD overlap syndrome: (7) Acute respiratory failure with hypoxia and hypercapnia: Plan Status epilepticus Patient had 3 seizures within 2 hours Concern for polypharmacy, patient takes Adderall, medications for her fibromyalgia, amitriptyline, gabapentin She was intubated by the ER physician Currently on propofol I will put her on Keppra She does not take any antibiotics Patient is afebrile Request EKG Mixed respiratory and metabolic acidosis high lactic acid related seizure Repeat ABG in an hour Respiratory failure Patient got intubated for airway protection Wean off propofol in next 8 to 12 hours, plan to extubate after 12 hours if she is able to follow commands CT head unremarkable Afebrile I would keep meningitis in my differentials as well Aspiration pneumonia: Patient is afebrile, we will put her on Zosyn Narcolepsy/fibromyalgia/migraine Patient takes Adderall at home History of hypothyroidism: Continue levothyroxine GI protection: Protonix N.p.o. diet DVT prophylaxis heparin High BNP clinically patient does not look fluid overloaded continue normal saline for now Patient is not diabetic Full code PDMP PDMP Reviewed: Not Reviewed Attestations 2 Medical Necessity Statement*: More than 2 midnights anticipated for management of seizure intubated patient Coding Level of Care Code Critical Care >/= 30 minutes Critical care time (in minutes): 30 The high probability of a clinically significant, sudden or life threatening deterioration, as referenced in this documentation, required my full and direct attention, intervention and personal management. The critical care time shown is in addition to time spent performing any reported separately billable procedures and includes the following: [x] Data and vital sign review and interpretation [x ] Patient assessment, examination and intervention [x] Medication orders and management [x] Patient/Family updates as able [x] Care Coordination and Documentation. Diagnoses Status epilepticus G40.901 Acidosis, metabolic, with respiratory acidosis E87.4 Anemia D64.9 Seizure R56.9 Chronic migraine without aura, intractable, with status migrainosus G43.711 Asthma-COPD overlap syndrome J44.89 Acute respiratory failure with hypoxia and hypercapnia J96.01; J96.02
--- NOTE | 2024-04-18 01:46 | ECG_ITS ---
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1960 Requested By: Ruel Resendez Order Number: [id number] Reading MD: KARAN TERRY Measurements Intervals [place] Rate: 100 P: 74 DC: 144 QRS: -71 QRSD: 101 T: 75 QT: 360 QTc: 465 Interpretive Statements SINUS TACHYCARDIA POSSIBLE LEFT ATRIAL ENLARGEMENT [-0.1mV P-WAVE IN V1/V2] INCOMPLETE RIGHT BUNDLE BRANCH BLOCK [90+ ms QRS DURATION, TERMINAL R IN V1/V2, 40+ ms S IN I/aVL/V4/V5/V6] LEFT ANTERIOR FASCICULAR BLOCK [QRS AXIS <= -45, QR IN I, RS IN II] SEPTAL MYOCARDIAL INFARCTION , PROBABLY OLD [40+ ms Q WAVE IN V1/V2] Compared to ECG 01/18/2021 20:16:16 Sinus rhythm no longer present T-wave abnormality no longer present Possible ischemia no longer present Myocardial infarct finding still present Electronically Signed On 04-19-2024 21:09:33 COPYRIGHT CLERK by KARAN TERRY [email or web address] [id number]
[2024-04-18] MEDS: diphenhydrAMINE 50 mg/mL SDV 1mL 25 MG IVP (01:52)
[2024-04-18 01:53] LABS: Reflex Lactate Order REFLEX LACTIC ORDERD
[2024-04-18] MEDS: piperacillin-tazobactam 3.375 GM in sodium chloride 0.9% (plus) 50 ML IV ×4 (01:53→21:57)
[2024-04-18 02:09] LABS: Vitamin B12 393 pg/mL (232-1245)
[2024-04-18 02:15] LABS: Bilirubin Urine Negative (Negative); Blood Urine 2+ (Negative); Glucose Urine UA Trace (Normal); Ketones Urine Negative (Negative); Leukocyte Esterase Urine Negative (Negative); Nitrate Urine Negative (Negative); Protein Urine 4+ (Negative); Specific Gravity, Urine 1.022 (1.005-1.030); Urine Appearance Cloudy (CLEAR); Urine Color Yellow (Yellow); pH Urine 5.5 (5-7)
[2024-04-18 02:19] LABS: Add Urine Microscopic? YES; Bacteria Urine 1+ /hpf; Hyaline Casts Urine 71.16 /lpf; WBC Urine 0-5 /hpf (0-5)
[2024-04-18 02:20] LABS: Prolactin 85.75 ng/mL (4.8-23.3)
[2024-04-18 02:20] LABS: Troponin 5 2HR 70.23 ng/L (0-10)
[2024-04-18 02:22] LABS: Amphetamines Screen Urine Positive (Negative); Barbiturates Screen Urine Negative (Negative); Benzodiazepines Screen Urine Negative (Negative); Cocaine Screen Urine Negative (Negative); Opiate Screen Urine Negative (Negative); PCP Screen Urine Negative (Negative); THC Screen Urine Positive (Negative)
[2024-04-18 02:26] LABS: Troponin 5 2HR Delta 48.23 ABS# (0-10)
--- NOTE | 2024-04-18 02:30 | USCV_ITS ---
Kamala Srivastava Age: 63 Gender: F : 1960 Exam Date: 04/18/2024 11:37 Ordering Phys: Navid Smiley MD Technologist: Abad Marks Exam Location: [facility] [place] Indication: chf BP: 91 / 53 HR: 61 Rhythm: Sinus Technical Quality: Adequate MEASUREMENTS (Male / Female) Normal Values 2D ECHO LV Diastolic Diameter PLAX 3.8 cm 4.2 - 5.9 / 3.9 - 5.3 cm IVS Diastolic Thickness 1.7 cm 0.6 - 1.0 / 0.6 - 0.9 cm IVS Systolic Thickness 2.0 cm LVPW Diastolic Thickness 2.1 cm 0.6 - 1.0 / 0.6 - 0.9 cm LVPW Systolic Thickness 1.9 cm LVOT Diameter 2.0 cm LV Ejection Fraction 2D Teich 63.2 % LV Ejection Fraction MOD 4C 64.0 % LV Ejection Fraction MOD 2C 69.7 % LV Ejection Fraction 2C AL 68.8 % LA Diameter 3.2 cm RA Systolic Volume 4C AL 27.6 ml RA Systolic Volume 4C MOD 26.8 ml LA Sys Volume AL 31.5 cm cubed LA Sys Volume Index AL 17.6 cm cubed/m squared Aorta at Sinotubular Diameter 2.4 cm IVC Diameter 1.4 cm M-MODE LA Ao Ratio MM 1.3 AV Cusp Separation MM 1.7 cm DOPPLER AV Peak Velocity 155.7 cm/s LVOT Peak Velocity 96.0 cm/s AV Area Cont Eq vti 1.7 cm squared AV Area Cont Eq pk 1.9 cm squared MV Peak Velocity 83.0 cm/s MV Area PHT 3.3 cm squared Mitral E to A Ratio 0.8 TR Peak Velocity 265.0 cm/s TR Peak Gradient 28.1 mmHg TR Mean Velocity 211.0 cm/s TR Mean Gradient 18.9 mmHg TR Velocity Time Integral 82.6 cm PV Peak Velocity 90.7 cm/s RV Ejection Time 0.3 s FINDINGS Left Ventricle Normal left ventricular size, systolic function and wall thickness, with no regional wall motion abnormalities. Left ventricular ejection fraction is estimated at 60 %. Grade II/IV diastolic dysfunction, moderately elevated filling pressures. Right Ventricle The right ventricle is normal in size and function. Right Atrium The right atrium is normal in size. Left Atrium The left atrium is normal in size. Mitral Valve Mildly thickened mitral valve. No mitral valve stenosis. Trace mitral valve regurgitation. Aortic Valve Moderate aortic valve calcification. Mild aortic valve stenosis, mean gradient 4.4 mmHg, ESTRELLITA 1.7 cm squared. Trace aortic valve regurgitation. Tricuspid Valve Trace tricuspid valve regurgitation. Pulmonic Valve Structurally normal pulmonic valve without significant stenosis. There is no pulmonic regurgitation. Pericardium Normal pericardium without effusion. Aorta Normal ascending aorta dimension. IVC The inferior vena cava appears normal. CONCLUSIONS Normal left ventricular size, systolic function and wall thickness, with no regional wall motion abnormalities. Left ventricular ejection fraction is estimated at 60 %. Grade II/IV diastolic dysfunction, moderately elevated filling pressures. Moderate aortic valve calcification. Mild aortic valve stenosis, mean gradient 4.4 mmHg, ESTRELLITA 1.7 cm squared. Trace aortic valve regurgitation. There is no pericardial effusion. Right atrial pressure is around 5 mm of mercury. Navid Delcid MD (Electronically Signed) Final Date: 18 April 2024 17:16 S
[2024-04-18 02:49] LABS: UA Slide Review UA Slide Review Perf
[2024-04-18] MEDS: levETIRAcetam 1,000 MG/100 ML PREMIX 400 MG IV ×2 (02:55→13:34)
[2024-04-18] MEDS: enoxaparin 100 mg/mL Syringe 90 MG SUBCUT (02:55)
[2024-04-18 03:25] LABS: Glucose Point of Care 118 mg/dL (70-110)
[2024-04-18 05:02] LABS: ABG PCO2 48.9 mmHg (35-45); ABG PH Result 7.34 (7.35-7.45); Alveolar-Arterial Oxygen Gradi 35.9 mmHg (5-10); Arterial Blood Gas Hematocrit 49.5 % (37-47); Base Excess ABG -0.3 mmol/L (-2.0-2.0); Blood Gas Allen Test Pos; Blood Gas Operator Identificat JDB; Blood Gas Sample Site Radial, right; Blood Gas Sample Type Arterial; Blood Gas Tidal Volume 0.35; Carboxyhemoglobin 0.7 %THgb (0.4-20.1); HCO3 ABG 26.3 mmol/L (22-26); HGB O2 Sat 97.3 % (95-100); Ionized Calcium Level - ABG 1.1 mmol/L (1.1-1.4); Methemoglobin 1.3 % (0.4-1.5); Oxygen Device VENT; Oxygen Saturation ABG > 99.1; PO2 FiO2 Ratio Arterial Blood 224; Potassium Level - ABG 3.7 mmol/L (3.5-5.0); Total Hemoglobin 16.1 g/dL (12-16)
[2024-04-18] MEDS: levothyroxine 200 mcg Tablet PO (05:21)
[2024-04-18] MEDS: propofol 1,000 MG/100 ML INJ 13.61 MG IV (05:22)
--- NOTE | 2024-04-18 05:46 | ECG_ITS ---
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1960 Requested By: Ruel Resendez Order Number: [id number] Reading MD: KARAN TERRY Measurements Intervals [place] Rate: 71 P: 66 MS: 164 QRS: -71 QRSD: 113 T: -68 QT: 422 QTc: 460 Interpretive Statements SINUS RHYTHM PATTERN CONSISTENT WITH PULMONARY DISEASE LEFT ANTERIOR FASCICULAR BLOCK [QRS AXIS <= -45, QR IN I, RS IN II] SEPTAL MYOCARDIAL INFARCTION , OF INDETERMINATE AGE [40+ ms Q WAVE IN V1/V2] MODERATE T-WAVE ABNORMALITY, CONSIDER LATERAL ISCHEMIA [-0.1+ mV T-WAVE IN I/aVL/V5/V6] MODERATE T-WAVE ABNORMALITY, CONSIDER INFERIOR ISCHEMIA [-0.1+ mV T-WAVE IN II/aVF] Compared to ECG 04/18/2024 01:00:26 T-wave abnormality now present Possible ischemia now present Electronically Signed On 04-19-2024 21:09:24 BOOT TRIMMER by KARAN TERRY [email or web address] [id number]
--- NOTE | 2024-04-18 07:37 | PC.NURSE ---
This nurse called Dr. Ireland about poor peripheral access and inability to draw labs on patient this morning. Multiple failed attempts to obtain IV access after IV with Bicarb failed in left arm. Dr. Ireland said she will place central line for this patient.
[2024-04-18 07:50] LABS: Glucose Point of Care 95 mg/dL (70-110)
[2024-04-18] MEDS: ipratropium-albuterol 3 mL Neb INHALATION ×2 (08:01→13:53)
[2024-04-18] MEDS: propofol 1,000 MG/100 ML INJ 27.22 MG IV (09:03)
[2024-04-18] MEDS: pantoprazole 40 mg SDV IVP ×2 (09:03→18:22)
--- NOTE | 2024-04-18 09:30 | PM.ACPR ---
Procedure/Consent Time out: Time Out Performed: Yes Acute Procedures Central Line Placement: Right Femoral: Time out performed: Yes Patient placed on monitor/pulse ox: Yes MD prep: mask, gown and gloves Central line prep: Povidone-Iodine 1% and Chlorhexidine scrub Local anesthesia used: lidocaine 1% Ultrasound used for placement: Yes Central line lumen inserted: triple Post procedure: sutured in place, good blood return, all ports aspirated, flushed, capped and sterile dressing applied Post procedure x-ray: other (not needed) Patient tolerated procedure: well Complications: none Epistaxis Control: Time out performed: Yes
[2024-04-18] MEDS: norepinephrine 4 MG/250 ML BAG 7.5 MG IV (10:00)
[2024-04-18 10:45] LABS: Basophils # 0.1 10^3/uL (0.0-0.1); Basophils % 0.7 %; Eosinophils # 0.1 10^3/uL (0.0-0.8); Hematocrit 36.8 % (36-47); Lymphocytes # 0.8 10^3/uL (0.8-4.8); Lymphocytes % 7.7 %; Mean Corpuscular HGB Conc 31.8 g/dL (30-55); Mean Corpuscular Volume 97.4 fl (85-98); Mean Platelet Volume 9.7 fL (7.4-10.4); Monocytes % 10.1 %; Neutrophils # 8.05 10^3/uL (1.8-7.7); Neutrophils % 80.1 %; Nucleated Red Blood Cells % 0 %; Platelet Count 277 10^3/cmm (157-399); Red Blood Count 3.78 10^6/uL (3.85-5.65); Red Cell Distribution Width 14.6 % (12.1-15.1); White Blood Count 10.04 10^3/uL (3.29-11.43)
[2024-04-18 11:02] LABS: Lactic Acid level (Lactate) 1.2 mmol/L (0.5-2.2)
[2024-04-18 11:04] LABS: Troponin 5 6HR 53.89 ng/L (0-10)
[2024-04-18 11:10] LABS: Alanine Aminotransferase 42 U/L (0-33); Albumin Level 3.2 g/dL (3.5-5.2); Alkaline Phosphatase 92 U/L (35-105); Anion Gap 12.5 (5-19); Aspartate Amino Transferase 31 U/L (0-32); Blood Urea Nitrogen 25 mg/dL (8-23); C Reactive Protein 10.5 mg/L (0.0-4.9); Calcium 7.5 mg/dL (8.5-10.5); Carbon Dioxide 30 mmol/L (22-29); Chloride 102 mmol/L (98-107); Creatinine Clr Calc Pharmacy 43.6153; Globulin 2.9 g/dL (1.3-4.6); Glomerular Filtration Rate 45.5 mL/min (90-130); Glucose 114 mg/dL (65-115); Magnesium 2.4 mg/dL (1.7-2.3); Osmolality Calculated 297 mOsm/kg (285-295); Phosphorus 4.2 mg/dL (2.5-4.5); Potassium 3.5 mmol/L (3.5-5.1); Sodium 141 mmol/L (136-145); Total Bilirubin 0.4 mg/dL (0.15-1.2); Total Protein 6.1 g/dL (6.6-8.7)
[2024-04-18 11:11] LABS: Troponin 5 6HR Delta 31.89 ng/L (0-12)
[2024-04-18 11:12] LABS: Thyroid Stimulating Hormone 14.11 uIU/mL (0.27-4.20)
[2024-04-18] MEDS: propofol 1,000 MG/100 ML INJ 29.94 MG IV (12:21)
[2024-04-18 12:38] LABS: Glucose Point of Care 90 mg/dL (70-110)
--- NOTE | 2024-04-18 13:00 | P.CONIM_ITS ---
Providers/Reason For Consult 2 Consulting Physician/Specialty*: Lloyd Sunshine MD neurology and epilepsy Reason for Consult*: Recurrent seizures requiring intubation and IV anticonvulsant medications Attending Physician: Daniela Ireland MD Primary Care Provider: Diogenes Rees MD History of Present Illness History of Present Illness Kamala Srivastava is a 63 year old female followed by Dr. Anand with a history of narcolepsy followed by a sleep physician in [facility], treated with dextroamphetamine 20 mg p.o. 3 times daily, hypothyroidism, atrial fibrillation, cardiac arrest requiring resuscitation by her brother in 2020 with head MRI revealing PRES and reports of remote left occipital infarction 2020. MRI was performed at an facility. The patient also has a history of experiencing a seizure episode in 2020 addressed at [facility] emergency department. On 04/17/2024 the patient was riding in the passenger side of the truck on the night of 04/17/2024. According to the , they were dropping their nephew off at work and then they went to a friend's house. After arriving at the friend's house the stated that he opened the passenger door of the truck but the patient did not get out of the truck and was just sitting there and did not answer him. He stated that he went back to check on his a few minutes later and she had moved her body to the tanker truck driver side of the vehicle and was leaning against the tanker truck driver side window. The stated that he called out to his but she still would not respond. The hand he decided to shake her to get her attention and turn her head to face him and he stated his was staring and looking past him and again not responding. The stated that he attempted to help the patient out of the vehicle on the tanker truck driver side of the truck and took a few steps after his was removed from the vehicle and then she began experiencing generalized shaking of her body and still not responding. He then attempted to assist the patient to the passenger side of the truck but she began shaking even more violently. The stated they called EMS and met the ambulance en route to the [facility] emergency department. In the EMS care of the patient was witnessed to have another seizure and was witnessed to experience a third seizure in the emergency room described as generalized body shaking. The patient was intubated to protect her airway and to address acute respiratory failure with hypoxia and hypercapnia and the patient was started on propofol drip and Keppra 1000 mg IV every 12 hourly was added. Patient was admitted to the intensive care unit bed #11. Neurology consult was obtained on 04/18/2024. I spoke with the attending hospitalist and informed him that [facility] does not have the capacity to perform continuous video surface EEG monitoring to assess for subclinical seizures or subclinical status epilepticus. I recommend the patient be transferred to a facility with this capability. The hospitalist stated that the other hospitals in the surrounding areas are full with no ICU beds and they are attempting to contact other facilities at this time. I evaluated the patient on 04/18/2024 within less than 20 minutes of the consultation. The hospitalist ordered decreasing the propofol. The propofol was decreased prior to my assessment. The patient was still sedated on the ventilator. Pupils 4 mm. Patient does have signs of cataract surgery bilaterally which is remote. Pupils 4 mm and appear to be reactive to light. There were corneal reflexes. There was no clinical signs of any findings to suggest subclinical seizure activity. Patient did not display any body tremors or eye fluttering or dilatation of her eyes. There was no change in the patient's respiration. Noncontrast head CT 04/17/2024 revealed no acute findings. CT angiogram of the head and neck 01/18/2021 revealed no large vessel occlusion. Drug allergies: Eggs which resulted in muscle pain Cefuroxime (Zinacef) which resulted in redness of skin Ciprofloxacin which resulted in redness of skin Procaine/iodine (from Betadine) which resulted in a rash Soap (from Betadine) which resulted in a rash Current Home medications: Dextroamphetamine 20 mg p.o. 3 times daily Lipitor 20 mg p.o. daily Carvedilol 12.5 mg p.o. twice daily Vitamin D3 2,000 international units p.o. daily Clonidine 0.1 mg p.o. 3 times daily for hypertension Colace 250 mg p.o. daily, as needed Fluticasone/salmeterol 250 mcg/50 mcg 1 inhalation every 12 hours Neurontin 800 mg tablets to take as directed Hydrochlorothiazide 25 mg p.o. daily Levocetirizine 5 mg p.o. nightly Synthroid 200 mcg p.o. daily Synthroid 50 mcg p.o. daily Lisinopril 10 mg p.o. daily Mobic 15 mg p.o. daily Protonix 40 mg p.o. daily Ropinirole 5 mg p.o. daily Tramadol 50 mg p.o. 3 times daily as needed for pain Anoro Ellipta 1 inhalation daily Effexor XR 75 mg p.o. daily Tiotropium bromide 18 mcg capsules with inhalation device 1 capsule daily Ventolin 90 mcg per accusation 2 puffs every 6 hours as needed for shortness of breath Past medical history: Narcolepsy followed by a sleep doctor in [facility] Left occipital infarction 2020 Cardiac arrest with decreased level of consciousness requiring resuscitation and abnormal MRI revealing PRES in 2020 Atrial fibrillation Chronic obstructive pulmonary disease Constipation Metabolic acidosis with respiratory acidosis Degenerative disc disease of the cervical spine and thoracic spine Hypothyroidism Vitamin D deficiency Memory loss Seizures 2020 Fibromyalgia Restless leg syndrome Hernia Mixed hyperlipidemia Neuropathy Intractable migraine headaches without aura with status migrainous treated with Botox by Dr. Anand Habits: The patient smokes 1 pack/day. According to the family the patient does not have any other drug use. Family history: Negative for known family history of seizures Review of Systems 2 General: Reports: ROS unobtainable due to endotracheal tube and ROS unobtainable due to medical condition Medications/Allergies Home Medications ?Medication ?Instructions ?Recorded ?Confirmed ?Last Taken ?Type clonidine HCl 0.1 mg tablet 0.1 mg PO TID HTN #90 tabs 04/12/23 04/18/24 Unknown Rx dextroamphetamine sulfate 10 mg 20 mg PO TID 04/12/23 04/18/24 Unknown History tablet (Zenzedi) Ventolin HFA 90 mcg/actuation 2 puff inhalation Q6H MA N 08/28/23 04/18/24 Unknown Rx aerosol inhaler (albuterol sulfate) shortness of breat h or wheezing #18 grams docusate sodium 250 mg capsule 250 mg PO DAILY PRN con stipation 08/28/23 04/18/24 Unknown Rx (DSS) 90 days #90 caps levocetirizine 5 mg tablet (Xyzal) 5 mg PO .QHS #90 ta bs 08/28/23 04/18/24 Unknown Rx levothyroxine 200 mcg capsule 200 mcg PO DAILY 90 days #90 caps 08/28/23 04/18/24 Unknown Rx levothyroxine 50 mcg capsule 50 mcg PO DAILY 90 days # 90 caps 08/28/23 04/18/24 Unknown Rx ropinirole 5 mg tablet 5 mg PO DAILY 90 days #90 ta bs 08/28/23 04/18/24 Unknown Rx venlafaxine 75 mg capsule,extended 75 mg PO BID 30 day s #60 caps 08/28/23 04/18/24 Unknown Rx release 24 hr atorvastatin 20 mg tablet 20 mg PO DAILY 30 days #30 t abs 09/30/23 04/18/24 Unknown Rx carvedilol 12.5 mg tablet 12.5 mg PO BID 30 days #60 t abs 09/30/23 04/18/24 Unknown Rx cholecalciferol (vitamin D3) 50 50 mcg PO DAILY 90 day s #90 caps 09/30/23 04/18/24 Unknown Rx mcg (2,000 unit) capsule hydrochlorothiazide 25 mg tablet 25 mg PO QAM 30 days #30 tabs 09/30/23 04/18/24 Unknown Rx lisinopril 10 mg tablet 10 mg PO DAILY 30 days #30 t abs 09/30/23 04/18/24 Unknown Rx meloxicam 15 mg tablet 15 mg PO DAILY 30 days #30 t abs 09/30/23 04/18/24 Unknown Rx fluticasone 250 mcg-salmeterol 50 1 inh inhalation Q12 H #60 ea 10/30/23 04/18/24 Unknown Rx mcg/dose blistr powdr for inhalation (Advair Diskus) tiotropium bromide 18 mcg capsule 1 cap inhalation AYESHA LY #30 10/30/23 04/18/24 Unknown Rx with inhalation device (Spiriva inhalations with HandiHaler) gabapentin 800 mg tablet 800 mg PO .COMPLEX 10/31/23 04/18/24 Unknown History tramadol 50 mg tablet 50 mg PO TID PRN pain 30 day s #90 10/31/23 04/18/24 Unknown Rx tabs pantoprazole 40 mg tablet,delayed 40 mg PO QAM 5 04/18/24 Unknown History release umeclidinium 62.5 mcg-vilanterol 1 ea inhalation DAILY 04/18/24 04/18/24 Unknown History 25 mcg/actuation powdr for inhalation (Anoro Ellipta) Allergies Allergy/AdvReac Type Severity Reaction Status Date / Time egg Allergy Severe ADR-Muscle Verified 01/21/24 11:39 Pain cefuroxime (From Zinacef) Allergy ALGY-Redness Verified 10/31/23 14:14 of Skin ciprofloxacin Allergy ALGY-Redness Verified 10/31/23 14:14 of Skin povidone-iodine (From Allergy ALGY-Rash Verified 10/31/23 14:14 Betadine) soap (From Betadine) Allergy ALGY-Rash Verified 10/31/23 14:14 Current Medications Generic Name Dose Route Start Last Admin Trade Name Freq PRN Reason Stop Dose Admin Albuterol/Ipratropium 3 ml 04/18/24 01:24 04/18/24 08:01 Ipratropium-Albuterol 3 Ml Neb INHALATION 3 ml Q6H PRN Administration SHORTNESS OF BREATH Carvedilol 12.5 mg 04/18/24 09:00 04/18/24 09:37 Carvedilol 12.5 Mg Tablet PO Not Given BID AARON Fentanyl 1,000 mcg in 100 mls @ 0 mls/hr 04/17/24 23:29 04/18/24 10:44 Sublimaze IV 75 mcg/hr .Q0M AARON 7.5 mls/hr Titration Protocol Per Protocol Propofol 1,000 mg in 100 mls @ 0 mls/hr 04/18/24 00:45 04/18/24 12:51 Diprivan IV 40 mcg/kg/min .Q0M AARON 21.77 mls/hr Titration Protocol Per Protocol Levetiracetam 1,000 mg in 100 mls @ 400 mls/hr 04/18/24 01:30 04/18/24 03:43 Keppra IV Infused Q12H AARON Infusion Piperacillin Sod/Tazobactam 50 mls @ 12.5 mls/hr 04/18/24 06:00 04/18/24 09:35 Sod 3.375 gm/ Sodium Chloride IV Infused Q8H AARON Infusion Protocol Norepinephrine Bitartrate 4 mg in 250 mls @ 0 mls/hr 04/18/24 09:45 04/18/24 12:25 Levophed IV 12 mcg/min .Q0M AARON 45 mls/hr Titration Protocol Per Protocol Levothyroxine Sodium 200 mcg 04/18/24 06:00 04/18/24 05:21 Levothyroxine 200 Mcg Tablet PO 200 mcg QAM AARON Administration Pantoprazole Sodium 40 mg 04/18/24 09:00 04/18/24 09:03 Pantoprazole 40 Mg Sdv IVP 40 mg BID AARON Administration PFSH Acute 2 PFSH: Medical History (Updated 04/18/24 @ 02:27 by Navid Smiley MD) Chronic migraine without aura, intractable, with status migrainosus PRES (posterior reversible encephalopathy syndrome) Narcolepsy and cataplexy Anxiety and depression Surgical History H/O tubal ligation Family History Father Cancer Stroke Mother Clotting disorder Lung disease Grandfather Diabetes Grandmother Diabetes Son Suicide Denies family history of CAD (coronary artery disease) Dementia Hyperlipidemia Psychiatric illness Chronic kidney disease (CKD) Anesthesia complication Bleeding disorder Family history of premature coronary artery disease Hypertension Social History Smoking and tobacco/nicotine status: never used tobacco/nicotine Alcohol intake: never Substance/Drug Use: never Vitals/I&O/Wt Last Vital Signs Temp 98.9 F 04/18/24 07:45 Pulse 68 04/18/24 12:15 Resp 16 04/18/24 11:15 BP 88/53 04/18/24 12:15 Pulse Ox 97 04/18/24 12:15 O2 Del Method Mechanical Ventilation 04/18/24 12:15 FiO2 35 04/18/24 11:15 04/17/24 04/18/24 04/18/24 22:59 06:59 14:59 Intake Total 1606.280 / 1606.280 335.431 / 335.431 Output Total 200 / 200 Balance 1406.280 / 1406.280 335.431 / 335.431 Weight last 48 hrs Weight 162 lb 12.8 oz Weight 162 lb 12.8 oz Weight 200 lb Weight 7.055 oz Physical Exam 2 Narrative: The patient is weaning off of propofol drip. She is intubated on the ventilator. Pupils 4 mm with signs of cataract surgery bilaterally. Pupils 4 mm round and reactive to light. There were no obvious involuntary movements of her eyes observed. Face revealed no facial twitching and there was no obvious facial weakness. Motor testing revealed the separate posture. Patient is on sedation with IV propofol which is being weaned. Deep tendon reflex revealed plantar responses bilaterally. There was no clonus. Sensory examination revealed intact corneal reflexes. Throat difficult to assess secondary to intubation. Lungs clear. Heart appears to be regular rhythm and rate extremities negative for cyanosis. There was no obvious signs of clinical seizures and no spasticity observed during evaluation. Urinary Catheter Management: Silva: Cath Placed During This Visit: yes Reason for Continuing Indwelling Catheter: Accurate Measurement of Urinary Output in Critically Ill Patients Urinary Catheter Date of Insertion: 04/18/24 Data 04/18/24 10:13 04/18/24 10:13 Micro: Microbiology 04/17/24 00:17 Blood Culture - Preliminary Blood SPECIMEN COLLECTED 04/17/24 00:17 Blood Culture - Preliminary Blood SPECIMEN COLLECTED A&P Assessment and plan (1) Status epilepticus: Impression: 1. Status epilepticus 04/17/2024 2. Narcolepsy treated with dextroamphetamine 20 mg p.o. 3 times daily prescribed by sleep doctor in [facility] 3. History of atrial fibrillation 4. History of remote left occipital lobe infarct 5. History of cardiac arrest associated with abnormal head MRI 2020 suggestive of PRES 6. Chronic obstructive pulmonary disease 7. Hypothyroidism Plan: 1. Although clinically at this time the patient does not appear to be experiencing any obvious clinical seizures, recommend transfer to another facility that has the capability of performing prolonged inpatient continuous video surface EEG monitoring to assess for subclinical seizure activity and subclinical status epilepticus if the patient's mental status does not improve 2. Agree with weaning propofol to determine if patient is experiencing any clinical seizures 3. Recommend changing IV Keppra to 500 mg IV every 6 hours 4. Trough Keppra level 04/19/2024 and adjust Keppra as needed/tolerated 5. Ativan 1 mg IV every 6 hours as needed seizures lasting greater than 2 minutes or greater than 2 seizures within a 1 hour period of time 6. Will recommend starting IV midazolam and titrated to effect if the patient experiences any further clinical seizures or findings to suggest subclinical status epilepticus 7. Seizure precaution per ICU protocol and per state law 8. Since patient had reported history of atrial fibrillation, if patient's child monitor reveals sinus to suggest recurrent atrial fibrillation recommend cardiac evaluation to determine if patient should be on anticoagulation 9. Recommend discontinuing tramadol since this medication has been reported to increased potential for seizure activity 10. Recommend discontinuing meloxicam (Mobic) since nonsteroidal anti- inflammatory medications other than aspirin have been reported in the literature to increase risk for heart disease and strokes 11. Fall precautions (2) Seizure: PDMP PDMP Reviewed: Not Reviewed Consult Attestations 2 Medical Necessity Statement: The patient was evaluated by neurology for recurrent seizures and to assess for subclinical status epilepticus Coding Level of Care Code 84267 Diagnoses Status epilepticus G40.901 Seizure R56.9
--- NOTE | 2024-04-18 13:35 | PM.MISC ---
Miscellaneous Note Purpose of Documentation: Labs and H&P reviewed. Patient presented to the hospital with 3 episodes of seizures, witnessed by EMS and ultimately in the emergency room. Patient was eventually intubated for ongoing seizures and poor mentation. Neurology consult was obtained today for new onset seizure, possible status epilepticus. It was recommended patient be transferred to a higher center with capability of continuous EEG monitoring which we do not currently have at [facility]. We have been in touch with in [facility] who currently do not have beds. At this time we are attempting to wean down the propofol and assess for patient response. If patient is currently awake alert, able to follow some commands, then less likely to be in status. Patient was also hypotensive this morning with MAP of 62 mmHg. She is currently on Levophed infusion. Hopeful that with turning on propofol her blood pressure might improve in addition. chest abdomen and pelvis performed yesterday without any obvious source of infection. Right mainstem bronchus was initially intubated, on subsequent x-ray, tube was noted to be 3 cm above the adriel. CT head without acute intracranial abnormalities. Unable to get a brain MRI while patient is intubated. Troponin delta noted. Currently on full dose Lovenox due to concern for NSTEMI. Awaiting echocardiogram to assess for any regional wall motion abnormalities. rigth femoral Central line was placed this morning due to poor peripheral IV access, need for pressor support , multiple iv abx
[2024-04-18] MEDS: enoxaparin 80 mg/0.8 mL Syringe 70 MG SUBCUT (14:20)
[2024-04-18] MEDS: thiamine 100 mg/mL 2mL SDV IVP (14:21)
[2024-04-18] MEDS: midazolam hcl 100 MG/100 ML BAG IV (14:55)
--- NOTE | 2024-04-18 14:59 | PC.NURSE ---
Waste of remaining propofol with TYLER Charge nurse.
[2024-04-18] MEDS: norepinephrine 4 MG/250 ML BAG 45 MG IV (15:31)
[2024-04-18 16:22] LABS: Glucose Point of Care 117 mg/dL (70-110)
[2024-04-18] MEDS: fentaNYL 1,000 MCG/100 ML BAG 10 MCG IV (17:18)
--- NOTE | 2024-04-18 18:45 | PC.NURSE ---
Secretions increasing throughout shift.
[2024-04-19] VITALS (91 sets, daily range): BP systolic 81–152; BP diastolic 49–119; PULSE 55–90; RESP 16–24; TEMP 36.5–37.2; O2SAT 86–100
[2024-04-19] MEDS: dexmedeTOMIDine 0.9 % NaCL 400 MCG/100 ML PREMIX IV (00:56)
[2024-04-19] MEDS: ipratropium-albuterol 3 mL Neb INHALATION ×4 (01:52→20:33)
[2024-04-19 01:57] LABS: Glucose Point of Care 89 mg/dL (70-110)
[2024-04-19] MEDS: enoxaparin 80 mg/0.8 mL Syringe 70 MG SUBCUT (02:09)
[2024-04-19] MEDS: thiamine 100 mg/mL 2mL SDV IVP ×2 (02:09→14:42)
[2024-04-19] MEDS: levETIRAcetam 500 MG/100 ML PREMIX 400 MG IV ×2 (02:09→14:42)
[2024-04-19 04:17] LABS: Basophils # 0.1 10^3/uL (0.0-0.1); Basophils % 0.7 %; Eosinophils # 0.2 10^3/uL (0.0-0.8); Eosinophils % 1.6 %; Hematocrit 34.2 % (36-47); Lymphocytes # 0.7 10^3/uL (0.8-4.8); Lymphocytes % 6.1 %; Mean Platelet Volume 9.5 fL (7.4-10.4); Monocytes % 9.1 %; Neutrophils # 8.73 10^3/uL (1.8-7.7); Neutrophils % 82.1 %; Nucleated Red Blood Cells % 0 %; Platelet Count 247 10^3/cmm (157-399); Red Blood Count 3.42 10^6/uL (3.85-5.65); Red Cell Distribution Width 14.7 % (12.1-15.1); White Blood Count 10.63 10^3/uL (3.29-11.43)
[2024-04-19 04:38] LABS: Alanine Aminotransferase 32 U/L (0-33); Albumin Level 3.1 g/dL (3.5-5.2); Alkaline Phosphatase 82 U/L (35-105); Anion Gap 14.5 (5-19); Aspartate Amino Transferase 22 U/L (0-32); Blood Urea Nitrogen 17 mg/dL (8-23); Calcium 7.5 mg/dL (8.5-10.5); Carbon Dioxide 27 mmol/L (22-29); Chloride 105 mmol/L (98-107); Creatinine Clr Calc Pharmacy 52.3383; Glomerular Filtration Rate 56.2 mL/min (90-130); Glucose 129 mg/dL (65-115); Osmolality Calculated 299 mOsm/kg (285-295); Potassium 3.5 mmol/L (3.5-5.1); Sodium 143 mmol/L (136-145); Total Bilirubin 0.8 mg/dL (0.15-1.2); Total Protein 6.1 g/dL (6.6-8.7)
[2024-04-19] MEDS: levothyroxine 200 mcg Tablet PO (05:15)
[2024-04-19] MEDS: piperacillin-tazobactam 3.375 GM in sodium chloride 0.9% (plus) 50 ML IV (05:15)
[2024-04-19] MEDS: fentaNYL 1,000 MCG/100 ML BAG 5 MCG IV (05:16)
[2024-04-19] MEDS: dexmedeTOMIDine 0.9 % NaCL 400 MCG/100 ML PREMIX 11.08 MCG IV (06:48)
[2024-04-19] MEDS: pantoprazole 40 mg SDV IVP ×2 (08:29→18:41)
[2024-04-19 08:42] LABS: Glucose Point of Care 89 mg/dL (70-110)
[2024-04-19 10:34] LABS: Free T4 Free Thyroxine 0.74 ng/dL (0.82-1.77)
--- NOTE | 2024-04-19 10:55 | PC.NURSE ---
Waste of remaining fentanyl and versed with EMEKA.Colton charge nurse.
--- NOTE | 2024-04-19 10:57 | PC.NURSE ---
All sedation off per MAY. Patient passed weaning trial. Lilia RT extubated patient with this RN per Dr. Ireland order. Patient on 3L NC. Patient states, What the fuck did you do to me!? airway effectively clear. Patient educated to cough any secretions out. Family now at bedside.
[2024-04-19 12:05] LABS: Glucose Point of Care 117 mg/dL (70-110)
[2024-04-19] MEDS: diphenhydrAMINE 25 mg Capsule PO (12:39)
--- NOTE | 2024-04-19 13:03 | P.PN_ITS ---
Subjective 2 Subjective: Patient was on minimal vent settings this morning. ABG 7.3/48. 9/157/26.3. Successfully extubated this morning. Medications: Reviewed: Yes Vitals/I&O/Wt Last Vital Signs Temp 97.7 F 04/19/24 12:00 Pulse 71 04/19/24 12:00 Resp 16 04/19/24 10:16 BP 104/51 04/19/24 12:00 Pulse Ox 92 04/19/24 12:00 O2 Del Method Nasal Cannula 04/19/24 12:00 O2 Flow Rate 3 04/19/24 10:45 FiO2 35 04/19/24 10:16 04/18/24 04/19/24 04/19/24 22:59 06:59 14:59 Intake Total 511.945 / 2028.399 347.521 / 2375.920 69.350 / 69.350 Output Total 350 / 350 400 / 750 Balance 161.945 / 1678.399 -52.479 / 1625.920 69.350 / 69.350 Weight last 48 hrs Weight 74.298 kg Weight 73.845 kg Weight 73.845 kg Weight 90.718 kg Weight 200 g Physical Exam 2 Narrative: General: restless, AO x3, HEENT: PERRLA, pupils bilaterally equal and reactive, pallors not present Chest: Normal vesicular breath sounds, no added sounds, equal good air entry bilaterally CVS: S1-S2 regular, no murmurs, no tachycardia, no gallops, no rubs Abdomen: Soft, nontender, no organomegaly, bowel sounds present Neuro: No focal deficits, no facial deformity, AO x3, power 5/5 in all limbs Urinary Catheter Management: Silva: Cath Placed During This Visit: yes Reason for Continuing Indwelling Catheter: Accurate Measurement of Urinary Output in Critically Ill Patients Urinary Catheter Date of Insertion: 04/18/24 Data 04/19/24 03:57 04/19/24 03:57 Micro: Microbiology 04/17/24 00:17 Blood Culture - Preliminary Blood NEGATIVE TO DATE 04/17/24 00:17 Blood Culture - Preliminary Blood NEGATIVE TO DATE A&P Assessment and plan (1) Status epilepticus: (2) Acidosis, metabolic, with respiratory acidosis: (3) Anemia: (4) Seizure: (5) Chronic migraine without aura, intractable, with status migrainosus: (6) Asthma-COPD overlap syndrome: (7) Acute respiratory failure with hypoxia and hypercapnia: Plan Status epilepticus Patient had 3 seizures within 2 hours Concern for polypharmacy, patient takes Adderall, medications for her fibromyalgia, amitriptyline, gabapentin She was intubated by the ER physician Currently on propofol I will put her on Keppra She does not take any antibiotics Patient is afebrile Request EKG Mixed respiratory and metabolic acidosis high lactic acid related seizure Repeat ABG in an hour Respiratory failure Patient got intubated for airway protection Wean off propofol in next 8 to 12 hours, plan to extubate after 12 hours if she is able to follow commands CT head unremarkable Afebrile I would keep meningitis in my differentials as well Aspiration pneumonia: Patient is afebrile, we will put her on Zosyn Narcolepsy/fibromyalgia/migraine Patient takes Adderall at home History of hypothyroidism: Continue levothyroxine GI protection: Protonix N.p.o. diet DVT prophylaxis heparin High BNP clinically patient does not look fluid overloaded continue normal saline for now Patient is not diabetic Full code April 19, 2024 Patient was successfully extubated today. She was previously intubated due to concern for respiratory distress as a result of status epilepticus, acute hypoxic and hypercapnic respiratory failure. ABG much improved this morning, successfully extubated. Patient is restless however alert awake and oriented x 3. Will attempt to wean down on Precedex and discontinue. Chest is currently clear to auscultation. Start DuoNeb every 6 hours inhalation along with budesonide to replace her inhalers that she takes on a daily basis. Continue Keppra 500 mg every 12 hours and monitor for any further recurrence of seizures. Troponins upon admission baseline at 22, 2 hours at 70, 6 hours at 53 with positive delta is at 2 and 6-hour. There were no acute ST-T wave changes on review of EKG. echocardiogram showing normal LVEF of 60%, systolic function and wall thickness without any regional wall motion abnormalities. Moderate aortic valve calcification and mild aortic valve stenosis noted. Favor elevated troponins to be related to type II MN from seizure, aortic valve stenosis. May need to consider a stress test prior to discharge if patient remains seizure-free. CT of the chest abdomen and pelvis was without any acute signs of pneumonia or other abdominal pathology. Urine analysis with negative nitrate, negative leukocyte Estrace, no WBCs. Blood culture negative to date. Discontinue IV piperacillin/tazobactam as no localizing signs or symptoms of infection at this time.Closely monitor in the ICU today PDMP PDMP Reviewed: Not Reviewed Attestations 2 Medical Necessity Statement*: post extubation today, monitorfor seizures Critical Care Time: The high probability of a clinically significant, sudden or life threatening deterioration of the patient's [neuro, respiratory, cardiac] system(s) required my full and direct attention, intervention and personal management. The critical care time is as shown. This time is in addition to time spent performing any reported procedures but includes the following: [x] Data and vital sign review and interpretation [x] Patient assessment, examination and intervention [x] Documentation [x] Medication orders and management Critical Care Time (min): 45 Coding Level of Care Code Critical Care >/= 30 minutes Diagnoses Status epilepticus G40.901 Acidosis, metabolic, with respiratory acidosis E87.4 Anemia D64.9 Seizure R56.9 Chronic migraine without aura, intractable, with status migrainosus G43.711 Asthma-COPD overlap syndrome J44.89 Acute respiratory failure with hypoxia and hypercapnia J96.01; J96.02
[2024-04-19 17:06] LABS: Glucose Point of Care 91 mg/dL (70-110)
[2024-04-19] MEDS: carvedilol 12.5 mg Tablet PO (18:40)
[2024-04-19] MEDS: venlafaxine ER (24HR) 75 mg Capsule PO (18:41)
[2024-04-19] MEDS: budesonide 0.5 mg/2 mL Neb INHALATION (20:33)
[2024-04-19 22:28] LABS: Glucose Point of Care 101 mg/dL (70-110)
[2024-04-20] VITALS (56 sets, daily range): BP systolic 102–195; BP diastolic 68–127; PULSE 55–78; RESP 16–18; TEMP 36.3–36.6; O2SAT 88–100
[2024-04-20] MEDS: levETIRAcetam 500 MG/100 ML PREMIX 400 MG IV ×2 (01:04→14:08)
[2024-04-20] MEDS: thiamine 100 mg/mL 2mL SDV IVP ×2 (01:05→14:08)
[2024-04-20] MEDS: ipratropium-albuterol 3 mL Neb INHALATION ×4 (01:11→21:34)
[2024-04-20 05:01] LABS: Basophils # 0.1 10^3/uL (0.0-0.1); Basophils % 0.7 %; Eosinophils # 0.3 10^3/uL (0.0-0.8); Eosinophils % 2.8 %; Hematocrit 33.1 % (36-47); Lymphocytes # 0.7 10^3/uL (0.8-4.8); Lymphocytes % 6.8 %; Mean Corpuscular HGB Conc 30.8 g/dL (30-55); Mean Corpuscular Hemoglobin 30.9 pg (27-33); Mean Corpuscular Volume 100.3 fl (85-98); Monocytes # 0.9 10^3/uL (0.2-0.9); Monocytes % 9.4 %; Neutrophils # 7.76 10^3/uL (1.8-7.7); Neutrophils % 79.8 %; Nucleated Red Blood Cells % 0 %; Platelet Count 249 10^3/cmm (157-399); Red Cell Distribution Width 14.4 % (12.1-15.1); White Blood Count 9.72 10^3/uL (3.29-11.43)
[2024-04-20 05:22] LABS: Alanine Aminotransferase 28 U/L (0-33); Albumin Level 3.6 g/dL (3.5-5.2); Alkaline Phosphatase 81 U/L (35-105); Anion Gap 14.5 (5-19); Aspartate Amino Transferase 26 U/L (0-32); Blood Urea Nitrogen 15 mg/dL (8-23); Calcium 8.5 mg/dL (8.5-10.5); Carbon Dioxide 27 mmol/L (22-29); Chloride 102 mmol/L (98-107); Creatinine Clr Calc Pharmacy 58.3391; Globulin 3.1 g/dL (1.3-4.6); Glomerular Filtration Rate 63.4 mL/min (90-130); Glucose 101 mg/dL (65-115); Osmolality Calculated 291 mOsm/kg (285-295); Potassium 3.5 mmol/L (3.5-5.1); Sodium 140 mmol/L (136-145); Total Bilirubin 0.8 mg/dL (0.15-1.2); Total Protein 6.7 g/dL (6.6-8.7)
[2024-04-20] MEDS: levothyroxine 125 mcg Tablet PO (05:35)
[2024-04-20] MEDS: levothyroxine 100 mcg Tablet PO (05:35)
[2024-04-20 06:44] LABS: Glucose Point of Care 99 mg/dL (70-110)
[2024-04-20] MEDS: budesonide 0.5 mg/2 mL Neb INHALATION ×2 (07:56→21:34)
[2024-04-20] MEDS: aspirin 81 mg EC Tablet PO (08:35)
[2024-04-20] MEDS: atorvastatin 40 mg Tablet 20 MG PO (08:35)
[2024-04-20] MEDS: carvedilol 12.5 mg Tablet PO ×2 (08:35→17:23)
[2024-04-20] MEDS: venlafaxine ER (24HR) 75 mg Capsule PO ×2 (08:35→17:23)
[2024-04-20] MEDS: pantoprazole 40 mg SDV IVP ×2 (08:36→17:23)
--- NOTE | 2024-04-20 11:37 | XR_ITS ---
WS: [id number] XR chest 1V portable [id number] REASON FOR EXAM: hypoxia FINDINGS: Compared to the examination of 04/18/2024, a diffuse reticular interstitial opacification has developed with peribronchial cuffing. In the left lower hemithorax there is consolidation of airspace with obscuration of the left hemidiaphragm. There is a small amount of fluid in the minor fissure on the righ t. The heart is at the upper limits of normal in size. XR/XR chest 1V portable [id number] IMPRESSION: Interval change most compatible with pulmonary edema and atelectasis in the lef t lung base as above.
--- NOTE | 2024-04-20 11:40 | P.PN_ITS ---
Subjective 2 Subjective: Seen this morning. Daughter at bedside. Patient was extubated yesterday. She has been doing well from seizure standpoint. She has not had any seizure since yesterday. She is stable on Keppra at this time. Is not hungry this morning. Patient is requiring 5 L nasal cannula which is a new oxygen requirement for her. As per daughter she is not on any oxygen at home. Vitals/I&O/Wt Last Vital Signs Temp 97.9 F 04/20/24 08:39 Pulse 61 04/20/24 10:30 Resp 18 04/20/24 07:56 BP 146/71 04/20/24 10:30 Pulse Ox 90 04/20/24 10:30 O2 Del Method Nasal Cannula 04/20/24 07:56 O2 Flow Rate 3 04/20/24 07:56 FiO2 35 04/19/24 10:16 04/19/24 04/20/24 04/20/24 22:59 06:59 14:59 Intake Total 300 / 456.513 100 / 556.513 240 / 240 Output Total 650 / 650 300 / 950 Balance -350 / -193.487 -200 / -393.487 240 / 240 Weight last 48 hrs Weight 74.778 kg Weight 74.298 kg Physical Exam 2 Narrative: General: restless, AO x3, HEENT: PERRLA, pupils bilaterally equal and reactive, pallors not present Chest: Normal vesicular breath sounds, no added sounds, equal good air entry bilaterally CVS: S1-S2 regular, no murmurs, no tachycardia, no gallops, no rubs Abdomen: Soft, nontender, bowel sounds present Neuro: No focal deficits, no facial deformity, AO x3, Urinary Catheter Management: Silva: Cath Placed During This Visit: yes Reason for Continuing Indwelling Catheter: Accurate Measurement of Urinary Output in Critically Ill Patients Urinary Catheter Date of Insertion: 04/18/24 Data 04/20/24 04:17 04/20/24 04:17 A&P Assessment and plan (1) Status epilepticus: (2) Acidosis, metabolic, with respiratory acidosis: (3) Anemia: (4) Seizure: (5) Chronic migraine without aura, intractable, with status migrainosus: (6) Asthma-COPD overlap syndrome: (7) Acute respiratory failure with hypoxia and hypercapnia: Plan Status epilepticus Patient had 3 seizures within 2 hours Concern for polypharmacy, patient takes Adderall, medications for her fibromyalgia, amitriptyline, gabapentin She was intubated by the ER physician Currently on propofol I will put her on Keppra She does not take any antibiotics Patient is afebrile Request EKG Mixed respiratory and metabolic acidosis high lactic acid related seizure Repeat ABG in an hour Respiratory failure Patient got intubated for airway protection Wean off propofol in next 8 to 12 hours, plan to extubate after 12 hours if she is able to follow commands CT head unremarkable Afebrile I would keep meningitis in my differentials as well Aspiration pneumonia: Patient is afebrile, we will put her on Zosyn Narcolepsy/fibromyalgia/migraine Patient takes Adderall at home History of hypothyroidism: Continue levothyroxine GI protection: Protonix N.p.o. diet DVT prophylaxis heparin High BNP clinically patient does not look fluid overloaded continue normal saline for now Patient is not diabetic Full code April 19, 2024 Patient was successfully extubated today. She was previously intubated due to concern for respiratory distress as a result of status epilepticus, acute hypoxic and hypercapnic respiratory failure. ABG much improved this morning, successfully extubated. Patient is restless however alert awake and oriented x 3. Will attempt to wean down on Precedex and discontinue. Chest is currently clear to auscultation. Start DuoNeb every 6 hours inhalation along with budesonide to replace her inhalers that she takes on a daily basis. Continue Keppra 500 mg every 12 hours and monitor for any further recurrence of seizures. Troponins upon admission baseline at 22, 2 hours at 70, 6 hours at 53 with positive delta is at 2 and 6-hour. There were no acute ST-T wave changes on review of EKG. echocardiogram showing normal LVEF of 60%, systolic function and wall thickness without any regional wall motion abnormalities. Moderate aortic valve calcification and mild aortic valve stenosis noted. Favor elevated troponins to be related to type II UT from seizure, aortic valve stenosis. May need to consider a stress test prior to discharge if patient remains seizure-free. CT of the chest abdomen and pelvis was without any acute signs of pneumonia or other abdominal pathology. Urine analysis with negative nitrate, negative leukocyte Estrace, no WBCs. Blood culture negative to date. Discontinue IV piperacillin/tazobactam as no localizing signs or symptoms of infection at this time.Closely monitor in the ICU today 04/20/2024 Seen this morning. Patient was extubated yesterday. Has been seizure-free. She is requiring 5 L of cannula. Echo does show grade 3 x 4 diastolic dysfunction. Will repeat chest x-ray today. Will order Lasix 40 IV x 1. She is requiring 5 L nasal cannula at this time. Patient appears quite weak. Will check PT OT. Monitor off antibiotics at this time. Cardiology consulted. Troponins were elevated. Will await further recommendations. Will switch to oral Keppra today. Transfer to [facility]. If remains stable by tomorrow may be able to discharge as long as oxygenation status is addressed. Patient is 2800 cc positive since admission. Will check BNP. PDMP PDMP Reviewed: Not Reviewed Attestations 2 Medical Necessity Statement*: Requires continued hospitalization secondary to hypoxia requiring 5 L nasal cannula. Patient has been seizure-free since extubation yesterday. Continue to hospitalize at this time. Diagnoses Status epilepticus G40.901 Acidosis, metabolic, with respiratory acidosis E87.4 Anemia D64.9 Seizure R56.9 Chronic migraine without aura, intractable, with status migrainosus G43.711 Asthma-COPD overlap syndrome J44.89 Acute respiratory failure with hypoxia and hypercapnia J96.01; J96.02
[2024-04-20] MEDS: potassium chloride ER 20 mEq Tablet 40 MEQ PO (12:31)
[2024-04-20] MEDS: FUROsemide 10 mg/mL SDV 4mL 40 MG IVP ×2 (12:31→17:25)
--- NOTE | 2024-04-20 12:52 | PC.NURSE ---
Patient pulled out right femoral cental line. Notified Dr. Madsen.
[2024-04-20 13:44] LABS: NT Pro B Type Natriuretic Pept 1773 pg/mL (0-125)
--- NOTE | 2024-04-20 15:48 | P.CONIM_ITS ---
Documented by User: Heather Pedroza NP 04/20/24 16:36 Providers/Reason For Consult 2 Consulting Physician/Specialty*: Ann Abrams MD Reason for Consult*: Elevated troponin Requesting Physician: Dr. Madsen Attending Physician: Ayah Madsen MD Primary Care Provider: Diogenes Rees MD History of Present Illness History of Present Illness This is a very pleasant 63-year-old female who was brought to the EMS 3 days ago due to unresponsiveness. Right before entering the hospital parking lot she began seizing. She was still seizing in the ER. Patient was intubated for airway protection and sedated. She had 3 seizures within 2 hours. She was able to be extubated. She has a hx of left heart cath that was negative for significant coronary lesions in 2017. She has a hx of hypertension, hypercholesterolemia, and current smoker. Troponins upon admission were baseline 22, 2 hours at 70, 6 hours at 53 with positive delta. At this time she denies any chest pain although is somewhat poor historian. She does have a family member present with her. EKG showed rather diffuse t wave abnormalities, which is new for her. Recent echo showed EF normal at 60% with grade II/IV diastolic dysfunction. No wall motion abnormalities present. Review of Systems 2 Narrative: Consitutional: denies fever, chills, body aches, or changes in appetite, denies abnormal weight loss Eyes: Denies changes in vision Card: Denies chest pain, palpitations, irregular heart rhythm, edema, syncope, shortness of breath, orthopnea, leg pain with exertion Resp: Denies shortness of breath, denies hemoptysis, denies cough GI: denies abdominal pain, denies nausea or voimting, denies blood in stool : denies blood in urine, denies dysuria Musc: Denies extremity pain, denies limited range of motion or recent injury Skin: Denies rash, lesions, or wounds, denies changes to skin color Neuro: Denies nubmness in extremities, h/a, s/s of stroke Adi: Denies easy bruiding/bleeding Medications/Allergies Home Medications ?Medication ?Instructions ?Recorded ?Confirmed ?Last Taken ?Type clonidine HCl 0.1 mg tablet 0.1 mg PO TID HTN #90 tabs 04/12/23 04/18/24 Unknown Rx dextroamphetamine sulfate 10 mg 20 mg PO TID 04/12/23 04/18/24 Unknown History tablet (Zenzedi) Ventolin HFA 90 mcg/actuation 2 puff inhalation Q6H MS N 08/28/23 04/18/24 Unknown Rx aerosol inhaler (albuterol sulfate) shortness of breat h or wheezing #18 grams docusate sodium 250 mg capsule 250 mg PO DAILY PRN con stipation 08/28/23 04/18/24 Unknown Rx (DSS) 90 days #90 caps levocetirizine 5 mg tablet (Xyzal) 5 mg PO .QHS #90 ta bs 08/28/23 04/18/24 Unknown Rx levothyroxine 200 mcg capsule 200 mcg PO DAILY 90 days #90 caps 08/28/23 04/18/24 Unknown Rx levothyroxine 50 mcg capsule 50 mcg PO DAILY 90 days # 90 caps 08/28/23 04/18/24 Unknown Rx ropinirole 5 mg tablet 5 mg PO DAILY 90 days #90 ta bs 08/28/23 04/18/24 Unknown Rx venlafaxine 75 mg capsule,extended 75 mg PO BID 30 day s #60 caps 08/28/23 04/18/24 Unknown Rx release 24 hr atorvastatin 20 mg tablet 20 mg PO DAILY 30 days #30 t abs 09/30/23 04/18/24 Unknown Rx carvedilol 12.5 mg tablet 12.5 mg PO BID 30 days #60 t abs 09/30/23 04/18/24 Unknown Rx cholecalciferol (vitamin D3) 50 50 mcg PO DAILY 90 day s #90 caps 09/30/23 04/18/24 Unknown Rx mcg (2,000 unit) capsule hydrochlorothiazide 25 mg tablet 25 mg PO QAM 30 days #30 tabs 09/30/23 04/18/24 Unknown Rx lisinopril 10 mg tablet 10 mg PO DAILY 30 days #30 t abs 09/30/23 04/18/24 Unknown Rx meloxicam 15 mg tablet 15 mg PO DAILY 30 days #30 t abs 09/30/23 04/18/24 Unknown Rx fluticasone 250 mcg-salmeterol 50 1 inh inhalation Q12 H #60 ea 10/30/23 04/18/24 Unknown Rx mcg/dose blistr powdr for inhalation (Advair Diskus) tiotropium bromide 18 mcg capsule 1 cap inhalation AYESHA LY #30 10/30/23 04/18/24 Unknown Rx with inhalation device (Spiriva inhalations with HandiHaler) gabapentin 800 mg tablet 800 mg PO .COMPLEX 10/31/23 04/18/24 Unknown History tramadol 50 mg tablet 50 mg PO TID PRN pain 30 day s #90 10/31/23 04/18/24 Unknown Rx tabs pantoprazole 40 mg tablet,delayed 40 mg PO QAM 5 04/18/24 Unknown History release umeclidinium 62.5 mcg-vilanterol 1 ea inhalation DAILY 04/18/24 04/18/24 Unknown History 25 mcg/actuation powdr for inhalation (Anoro Ellipta) Allergies Allergy/AdvReac Type Severity Reaction Status Date / Time egg Allergy Severe ADR-Muscle Verified 01/21/24 11:39 Pain cefuroxime (From Zinacef) Allergy ALGY-Redness Verified 10/31/23 14:14 of Skin ciprofloxacin Allergy ALGY-Redness Verified 10/31/23 14:14 of Skin povidone-iodine (From Allergy ALGY-Rash Verified 10/31/23 14:14 Betadine) soap (From Betadine) Allergy ALGY-Rash Verified 10/31/23 14:14 Current Medications Generic Name Dose Route Start Last Admin Trade Name Freq PRN Reason Stop Dose Admin Albuterol/Ipratropium 3 ml 04/19/24 14:00 04/20/24 14:12 Ipratropium-Albuterol 3 Ml Neb INHALATION 3 ml Q6H.RESP AARON Administration Aspirin 81 mg 04/20/24 09:00 04/20/24 08:35 Aspirin 81 Mg Ec Tablet PO 81 mg DAILY AARON Administration Atorvastatin Calcium 20 mg 04/20/24 09:00 04/20/24 08:35 Atorvastatin 40 Mg Tablet PO 20 mg DAILY AARON Administration Budesonide 0.5 mg 04/19/24 20:00 04/20/24 07:56 Budesonide 0.5 Mg/2 Ml Neb INHALATION 0.5 mg BID.RESPIRATORY AARON Administration Carvedilol 12.5 mg 04/18/24 09:00 04/20/24 08:35 Carvedilol 12.5 Mg Tablet PO 12.5 mg BID AARON Administration Levetiracetam 500 mg in 100 mls @ 400 mls/hr 04/18/24 14:00 04/20/24 14:25 Keppra IV Infused Q12H AARON Infusion Levothyroxine Sodium 100 mcg 04/20/24 06:00 04/20/24 05:35 Levothyroxine 100 Mcg Tablet PO 100 mcg QAM AARON Administration Levothyroxine Sodium 125 mcg 04/20/24 06:00 04/20/24 05:35 Levothyroxine 125 Mcg Tablet PO 125 mcg QAM AARON Administration Pantoprazole Sodium 40 mg 04/18/24 09:00 04/20/24 08:36 Pantoprazole 40 Mg Sdv IVP 40 mg BID AARON Administration Potassium Chloride 40 meq 04/20/24 12:15 04/20/24 12:31 Potassium Chloride Er 20 Meq Tablet PO 40 meq DAILY AARON Administration Thiamine HCl 100 mg 04/18/24 14:00 04/20/24 14:08 Thiamine 100 Mg/Ml 2ml Sdv IVP 100 mg Q12H AARON Administration Venlafaxine HCl 75 mg 04/19/24 18:00 04/20/24 08:35 Venlafaxine Er (24hr) 75 Mg Capsule PO 75 mg BID AARON Administration PFSH Acute 2 PFSH: Medical History (Updated 04/20/24 @ 15:57 by Heather Pedroza NP) Chronic migraine without aura, intractable, with status migrainosus PRES (posterior reversible encephalopathy syndrome) Narcolepsy and cataplexy Anxiety and depression Surgical History H/O tubal ligation Family History Father Cancer Stroke Mother Clotting disorder Lung disease Grandfather Diabetes Grandmother Diabetes Son Suicide Denies family history of CAD (coronary artery disease) Dementia Hyperlipidemia Psychiatric illness Chronic kidney disease (CKD) Anesthesia complication Bleeding disorder Family history of premature coronary artery disease Hypertension Social History Smoking and tobacco/nicotine status: never used tobacco/nicotine Alcohol intake: never Substance/Drug Use: never Vitals/I&O/Wt Last Vital Signs Temp 97.9 F 04/20/24 08:39 Pulse 60 04/20/24 14:12 Resp 16 04/20/24 14:12 BP 156/78 04/20/24 14:00 Pulse Ox 97 04/20/24 14:12 O2 Del Method Nasal Cannula 04/20/24 14:12 O2 Flow Rate 3 04/20/24 14:12 FiO2 35 04/19/24 10:16 04/20/24 04/20/24 04/20/24 06:59 14:59 22:59 Intake Total 100 / 556.513 580 / 580 Output Total 300 / 950 1800 / 1800 Balance -200 / -393.487 -1220 / -1220 Weight last 48 hrs Weight 164 lb 13.732 oz Weight 163 lb 12.8 oz Physical Exam 2 Narrative: General: No apparent distress, healthy appearing, well nourished HENMT: normoceophalic Neck: No carotid bruit bilaterally Muskuloskeletal: Full ROM Lymphatic: no lymphedema noted Respiratory: Normal respiratory effort, clear to auscultation bilaterally throughout all lung doherty, no use of accessory muscles Cardio: No JVD, regular rate, regular rhythm, S1 S2 normal, no murmurs, peripheral pulses 2+ throughout GI: Normal to inspection, nondistended Extremities: Full ROM, normal, normal capillary refill, no cyanosis or edema Neuro: Alert and oriented x4, no focal motor deficits Psych: Affect normal, denies suicidal ideation, mental status grossly normal Skin: No rashes or lesions noted, no wounds Urinary Catheter Management: Silva: Cath Placed During This Visit: yes Reason for Continuing Indwelling Catheter: Accurate Measurement of Urinary Output in Critically Ill Patients Urinary Catheter Date of Insertion: 04/18/24 Data 04/20/24 04:17 04/20/24 04:17 Other data: Echo complete CONCLUSIONS Normal left ventricular size, systolic function and wall thickness, with no regional wall motion abnormalities. Left ventricular ejection fraction is estimated at 60 %. Grade II/IV diastolic dysfunction, moderately elevated filling pressures. Moderate aortic valve calcification. Mild aortic valve stenosis, mean gradient 4.4 mmHg, ESTRELLITA 1.7 cm squared. Trace aortic valve regurgitation. There is no pericardial effusion. Right atrial pressure is around 5 mm of mercury. 2017 left heart cath Left circumflex has luminal irregularities without significant stenosis RCA has luminal irregularities without significant stenosis Mildly reduced left ventricular function 50% with distal anterior and apical hypokinesis LVEDP moderately elevated A&P Assessment and plan (1) HTN (hypertension): Continue carvedilol 12.5 MG BID Qualifiers: Hypertension type: primary hypertension Qualified Code(s): I10 - Essential (primary) hypertension (2) Mixed hyperlipidemia: Continue atorvastatin 20 mg daily (3) Status epilepticus: Per hospitalist and neurology team (4) Elevated troponin: Troponin elevation could be due to demand ischemia from seizures Plan The plan for this very pleasant 63 year old female is to perform a stress test to rule out any coronary ischemia given patient's risk factors and elevated troponin with EKG changes. At this time, she is asymptomatic. Will order today. Once this is read, further recommendations to be made. Thank you, Dr. Madsen, for allowing us to care for this very pleasant patient. PDMP PDMP Reviewed: Not Reviewed Coding Level of Care Code 69872 Diagnoses Primary hypertension I10 Hypertension type: primary hypertension Mixed hyperlipidemia E78.2 Status epilepticus G40.901 Elevated troponin R79.89 Documented by User: Ann Abrams MD 04/20/24 21:09 Medications/Allergies Home Medications ?Medication ?Instructions ?Recorded ?Confirmed ?Last Taken ?Type clonidine HCl 0.1 mg tablet 0.1 mg PO TID HTN #90 tabs 04/12/23 04/18/24 Unknown Rx dextroamphetamine sulfate 10 mg 20 mg PO TID 04/12/23 04/18/24 Unknown History tablet (Zenzedi) Ventolin HFA 90 mcg/actuation 2 puff inhalation Q6H MS N 08/28/23 04/18/24 Unknown Rx aerosol inhaler (albuterol sulfate) shortness of breat h or wheezing #18 grams docusate sodium 250 mg capsule 250 mg PO DAILY PRN con stipation 08/28/23 04/18/24 Unknown Rx (DSS) 90 days #90 caps levocetirizine 5 mg tablet (Xyzal) 5 mg PO .QHS #90 ta bs 08/28/23 04/18/24 Unknown Rx levothyroxine 200 mcg capsule 200 mcg PO DAILY 90 days #90 caps 08/28/23 04/18/24 Unknown Rx levothyroxine 50 mcg capsule 50 mcg PO DAILY 90 days # 90 caps 08/28/23 04/18/24 Unknown Rx ropinirole 5 mg tablet 5 mg PO DAILY 90 days #90 ta bs 08/28/23 04/18/24 Unknown Rx venlafaxine 75 mg capsule,extended 75 mg PO BID 30 day s #60 caps 08/28/23 04/18/24 Unknown Rx release 24 hr atorvastatin 20 mg tablet 20 mg PO DAILY 30 days #30 t abs 09/30/23 04/18/24 Unknown Rx carvedilol 12.5 mg tablet 12.5 mg PO BID 30 days #60 t abs 09/30/23 04/18/24 Unknown Rx cholecalciferol (vitamin D3) 50 50 mcg PO DAILY 90 day s #90 caps 09/30/23 04/18/24 Unknown Rx mcg (2,000 unit) capsule hydrochlorothiazide 25 mg tablet 25 mg PO QAM 30 days #30 tabs 09/30/23 04/18/24 Unknown Rx lisinopril 10 mg tablet 10 mg PO DAILY 30 days #30 t abs 09/30/23 04/18/24 Unknown Rx meloxicam 15 mg tablet 15 mg PO DAILY 30 days #30 t abs 09/30/23 04/18/24 Unknown Rx fluticasone 250 mcg-salmeterol 50 1 inh inhalation Q12 H #60 ea 10/30/23 04/18/24 Unknown Rx mcg/dose blistr powdr for inhalation (Advair Diskus) tiotropium bromide 18 mcg capsule 1 cap inhalation AYESHA LY #30 10/30/23 04/18/24 Unknown Rx with inhalation device (Spiriva inhalations with HandiHaler) gabapentin 800 mg tablet 800 mg PO .COMPLEX 10/31/23 04/18/24 Unknown History tramadol 50 mg tablet 50 mg PO TID PRN pain 30 day s #90 10/31/23 04/18/24 Unknown Rx tabs pantoprazole 40 mg tablet,delayed 40 mg PO QAM 5 04/18/24 Unknown History release umeclidinium 62.5 mcg-vilanterol 1 ea inhalation DAILY 04/18/24 04/18/24 Unknown History 25 mcg/actuation powdr for inhalation (Anoro Ellipta) Allergies Allergy/AdvReac Type Severity Reaction Status Date / Time egg Allergy Severe ADR-Muscle Verified 01/21/24 11:39 Pain cefuroxime (From Zinacef) Allergy ALGY-Redness Verified 10/31/23 14:14 of Skin ciprofloxacin Allergy ALGY-Redness Verified 10/31/23 14:14 of Skin povidone-iodine (From Allergy ALGY-Rash Verified 10/31/23 14:14 Betadine) soap (From Betadine) Allergy ALGY-Rash Verified 10/31/23 14:14 PFSH Acute 2 PFSH: Medical History (Updated 04/20/24 @ 15:57 by Heather Pedroza NP) Chronic migraine without aura, intractable, with status migrainosus PRES (posterior reversible encephalopathy syndrome) Narcolepsy and cataplexy Anxiety and depression Surgical History H/O tubal ligation Family History Father Cancer Stroke Mother Clotting disorder Lung disease Grandfather Diabetes Grandmother Diabetes Son Suicide Denies family history of CAD (coronary artery disease) Dementia Hyperlipidemia Psychiatric illness Chronic kidney disease (CKD) Anesthesia complication Bleeding disorder Family history of premature coronary artery disease Hypertension Social History Smoking and tobacco/nicotine status: never used tobacco/nicotine Alcohol intake: never Substance/Drug Use: never Physical Exam 2 Urinary Catheter Management: Silva: Cath Placed During This Visit: yes Data 04/20/24 04:17 04/20/24 04:17 A&P Assessment and plan (1) HTN (hypertension): Qualifiers: Hypertension type: primary hypertension Qualified Code(s): I10 - Essential (primary) hypertension (2) Mixed hyperlipidemia: (3) Status epilepticus: (4) Elevated troponin: Troponin elevation could be due to demand ischemia from seizures . In view of the abnormal EKG and multiple risk factors possibility of underlying coronary ischemia causing this also is a consideration. To further evaluate the patient's coronary status, a Myocardial perfusion imaging would be appropriate. Plan The plan for this very pleasant 63 year old female is to perform a stress test to rule out any coronary ischemia given patient's risk factors and elevated troponin with EKG changes. At this time, she is asymptomatic. Will order today. Once this is read, further recommendations to be made. Thank you, Dr. Madsen, for allowing us to care for this very pleasant patient. I reviewed the patient's history and examination. At this point, it was thought to be appropriate to go ahead with the Myocardial perfusion imaging to decide on further management PDMP PDMP Reviewed: Not Reviewed Coding Level of Care Code 81591 Diagnoses Primary hypertension I10 Hypertension type: primary hypertension Mixed hyperlipidemia E78.2 Status epilepticus G40.901 Elevated troponin R79.89
--- NOTE | 2024-04-20 16:37 | ECG_ITS ---
Intelligize Test Date: 2024-04-21 Pat Name: Kamala Srivastava Department: Room: ICU11 Gender: Female Electoral Officer: : 1960 Requested By: Heather Pedroza Order Number: [id number] Indra MD: Ann Abrams M.D. Interpretive Statements Lung unchanged pre/post procedure; Intraprocedure shortess of breath; Symptoms resoled by discharge PROCEDURE: At the baseline, the EKG revealed normal sinus rhythm with a rate of 68 bpm. Left axis deviation. Poor R wave progression. Possible old septal CT. Some nonspecific T wave changes. The baseline heart was 60 bpm with a blood pressue of 178/100 mm of Hg Lexiscan was infused over a period of 20 seconds. A total of 0.4 milligrams of Lexiscan was infused. The stress phase was continued for a total of 5 minutes. Heart rate at the end of the stress phase was 76 bpm with a blood pressure 182/89 mm of Hg. The EKG at the peak infusion revealed no significant changes. Sestamibi was injected 20 seconds after the Lexiscan infusion. Heart rate at the end of the recovery phase was 81 bpm with a blood pressure of 188/80 mm of Hg. CONCLUSION: 1. No significant EKG changes with the LexiScan infusion 2. No LexiScan induced chest pain or cardiac arrhythmia 3. Normal blood pressure and heart rate response 4. Sestamibi/sestamibi perfusion scan pending; see separate report. Electronically Signed On 04-27-2024 07:01:52 INSURANCE BILLING SPECIALIST by Ann Abrams M.D. [email or web address]
[2024-04-20 23:05] LABS: Glucose Point of Care 102 mg/dL (70-110)
[2024-04-21] VITALS (49 sets, daily range): BP systolic 103–189; BP diastolic 72–116; PULSE 56–81; RESP 16–17; TEMP 36.4–36.9; O2SAT 87–98
[2024-04-21] MEDS: levETIRAcetam 500 MG/100 ML PREMIX 400 MG IV (01:05)
[2024-04-21] MEDS: thiamine 100 mg/mL 2mL SDV IVP ×2 (01:05→14:08)
[2024-04-21] MEDS: ipratropium-albuterol 3 mL Neb INHALATION ×4 (03:06→19:57)
[2024-04-21 05:32] LABS: Basophils # 0.1 10^3/uL (0.0-0.1); Basophils % 1.1 %; Eosinophils # 0.3 10^3/uL (0.0-0.8); Eosinophils % 3.3 %; Hematocrit 39.8 % (36-47); Lymphocytes # 0.8 10^3/uL (0.8-4.8); Mean Corpuscular HGB Conc 31.4 g/dL (30-55); Mean Corpuscular Hemoglobin 30.4 pg (27-33); Mean Corpuscular Volume 96.8 fl (85-98); Monocytes # 0.8 10^3/uL (0.2-0.9); Monocytes % 9.3 %; Neutrophils # 6.81 10^3/uL (1.8-7.7); Nucleated Red Blood Cells % 0 %; Platelet Count 310 10^3/cmm (157-399); Red Blood Count 4.11 10^6/uL (3.85-5.65); Red Cell Distribution Width 13.6 % (12.1-15.1); White Blood Count 8.85 10^3/uL (3.29-11.43)
[2024-04-21 05:56] LABS: Anion Gap 16.4 (5-19); Blood Urea Nitrogen 15 mg/dL (8-23); Calcium 9.7 mg/dL (8.5-10.5); Carbon Dioxide 33 mmol/L (22-29); Chloride 93 mmol/L (98-107); Creatinine Clr Calc Pharmacy 58.5355; Glomerular Filtration Rate 63.4 mL/min (90-130); Glucose 83 mg/dL (65-115); Magnesium 1.9 mg/dL (1.7-2.3); Osmolality Calculated 288 mOsm/kg (285-295); Potassium 3.4 mmol/L (3.5-5.1); Sodium 139 mmol/L (136-145)
[2024-04-21] MEDS: FUROsemide 10 mg/mL SDV 4mL 40 MG IVP ×2 (06:04→17:40)
[2024-04-21] MEDS: levothyroxine 125 mcg Tablet PO (06:05)
[2024-04-21] MEDS: levothyroxine 100 mcg Tablet PO (06:05)
[2024-04-21] MEDS: regadenoson 0.4 Mg/5 ml Syringe IVP (07:39)
[2024-04-21] MEDS: aspirin 81 mg EC Tablet PO (08:55)
[2024-04-21] MEDS: potassium chloride ER 20 mEq Tablet 40 MEQ PO ×2 (08:55→14:09)
[2024-04-21] MEDS: atorvastatin 40 mg Tablet 20 MG PO (08:55)
[2024-04-21] MEDS: venlafaxine ER (24HR) 75 mg Capsule PO ×2 (08:55→17:40)
[2024-04-21] MEDS: pantoprazole 40 mg SDV IVP ×2 (08:56→17:11)
[2024-04-21] MEDS: carvedilol 12.5 mg Tablet PO ×2 (08:56→17:40)
--- NOTE | 2024-04-21 08:59 | PC.NURSE ---
Patient left for stress test at [address] Madsen ordered 40meq of potassium PO at 0714. Patient returned to ICU at 0845. One time order of potassium PO missed due to patient being off unit. Dr. Madsen rounding discussing POC at 0850, This nurse and Assignment Editor student asked about missed potassium order, Dr. Madsen gave verbal orders to retime one time potassium order at 0714 to 6 hours from now which is 1500. Order placed.
[2024-04-21] MEDS: budesonide 0.5 mg/2 mL Neb INHALATION ×2 (09:15→19:57)
--- NOTE | 2024-04-21 10:32 | P.PN_ITS ---
Subjective 2 Subjective: Seen this morning. Patient is much more awake alert this morning. He states she is doing well. When asked about chest pain she states she has been having some but was not able to give me many details about it. She states she is not sure. Patient does have mild to moderate cognitive impairment. Underwent stress test this morning. Results are pending at this time. Vitals/I&O/Wt Last Vital Signs Temp 98.4 F 04/21/24 09:00 Pulse 63 04/21/24 09:16 Resp 17 04/21/24 09:16 BP 174/104 04/21/24 09:00 Pulse Ox 93 04/21/24 09:16 O2 Del Method Room Air 04/21/24 09:16 O2 Flow Rate 2 04/20/24 21:34 FiO2 35 04/19/24 10:16 04/20/24 04/21/24 04/21/24 22:59 06:59 14:59 Intake Total 120 / 700 100 / 800 600 / 600 Output Total 1100 / 2900 1900 / 4800 Balance -980 / -2200 -1800 / -4000 600 / 600 Weight last 48 hrs Weight 71 kg Weight 74.778 kg Physical Exam 2 Narrative: General: restless, AO x3, HEENT: PERRLA, pupils bilaterally equal and reactive, pallors not present Chest: Normal vesicular breath sounds, no added sounds, equal good air entry bilaterally CVS: S1-S2 regular, no murmurs, no tachycardia, no gallops, no rubs Abdomen: Soft, nontender, bowel sounds present Neuro: No focal deficits, no facial deformity, AO x3, Urinary Catheter Management: Silva: Cath Placed During This Visit: yes Reason for Continuing Indwelling Catheter: Accurate Measurement of Urinary Output in Critically Ill Patients Urinary Catheter Date of Insertion: 04/18/24 Data 04/21/24 05:02 04/21/24 05:02 A&P Assessment and plan (1) Status epilepticus: (2) Acidosis, metabolic, with respiratory acidosis: (3) Anemia: (4) Seizure: (5) Chronic migraine without aura, intractable, with status migrainosus: (6) Asthma-COPD overlap syndrome: (7) Acute respiratory failure with hypoxia and hypercapnia: Plan Status epilepticus Patient had 3 seizures within 2 hours Concern for polypharmacy, patient takes Adderall, medications for her fibromyalgia, amitriptyline, gabapentin She was intubated by the ER physician Currently on propofol I will put her on Keppra She does not take any antibiotics Patient is afebrile Request EKG Mixed respiratory and metabolic acidosis high lactic acid related seizure Repeat ABG in an hour Respiratory failure Patient got intubated for airway protection Wean off propofol in next 8 to 12 hours, plan to extubate after 12 hours if she is able to follow commands CT head unremarkable Afebrile I would keep meningitis in my differentials as well Aspiration pneumonia: Patient is afebrile, we will put her on Zosyn Narcolepsy/fibromyalgia/migraine Patient takes Adderall at home History of hypothyroidism: Continue levothyroxine GI protection: Protonix N.p.o. diet DVT prophylaxis heparin High BNP clinically patient does not look fluid overloaded continue normal saline for now Patient is not diabetic Full code April 19, 2024 Patient was successfully extubated today. She was previously intubated due to concern for respiratory distress as a result of status epilepticus, acute hypoxic and hypercapnic respiratory failure. ABG much improved this morning, successfully extubated. Patient is restless however alert awake and oriented x 3. Will attempt to wean down on Precedex and discontinue. Chest is currently clear to auscultation. Start DuoNeb every 6 hours inhalation along with budesonide to replace her inhalers that she takes on a daily basis. Continue Keppra 500 mg every 12 hours and monitor for any further recurrence of seizures. Troponins upon admission baseline at 22, 2 hours at 70, 6 hours at 53 with positive delta is at 2 and 6-hour. There were no acute ST-T wave changes on review of EKG. echocardiogram showing normal LVEF of 60%, systolic function and wall thickness without any regional wall motion abnormalities. Moderate aortic valve calcification and mild aortic valve stenosis noted. Favor elevated troponins to be related to type II MA from seizure, aortic valve stenosis. May need to consider a stress test prior to discharge if patient remains seizure-free. CT of the chest abdomen and pelvis was without any acute signs of pneumonia or other abdominal pathology. Urine analysis with negative nitrate, negative leukocyte Estrace, no WBCs. Blood culture negative to date. Discontinue IV piperacillin/tazobactam as no localizing signs or symptoms of infection at this time.Closely monitor in the ICU today 04/20/2024 Seen this morning. Patient was extubated yesterday. Has been seizure-free. She is requiring 5 L of cannula. Echo does show grade 3 x 4 diastolic dysfunction. Will repeat chest x-ray today. Will order Lasix 40 IV x 1. She is requiring 5 L nasal cannula at this time. Patient appears quite weak. Will check PT OT. Monitor off antibiotics at this time. Cardiology consulted. Troponins were elevated. Will await further recommendations. Will switch to oral Keppra today. Transfer to [facility]. If remains stable by tomorrow may be able to discharge as long as oxygenation status is addressed. Patient is 2800 cc positive since admission. Will check BNP. 04/21/2024 Seen this morning. Patient underwent a stress test. Results are pending Patient on Lasix 40 IV twice daily, replete potassium. Patient is and diastolic heart failure. Patient is now on room air. Continue Lasix 40 IV daily. Cardiology consulted. Also stress test are pending at this time. Switch to oral Keppra. PT OT assessment. Patient may require rehab. If patient does well with PT may consider discharge home after cardiology recommendations. Transfer to [facility] today. PDMP PDMP Reviewed: Not Reviewed Attestations 2 Medical Necessity Statement*: Awaiting stress test results. Diagnoses Status epilepticus G40.901 Acidosis, metabolic, with respiratory acidosis E87.4 Anemia D64.9 Seizure R56.9 Chronic migraine without aura, intractable, with status migrainosus G43.711 Asthma-COPD overlap syndrome J44.89 Acute respiratory failure with hypoxia and hypercapnia J96.01; J96.02
[2024-04-21 10:55] LABS: Levetiracetam Immunoassy 22.6 mcg/mL (6.0-46.0)
--- NOTE | 2024-04-21 12:49 | PM.PN ---
Subjective Subjective: Patient had a Myocardial perfusion imaging today. She was found to have a small area of ischemia in the apical inferior wall region. According the patient, she has no chest pain at this point. She had some episodes of chest pain before coming to the hospital. Medications: Medication Review Details: Current Medications Acetaminophen (Acetaminophen 500 Mg Tablet) 500 mg PO Q4H PRN PRN Reason: fever Albuterol/Ipratropium (Ipratropium-Albuterol 3 Ml Neb) 3 ml INHALATION Q6H.RESP AARON Last Admin: 04/21/24 09:15 Dose: 3 ml Aminophylline (Aminophylline 25 Mg/Ml Sdv 20 Ml) 25 mg IVP Q2M PRN PRN Reason: see dose instructions Stop: 04/22/24 06:41 Aspirin (Aspirin 81 Mg Ec Tablet) 81 mg PO DAILY [facility] Last Admin: 04/21/24 08:55 Dose: 81 mg Atorvastatin Calcium (Atorvastatin 40 Mg Tablet) 20 mg PO DAILY [facility] Last Admin: 04/21/24 08:55 Dose: 20 mg Budesonide (Budesonide 0.5 Mg/2 Ml Neb) 0.5 mg INHALATION BID.RESPIRATORY [facility] Last Admin: 04/21/24 09:15 Dose: 0.5 mg Carvedilol (Carvedilol 12.5 Mg Tablet) 12.5 mg PO BID [facility] Last Admin: 04/21/24 08:56 Dose: 12.5 mg Furosemide (Furosemide 10 Mg/Ml Sdv 4ml) 40 mg IVP Q12H [facility] Last Admin: 04/21/24 06:04 Dose: 40 mg Lanolin (Lanolin Oint 7 Gm) 1 applic TOPICAL PRN PRN PRN Reason: DRYNESS Levetiracetam (Levetiracetam 500 Mg Tablet) 500 mg PO BID [facility] Levothyroxine Sodium (Levothyroxine 100 Mcg Tablet) 100 mcg PO QAM [facility] Last Admin: 04/21/24 06:05 Dose: 100 mcg Levothyroxine Sodium (Levothyroxine 125 Mcg Tablet) 125 mcg PO QAM [facility] Last Admin: 04/21/24 06:05 Dose: 125 mcg Nitroglycerin (Nitroglycerin 0.4 Mg Sublingual Tablet) 0.4 mg SUBLINGUAL Q5M PRN PRN Reason: CHEST PAIN Stop: 04/22/24 06:41 Ondansetron HCl (Ondansetron 2 Mg/Ml Sdv 2 Ml) 4 mg IVP Q6H PRN PRN Reason: NAUSEA AND VOMITING Ondansetron HCl (Ondansetron 2 Mg/Ml Sdv 2 Ml) 4 mg IVP Q2M PRN PRN Reason: NAUSEA Pantoprazole Sodium (Pantoprazole 40 Mg Sdv) 40 mg IVP BID [facility] Last Admin: 04/21/24 08:56 Dose: 40 mg Potassium Chloride (Potassium Chloride Er 20 Meq Tablet) 40 meq PO DAILY [facility] Last Admin: 04/21/24 08:55 Dose: 40 meq Potassium Chloride (Potassium Chloride Er 20 Meq Tablet) 40 meq PO ONCE ONE Stop: 04/21/24 15:01 Thiamine HCl (Thiamine 100 Mg/Ml 2ml Sdv) 100 mg IVP Q12H [facility] Last Admin: 04/21/24 01:05 Dose: 100 mg Venlafaxine HCl (Venlafaxine Er (24hr) 75 Mg Capsule) 75 mg PO BID [facility] Last Admin: 04/21/24 08:55 Dose: 75 mg Vitals/I&O/Wt Last Vital Signs Temp 98.4 F 04/21/24 09:00 Pulse 63 04/21/24 12:30 Resp 17 04/21/24 09:16 BP 144/96 04/21/24 12:30 Pulse Ox 91 04/21/24 12:30 O2 Del Method Room Air 04/21/24 09:16 O2 Flow Rate 2 04/20/24 21:34 FiO2 35 04/19/24 10:16 04/20/24 04/21/24 04/21/24 22:59 06:59 14:59 Intake Total 120 / 700 100 / 800 600 / 600 Output Total 1100 / 2900 1900 / 4800 Balance -980 / -2200 -1800 / -4000 600 / 600 Weight last 48 hrs Weight 156 lb 8.451 oz Weight 164 lb 13.732 oz Physical Exam Urinary Catheter Management: Silva: Cath Placed During This Visit: yes Reason for Continuing Indwelling Catheter: Accurate Measurement of Urinary Output in Critically Ill Patients Urinary Catheter Date of Insertion: 04/18/24 Data 04/21/24 05:02 04/21/24 05:02 Other Labs: Laboratory Last Values WBC 8.85 10^3/uL (3.29-11.43) 04/21/24 05:02 RBC 4.11 10^6/uL (3.85-5.65) 04/21/24 05:02 Hgb 12.50 g/dL (11.27-16.99) 04/21/24 05:02 Hct 39.8 % (36-47) 04/21/24 05:02 MCV 96.8 fl (85-98) 04/21/24 05:02 MCH 30.4 pg (27-33) 04/21/24 05:02 MCHC 31.4 g/dL (30-55) 04/21/24 05:02 RDW 13.6 % (12.1-15.1) 04/21/24 05:02 Plt Count 310 10^3/cmm (157-399) 04/21/24 05:02 MPV 10.0 fL (7.4-10.4) 04/21/24 05:02 Neut % (Auto) 77.0 % 04/21/24 05:02 Lymph % (Auto) 9.0 % 04/21/24 05:02 [place] % (Auto) 9.3 % 04/21/24 05:02 Eos % (Auto) 3.3 % 04/21/24 05:02 Baso % (Auto) 1.1 % 04/21/24 05:02 Neut # (Auto) 6.81 10^3/uL (1.8-7.7) 04/21/24 05:02 Lymph # (Auto) 0.8 10^3/uL (0.8-4.8) 04/21/24 05:02 [place] # (Auto) 0.8 10^3/uL (0.2-0.9) 04/21/24 05:02 Eos # (Auto) 0.3 10^3/uL (0.0-0.8) 04/21/24 05:02 Baso # (Auto) 0.1 10^3/uL (0.0-0.1) 04/21/24 05:02 Nucleated RBC % (auto) 0 % 04/21/24 05:02 Nucleated RBCs # 0.0 /100WBC 04/21/24 05:02 PT 14.00 SECONDS (12.1-14.9) 04/18/24 00:00 INR 1.01 (0.8-1.2) 04/18/24 00:00 Specimen Type Arterial 04/18/24 05:00 Sample Site Radial, right 04/18/24 05:00 ABG pH 7.34 (7.35-7.45) L 04/18/24 05:00 ABG pCO2 48.9 mmHg (35-45) H 04/18/24 05:00 ABG pO2 157.0 mmHg (80.0-100.0) H 04/18/24 05:00 ABG PO2/FiO2 Ratio 224 04/18/24 05:00 ABG HCO3 26.3 mmol/L (22-26) H 04/18/24 05:00 ABG O2 Saturation > 99.1 04/18/24 05:00 ABG Base Excess -0.3 mmol/L (-2.0-2.0) 04/18/24 05:00 John Test Pos 04/18/24 05:00 A-a O2 Gradient 35.9 mmHg (5-10) H 04/18/24 05:00 Hematocrit 49.5 % (37-47) H 04/18/24 05:00 Hgb O2 Saturation 97.3 % (95-100) 04/18/24 05:00 Carboxyhemoglobin 0.7 %THgb (0.4-20.1) 04/18/24 05:00 Methemoglobin 1.3 % (0.4-1.5) 04/18/24 05:00 Total Hemoglobin 16.1 g/dL (12-16) H 04/18/24 05:00 Sodium 140.0 mmol/L (131-143) 04/18/24 05:00 Potassium 3.7 mmol/L (3.5-5.0) 04/18/24 05:00 Glucose 117.0 mg/dL (70-115) H 04/18/24 05:00 Ionized Calcium 1.1 mmol/L (1.1-1.4) 04/18/24 05:00 O2 Delivery Device Vent 04/18/24 05:00 FiO2 70.0 % 04/18/24 05:00 Tidal Volume 0.35 04/18/24 05:00 PEEP 5.0 cmH20 04/18/24 05:00 Clearance Center Manager ID [id number] 04/18/24 05:00 Sodium 139 mmol/L (136-145) 04/21/24 05:02 Potassium 3.4 mmol/L (3.5-5.1) L 04/21/24 05:02 Chloride 93 mmol/L (98-107) L 04/21/24 05:02 Carbon Dioxide 33 mmol/L (22-29) H 04/21/24 05:02 Anion Gap 16.4 (5-19) 04/21/24 05:02 BUN 15 mg/dL (8-23) 04/21/24 05:02 Creatinine 0.9 mg/dL (0.5-0.9) 04/21/24 05:02 GFR Calculation 63.4 mL/min (90-130) L 04/21/24 05:02 Glucose 83 mg/dL (65-115) 04/21/24 05:02 POC Glucose 102 mg/dL (70-110) 04/20/24 23:01 Calculated Osmolality 288 mOsm/kg (285-295) 04/21/24 05:02 Lactic Acid 20.9 mmol/L (0.5-2.2) H* 04/18/24 00:00 Lactic Acid (Sepsis) 1.2 mmol/L (0.5-2.2) 04/18/24 10:13 Calcium 9.7 mg/dL (8.5-10.5) 04/21/24 05:02 Phosphorus 4.2 mg/dL (2.5-4.5) 04/18/24 10:13 Magnesium 1.9 mg/dL (1.7-2.3) 04/21/24 05:02 Total Bilirubin 0.8 mg/dL (0.15-1.2) 04/20/24 04:17 AST 26 U/L (0-32) 04/20/24 04:17 ALT 28 U/L (0-33) 04/20/24 04:17 Alkaline Phosphatase 81 U/L (35-105) 04/20/24 04:17 Creatine Kinase 151 U/L (26-192) 04/18/24 00:00 Troponin T Baseline 22 ng/L (0-10) H 04/18/24 00:00 Troponin T 120 Minute 70.23 ng/L (0-10) H 04/18/24 01:59 Delta Troponin T 48.23 ABS# (0-10) H* 04/18/24 01:59 Troponin T Hi Sens 6Hr 53.89 ng/L (0-10) H 04/18/24 10:13 Troponin T Hi Sens 6Hr Delta 31.89 ng/L (0-12) H* 04/18/24 10:13 C-Reactive Protein 10.5 mg/L (0.0-4.9) H 04/18/24 10:13 NT-Pro-B Natriuret Pep Cancelled 04/20/24 12:45 Total Protein 6.7 g/dL (6.6-8.7) 04/20/24 04:17 Albumin 3.6 g/dL (3.5-5.2) 04/20/24 04:17 Globulin 3.1 g/dL (1.3-4.6) 04/20/24 04:17 Vitamin B12 393 pg/mL (232-1245) 04/18/24 00:00 Procalcitonin 0.07 ng/mL (0-0.5) 04/18/24 00:00 TSH 14.11 uIU/mL (0.27-4.20) H 04/18/24 10:13 Free T4 0.74 ng/dL (0.82-1.77) L 04/19/24 03:57 Free T3 1.0 PG/ML (2.0-4.4) L 04/19/24 03:57 Prolactin 85.75 ng/mL (4.8-23.3) H 04/18/24 00:00 Urine Color Yellow (Yellow) 04/18/24 02:04 Urine Appearance Cloudy (CLEAR) A 04/18/24 02:04 Urine pH 5.5 (5-7) 04/18/24 02:04 Ur Specific [place] 1.022 (1.005-1.030) 04/18/24 02:04 Urine Protein 4+ (Negative) A 04/18/24 02:04 Urine Glucose (UA) Trace (Normal) H 04/18/24 02:04 Urine Ketones Negative (Negative) 04/18/24 02:04 Urine Blood 2+ (Negative) A 04/18/24 02:04 Urine Nitrate Negative (Negative) 04/18/24 02:04 Urine Bilirubin Negative (Negative) 04/18/24 02:04 Urine Urobilinogen 1.0 mg/dL (Negative) 04/18/24 02:04 Ur Leukocyte Esterase Negative (Negative) 04/18/24 02:04 Urine RBC 3-5 /hpf (0-2) 04/18/24 02:04 Urine WBC 0-5 /hpf (0-5) 04/18/24 02:04 Ur Squamous Epith Cells 6-10 /hpf (0-5) 04/18/24 02:04 Amorphous Sediment Not Reportable 04/18/24 02:04 Urine Bacteria 1+ /hpf (NONE) H 04/18/24 02:04 Hyaline Casts 71.16 /lpf 04/18/24 02:04 Salicylates < 0.3 mg/dL (3-10) L 04/18/24 00:00 Urine Opiates Screen Negative ng/mL (Negative) 04/18/24 02:04 Acetaminophen < 5.0 ug/mL (10-30) L 04/18/24 00:00 Ur Barbiturates Screen Negative ng/mL (Negative) 04/18/24 02:04 Levetiracetam 22.6 mcg/mL (6.0-46.0) 04/19/24 10:09 Ur Phencyclidine Scrn Negative ng/mL (Negative) 04/18/24 02:04 Ur Amphetamines Screen Positive ng/mL (Negative) H 04/18/24 02:04 U Benzodiazepines Scrn Negative ng/mL (Negative) 04/18/24 02:04 Urine Cocaine Screen Negative ng/mL (Negative) 04/18/24 02:04 U Marijuana (THC) Screen Positive ng/mL (Negative) H 04/18/24 02:04 Ethyl Alcohol < 10 mg/dL (0-10) 04/18/24 00:00 Coronavirus (PCR) Negative (Negative) 04/18/24 00:09 Influenza A (PCR) Negative (Negative) 04/18/24 00:09 Influenza Type B (PCR) Negative (Negative) 04/18/24 00:09 RSV (PCR) Negative (Negative) 04/18/24 00:09 Other data: 1. Myocardial perfusion imaging revealing a small area of reversible defect involving the apical inferior wall region, suggesting ischemia in the distribution of the right coronary artery 2. Normal LV ejection fraction of 62%. 3. LV wall motion analysis revealing no gross wall motion abnormalities. 4. Normal LV volume No similar previous studies are available for comparison Cardiac catheterization report from 2017 Procedure Summary #1 Left main has luminal irregularities #2 LAD has luminal irregularities without significant stenosis #3 LCx has luminal irregularities without significant stenosis #4 RCA has luminal irregularities without significant stenosis #5 LVEDP is moderately elevated #6 Mildly reduced left ventricular function 50% with distal anterior and apical hypokinesis A&P Assessment and plan (1) Elevated troponin: Troponin elevation could be due to demand ischemia from seizures . In view of the abnormal EKG and multiple risk factors possibility of underlying coronary ischemia causing this also is a consideration. Patient apparently had similar EKG changes in the past. She also had a cardiac arrest in 2017 which was essentially unremarkable. The current stress test results were discussed with the patient. The area of ischemia appears to be small. Noted to further evaluate the coronary status, she requires a cardiac catheterization. However in the absence of any chest pain and also because of the small area of ischemia, it was thought to be appropriate to continue medical treatment at this point. So a shared decision was made not to undergo any invasive procedures at this point. Patient and the family understands this well. The implications were discussed in detail. (2) HTN (hypertension): For better control of the blood pressure, I may add lisinopril 10 mg p.o. daily in addition to current medications. Her blood pressure needs to be closely monitored. Qualifiers: Hypertension type: primary hypertension Qualified Code(s): I10 - Essential (primary) hypertension (3) Mixed hyperlipidemia: Continue atorvastatin 20 mg daily (4) Status epilepticus: Patient has not had any recurrence of seizure activity since hospital admission. Evaluation and management as per the primary/neurology service Plan Lisinopril 10 mg p.o. daily continue other medications as it is. PDMP PDMP Reviewed: Not Reviewed Attestations Medical Necessity Statement*: Disposition as per the primary attending Coding Level of Care Code 13601 Diagnoses Elevated troponin R79.89 Primary hypertension I10 Hypertension type: primary hypertension Mixed hyperlipidemia E78.2 Status epilepticus G40.901
--- NOTE | 2024-04-21 16:37 | NMCV_ITS ---
NM efrain perf SPECT r/s* [id number] Kamala Srivastava Age: 63 Gender: F : 1960 Exam Date: 04/21/2024 16:37 Ordering Phys: Heather Pedroza NP Technologist: ALVARADO Stovall Exam Location: [facility] Indications: cp STRESS TEST [facility] IMAGE PROTOCOL Rest/Stress 1 Lexiscan Day Radiopharmaceutical Dose (mCi) Administration Site Administered by Rest: Tc-99m 11 IV Sandhya Velia, REPLANTER Sestamibi Stress:Tc-99m 33 IV Sandhya Velia, REPLANTER Sestamibi Rest: 21-Apr-2024 60 Discovery 630 Stress: 21-Apr-2024 30 Discovery 630 0.4mg Lexiscan. Images obtained in supine and prone position. SPECT RESULTS Technical Quality: Good Raw Data Analysis: Normal Image Corrections: No attenuation or motion correction applied Summed Stress Score: 2 Summed Rest Score: 0 Summed Difference Score: 2 PERFUSION FINDINGS As small area of moderately decreased tracer uptake in the apical inferior wall region with reversibility FUNCTIONAL RESULTS (calculated via Gated SPECT) Stress Image LV EF (%): 62 Stress EDV (mL):87 TID: 1.13 Stress ESV (mL):33 FUNCTIONAL FINDINGS: Segmental wall motion analysis revealing no gross wall motion abnormalities IMPRESSIONS 1. Myocardial perfusion imaging revealing a small area of reversible defect involving the apical inferior wall region, suggesting ischemia in the distribution of the right coronary artery 2. Normal LV ejection fraction of 62%. 3. LV wall motion analysis revealing no gross wall motion abnormalities. 4. Normal LV volume No similar previous studies are available for comparison Dr Ann Abrams MD FAC (Electronically Signed) Final Date: 21 April 2024 09:31 S
[2024-04-21] MEDS: levETIRAcetam 500 mg Tablet PO (17:11)
[2024-04-21 19:39] LABS: Glucose Point of Care 98 mg/dL (70-110)
[2024-04-21] MEDS: ropinirole 2 mg Tablet 5 MG PO (20:13)
[2024-04-21] MEDS: acetaminophen 500 mg Tablet PO (22:06)
--- NOTE | 2024-04-21 22:07 | PC.NURSE ---
Transfer Patient transferred to [facility] bed 270. All belongings taken with patient. Patient complaining of pain on arrival, passed on complaint to [facility] nurse
[2024-04-21 23:15] LABS: Glucose Point of Care 109 mg/dL (70-110)
[2024-04-22] VITALS (9 sets, daily range): BP systolic 122–159; BP diastolic 53–93; PULSE 60–86; RESP 15–17; TEMP 36.7–37.2; O2SAT 90–96
[2024-04-22] MEDS: ipratropium-albuterol 3 mL Neb INHALATION ×2 (01:17→08:48)
[2024-04-22] MEDS: thiamine 100 mg/mL 2mL SDV IVP ×2 (02:26→14:12)
[2024-04-22 03:32] LABS: Anion Gap 18.7 (5-19); Blood Urea Nitrogen 26 mg/dL (8-23); Calcium 9.7 mg/dL (8.5-10.5); Carbon Dioxide 29 mmol/L (22-29); Chloride 92 mmol/L (98-107); Creatinine Clr Calc Pharmacy 51.2904; Glomerular Filtration Rate 56.2 mL/min (90-130); Glucose 100 mg/dL (65-115); Magnesium 1.9 mg/dL (1.7-2.3); Osmolality Calculated 287 mOsm/kg (285-295); Potassium 3.7 mmol/L (3.5-5.1); Sodium 136 mmol/L (136-145)
[2024-04-22 04:21] LABS: Glucose Point of Care 101 mg/dL (70-110)
[2024-04-22] MEDS: FUROsemide 10 mg/mL SDV 4mL 40 MG IVP (05:56)
[2024-04-22] MEDS: levothyroxine 125 mcg Tablet PO (05:56)
[2024-04-22] MEDS: levothyroxine 100 mcg Tablet PO (05:56)
[2024-04-22] MEDS: potassium chloride ER 20 mEq Tablet 40 MEQ PO (08:47)
[2024-04-22] MEDS: carvedilol 12.5 mg Tablet PO ×2 (08:48→17:26)
[2024-04-22] MEDS: aspirin 81 mg EC Tablet PO (08:48)
[2024-04-22] MEDS: venlafaxine ER (24HR) 75 mg Capsule PO ×2 (08:48→17:26)
[2024-04-22] MEDS: atorvastatin 40 mg Tablet 20 MG PO (08:48)
[2024-04-22] MEDS: budesonide 0.5 mg/2 mL Neb INHALATION (08:48)
[2024-04-22] MEDS: levETIRAcetam 500 mg Tablet PO ×2 (08:48→17:26)
[2024-04-22] MEDS: pantoprazole 40 mg SDV IVP (08:49)
--- NOTE | 2024-04-22 09:33 | P.DS_ITS ---
Discharge Providers Date of Admission: 04/18/24 01:24 Date of Discharge: April 22, 2024 Attending Provider at Admission: Navid Smiley MD Attending Provider at Discharge: Ayah Madsen MD Primary Care Provider: Diogenes Rees MD Diagnoses at Discharge Discharge Diagnosis (1) Elevated troponin: Status: Resolved (2) HTN (hypertension): Status: Acute Qualifiers: Hypertension type: primary hypertension Qualified Code(s): I10 - Essential (primary) hypertension (3) Mixed hyperlipidemia: Status: Acute (4) Status epilepticus: Status: Acute Reason for Visit Reason for Visit: SEIZURE Hospital Course Hospital Course Patient was admitted to the hospital with status epilepticus and was intubated for airway protection. She was extubated the next day. She was seen by neurology during hospitalization and recommended to start on Keppra 500 twice daily to follow-up with neurology as an outpatient. Since extubation patient has been seizure-free. Did not experience any more seizures. Has been chest pain free as well however troponins were mildly elevated and it was thought to be type II IN from seizure. Cardiology was consulted. Patient had a stress test prior to discharge which showed very small area of possible ischemia therefore medical management was recommended at this time. Patient was also found to be in heart failure during hospitalization and was diuresed with IV Las ix. Patient will be discharged home in stable condition at this time. I have stopped Lasix at discharge. She will follow-up with cardiology and primary care doctor as an outpatient. Primary care doctor may consider Lasix 20 oral daily if patient continues to experience fluid overload. She was on room air at time of discharge. Physical Exam 2 Narrative: General: restless, AO x3, HEENT: PERRLA, pupils bilaterally equal and reactive, pallors not present Chest: Normal vesicular breath sounds, no added sounds, equal good air entry bilaterally CVS: S1-S2 regular, no murmurs, no tachycardia, no gallops, no rubs Abdomen: Soft, nontender, bowel sounds present Neuro: No focal deficits, no facial deformity, AO x3, Urinary Catheter Management: Silva: Cath Placed During This Visit: yes Reason for Continuing Indwelling Catheter: Accurate Measurement of Urinary Output in Critically Ill Patients Urinary Catheter Date of Insertion: 04/18/24 Discharge Data Studies Completed and Pending Completed Studies During Hospitalization Category Date Time Status CT chest abdomen pelvis [[place] [address]/[id number] Cat Scan 04/17/24 23:29 Completed ] Stat CT head wo con* [id number] Stat Cat Scan 04/17/24 23:23 Completed Cardiac Stress Test MIBI [Sestamibi Stress Test Request Exams 04/20/24 16:37 Draft ] Routine XR chest 1V portable [id number] Stat Exams 04/17/24 23:23 Completed XR chest 1V portable [id number] Urgent Exams 04/20/24 11:37 Completed NM efrain perf SPECT r/s* [id number] Routine Nuc Med 04/21/24 16:37 Completed CV. echo complete* [id number] Routine Ultrasound 04/18/24 02:30 Completed Pending at discharge Category Date Time Status Blood Culture Stat Lab 04/17/24 00:17 Results Radiology Impressions Head CT 04/17/24 23:23 IMPRESSION: No acute intracranial abnormality. Chest/Abdomen/Pelvis CT 04/17/24 23:29 IMPRESSION: 1. Right mainstem bronchus intubation with resultant volume loss of the left lung and right upper lobe. The right lower lobe and right middle lobe are hyperinflated. 2. Atherosclerosis. 3. Image quality degraded by respiratory motion. IMPRESSION: Image quality is severely degraded by respiratory motion. No definitive acute abnormality. COMMENT: THIS REPORT CONTAINS FINDINGS THAT MAY BE CRITICAL TO PATIENT CARE. The exam findings were verbally communicated by me to Ruel Resendez via telephone conference at 11:57 PM ANVILSMITH on 04/17/2024. The findings were acknowledged and understood. Chest X-Ray 04/20/24 11:37 IMPRESSION: Interval change most compatible with pulmonary edema and atelectasis in the left lung base as above. Laboratory Results WBC 8.85 10^3/uL (3.29-11.43) 04/21/24 05:02 RBC 4.11 10^6/uL (3.85-5.65) 04/21/24 05:02 Hgb 12.50 g/dL (11.27-16.99) 04/21/24 05:02 Hct 39.8 % (36-47) 04/21/24 05:02 MCV 96.8 fl (85-98) 04/21/24 05:02 MCH 30.4 pg (27-33) 04/21/24 05:02 MCHC 31.4 g/dL (30-55) 04/21/24 05:02 RDW 13.6 % (12.1-15.1) 04/21/24 05:02 Plt Count 310 10^3/cmm (157-399) 04/21/24 05:02 MPV 10.0 fL (7.4-10.4) 04/21/24 05:02 Neut % (Auto) 77.0 % 04/21/24 05:02 Lymph % (Auto) 9.0 % 04/21/24 05:02 [place] % (Auto) 9.3 % 04/21/24 05:02 Eos % (Auto) 3.3 % 04/21/24 05:02 Baso % (Auto) 1.1 % 04/21/24 05:02 Neut # (Auto) 6.81 10^3/uL (1.8-7.7) 04/21/24 05:02 Lymph # (Auto) 0.8 10^3/uL (0.8-4.8) 04/21/24 05:02 [place] # (Auto) 0.8 10^3/uL (0.2-0.9) 04/21/24 05:02 Eos # (Auto) 0.3 10^3/uL (0.0-0.8) 04/21/24 05:02 Baso # (Auto) 0.1 10^3/uL (0.0-0.1) 04/21/24 05:02 Nucleated RBC % (auto) 0 % 04/21/24 05:02 Nucleated RBCs # 0.0 /100WBC 04/21/24 05:02 PT 14.00 SECONDS (12.1-14.9) 04/18/24 00:00 INR 1.01 (0.8-1.2) 04/18/24 00:00 Specimen Type Arterial 04/18/24 05:00 Sample Site Radial, right 04/18/24 05:00 ABG pH 7.34 (7.35-7.45) L 04/18/24 05:00 ABG pCO2 48.9 mmHg (35-45) H 04/18/24 05:00 ABG pO2 157.0 mmHg (80.0-100.0) H 04/18/24 05:00 ABG PO2/FiO2 Ratio 224 04/18/24 05:00 ABG HCO3 26.3 mmol/L (22-26) H 04/18/24 05:00 ABG O2 Saturation > 99.1 04/18/24 05:00 ABG Base Excess -0.3 mmol/L (-2.0-2.0) 04/18/24 05:00 John Test Pos 04/18/24 05:00 A-a O2 Gradient 35.9 mmHg (5-10) H 04/18/24 05:00 Hematocrit 49.5 % (37-47) H 04/18/24 05:00 Hgb O2 Saturation 97.3 % (95-100) 04/18/24 05:00 Carboxyhemoglobin 0.7 %THgb (0.4-20.1) 04/18/24 05:00 Methemoglobin 1.3 % (0.4-1.5) 04/18/24 05:00 Total Hemoglobin 16.1 g/dL (12-16) H 04/18/24 05:00 Sodium 140.0 mmol/L (131-143) 04/18/24 05:00 Potassium 3.7 mmol/L (3.5-5.0) 04/18/24 05:00 Glucose 117.0 mg/dL (70-115) H 04/18/24 05:00 Ionized Calcium 1.1 mmol/L (1.1-1.4) 04/18/24 05:00 O2 Delivery Device Vent 04/18/24 05:00 FiO2 70.0 % 04/18/24 05:00 Tidal Volume 0.35 04/18/24 05:00 PEEP 5.0 cmH20 04/18/24 05:00 Solar Installation Manager ID [email or web address] 04/18/24 05:00 Sodium 136 mmol/L (136-145) 04/22/24 02:53 Potassium 3.7 mmol/L (3.5-5.1) 04/22/24 02:53 Chloride 92 mmol/L (98-107) L 04/22/24 02:53 Carbon Dioxide 29 mmol/L (22-29) 04/22/24 02:53 Anion Gap 18.7 (5-19) 04/22/24 02:53 BUN 26 mg/dL (8-23) H 04/22/24 02:53 Creatinine 1.0 mg/dL (0.5-0.9) H 04/22/24 02:53 GFR Calculation 56.2 mL/min (90-130) L 04/22/24 02:53 Glucose 100 mg/dL (65-115) 04/22/24 02:53 POC Glucose 101 mg/dL (70-110) 04/22/24 04:16 Calculated Osmolality 287 mOsm/kg (285-295) 04/22/24 02:53 Lactic Acid 20.9 mmol/L (0.5-2.2) H* 04/18/24 00:00 Lactic Acid (Sepsis) 1.2 mmol/L (0.5-2.2) 04/18/24 10:13 Calcium 9.7 mg/dL (8.5-10.5) 04/22/24 02:53 Phosphorus 4.2 mg/dL (2.5-4.5) 04/18/24 10:13 Magnesium 1.9 mg/dL (1.7-2.3) 04/22/24 02:53 Total Bilirubin 0.8 mg/dL (0.15-1.2) 04/20/24 04:17 AST 26 U/L (0-32) 04/20/24 04:17 ALT 28 U/L (0-33) 04/20/24 04:17 Alkaline Phosphatase 81 U/L (35-105) 04/20/24 04:17 Creatine Kinase 151 U/L (26-192) 04/18/24 00:00 Troponin T Baseline 22 ng/L (0-10) H 04/18/24 00:00 Troponin T 120 Minute 70.23 ng/L (0-10) H 04/18/24 01:59 Delta Troponin T 48.23 ABS# (0-10) H* 04/18/24 01:59 Troponin T Hi Sens 6Hr 53.89 ng/L (0-10) H 04/18/24 10:13 Troponin T Hi Sens 6Hr Delta 31.89 ng/L (0-12) H* 04/18/24 10:13 C-Reactive Protein 10.5 mg/L (0.0-4.9) H 04/18/24 10:13 NT-Pro-B Natriuret Pep Cancelled 04/20/24 12:45 Total Protein 6.7 g/dL (6.6-8.7) 04/20/24 04:17 Albumin 3.6 g/dL (3.5-5.2) 04/20/24 04:17 Globulin 3.1 g/dL (1.3-4.6) 04/20/24 04:17 Vitamin B12 393 pg/mL (232-1245) 04/18/24 00:00 Procalcitonin 0.07 ng/mL (0-0.5) 04/18/24 00:00 TSH 14.11 uIU/mL (0.27-4.20) H 04/18/24 10:13 Free T4 0.74 ng/dL (0.82-1.77) L 04/19/24 03:57 Free T3 1.0 PG/ML (2.0-4.4) L 04/19/24 03:57 Prolactin 85.75 ng/mL (4.8-23.3) H 04/18/24 00:00 Urine Color Yellow (Yellow) 04/18/24 02:04 Urine Appearance Cloudy (CLEAR) A 04/18/24 02:04 Urine pH 5.5 (5-7) 04/18/24 02:04 Ur Specific [place] 1.022 (1.005-1.030) 04/18/24 02:04 Urine Protein 4+ (Negative) A 04/18/24 02:04 Urine Glucose (UA) Trace (Normal) H 04/18/24 02:04 Urine Ketones Negative (Negative) 04/18/24 02:04 Urine Blood 2+ (Negative) A 04/18/24 02:04 Urine Nitrate Negative (Negative) 04/18/24 02:04 Urine Bilirubin Negative (Negative) 04/18/24 02:04 Urine Urobilinogen 1.0 mg/dL (Negative) 04/18/24 02:04 Ur Leukocyte Esterase Negative (Negative) 04/18/24 02:04 Urine RBC 3-5 /hpf (0-2) 04/18/24 02:04 Urine WBC 0-5 /hpf (0-5) 04/18/24 02:04 Ur Squamous Epith Cells 6-10 /hpf (0-5) 04/18/24 02:04 Amorphous Sediment Not Reportable 04/18/24 02:04 Urine Bacteria 1+ /hpf (NONE) H 04/18/24 02:04 Hyaline Casts 71.16 /lpf 04/18/24 02:04 Salicylates < 0.3 mg/dL (3-10) L 04/18/24 00:00 Urine Opiates Screen Negative ng/mL (Negative) 04/18/24 02:04 Acetaminophen < 5.0 ug/mL (10-30) L 04/18/24 00:00 Ur Barbiturates Screen Negative ng/mL (Negative) 04/18/24 02:04 Levetiracetam 22.6 mcg/mL (6.0-46.0) 04/19/24 10:09 Ur Phencyclidine Scrn Negative ng/mL (Negative) 04/18/24 02:04 Ur Amphetamines Screen Positive ng/mL (Negative) H 04/18/24 02:04 U Benzodiazepines Scrn Negative ng/mL (Negative) 04/18/24 02:04 Urine Cocaine Screen Negative ng/mL (Negative) 04/18/24 02:04 U Marijuana (THC) Screen Positive ng/mL (Negative) H 04/18/24 02:04 Ethyl Alcohol < 10 mg/dL (0-10) 04/18/24 00:00 Coronavirus (PCR) Negative (Negative) 04/18/24 00:09 Influenza A (PCR) Negative (Negative) 04/18/24 00:09 Influenza Type B (PCR) Negative (Negative) 04/18/24 00:09 RSV (PCR) Negative (Negative) 04/18/24 00:09 Vitals Last Vital Signs Temp 98.4 F 04/22/24 07:15 Pulse 80 04/22/24 08:51 Resp 16 04/22/24 08:40 BP 139/82 04/22/24 07:15 Pulse Ox 92 04/22/24 08:40 O2 Del Method Room Air 04/22/24 08:40 O2 Flow Rate 2 04/20/24 21:34 FiO2 35 04/19/24 10:16 Discharge Plan Discharge Patient Disposition: Home Condition: Stable Prescriptions: New levetiracetam 500 mg Tablet 500 mg PO BID Qty: 60 0RF aspirin 81 mg Tablet,Delayed Release (Dr/Ec) 81 mg PO DAILY Qty: 30 0RF Continued dextroamphetamine sulfate [Zenzedi] 10 mg tablet 20 mg PO TID levocetirizine [Xyzal] 5 mg tablet 5 mg PO .QHS Qty: 90 1RF ropinirole 5 mg tablet 5 mg PO DAILY 90 Days Qty: 90 1RF venlafaxine 75 mg capsule,extended release 24hr 75 mg PO BID 30 Days Qty: 60 3RF albuterol sulfate [Ventolin HFA] 90 mcg/actuation HFA aerosol inhaler 2 puff inhalation Q6H PRN (Reason: shortness of breath or wheezing) Qty: 18 6RF docusate sodium [DSS] 250 mg capsule 250 mg PO DAILY PRN (Reason: constipation) 90 Days Qty: 90 1RF levothyroxine 200 mcg capsule 200 mcg PO DAILY 90 Days Qty: 90 1RF Rx Instructions: take with a 50 mg cap for 250 mcg dose atorvastatin 20 mg tablet 20 mg PO DAILY 30 Days Qty: 30 3RF carvedilol 12.5 mg tablet 12.5 mg PO BID 30 Days Qty: 60 3RF Rx Instructions: must administer with a meal/food cholecalciferol (vitamin D3) 50 mcg (2,000 unit) capsule 50 mcg PO DAILY 90 Days Qty: 90 1RF hydrochlorothiazide 25 mg tablet 25 mg PO QAM 30 Days Qty: 30 3RF lisinopril 10 mg tablet 10 mg PO DAILY 30 Days Qty: 30 3RF gabapentin 800 mg tablet 800 mg PO .COMPLEX Rx Instructions: 800 mg orally AM, THEN 1 tablet at noon, then 2 tablets at HS.; tramadol 50 mg tablet 50 mg PO TID PRN (Reason: pain) 30 Days Qty: 90 0RF tiotropium bromide [Spiriva with HandiHaler] 18 mcg capsule, w/inhalation device 1 cap inhalation DAILY Qty: 30 3RF Rx Instructions: puncture 1 cap using device; one dose = 2 inhalations fluticasone propion-salmeterol [Advair Diskus] 250-50 mcg/dose blister with d evice 1 inh inhalation Q12H Qty: 60 3RF pantoprazole 40 mg tablet,delayed release (DR/EC) 40 mg PO QAM Anoro Ellipta 62.5-25 mcg/actuation blister with device 1 ea INHALATION DAILY levothyroxine 50 mcg capsule 50 mcg PO DAILY 30 Days Qty: 30 0RF Rx Instructions: take with 200 mcg for dose of 250 mcg Held meloxicam 15 mg tablet 15 mg PO DAILY 30 Days Qty: 30 3RF Hold Instructions: see pcp Discontinued clonidine HCl 0.1 mg tablet 0.1 mg PO TID Qty: 90 0RF Rx Instructions: Take 1 tab if systolic blood pressure greater than 180 or diastolic blood pressure greater than 100 Discharge Orders: Discharge Order (Routine); Ordered 04/22/24 Ordered By: Ayah Madsen Other Ambulatory Orders: DME: Walker (Order) Location: None Selected Ordered By: Ayah Madsen Referrals: Lloyd Sunshine MD [Physician] - 2 weeks (We have notified your physician's clinic of the need for a follow-up appointment to be scheduled. If you have not heard from them within the next 2 business days, please call them directly. ) Ann Abrams MD [Physician] - 1 month (Appointment will be scheduled at your appointment with Marlen Bryant. ) Marlen Bryant FNP [Nurse Practitioner] - 05/04/24 8:30 am Vickey Macias D.O. [Referring] - 05/12/24 8:00 am Discharge Diet: Cardiac Discharge Activity: Resume usual activity, Use walker/crutches as instructed and As per PT/OT instructions Patient Instructions: Aspirin (By mouth), Levetiracetam (By mouth), Opioid Safety Activity Restrictions/Additional Instructions: Please refrain from driving. Discharge Attestations Time Spent in Discharge Care*: greater than 30 min Quality Metrics Clinical Quality Measures [ No reported AMI, CVA or VTE this stay] Coding Level of Care Code 57453 Total time (in minutes) for Discharge: 35 Diagnoses Elevated troponin R79.89 Primary hypertension I10 Hypertension type: primary hypertension Mixed hyperlipidemia E78.2 Status epilepticus G40.901
--- NOTE | 2024-04-22 09:39 | PC.NURSE ---
Attempt to make an appointment with patient to see Dr. Sunshine in two weeks. There is no availability at this time, [facility] stated that the clinic would call patient with appointment.
[2024-04-22 10:52] LABS: Glucose Point of Care 123 mg/dL (70-110)
--- NOTE | 2024-04-22 15:16 | PC.NURSE ---
Discharge Note Patient discharged to home via private vehicle accompanied by . Discharge instructions reviewed with patient and/or off premise service representative. Mobile pharmacy medications and/or prescriptions provided. Belongings/home medications returned.
--- NOTE | 2024-04-22 15:19 | PC.NURSE ---
Went over medication changes with the patient and wrote it in big letters on discharge paperwork. Will go over it again when the gets here at 5pm.
--- NOTE | 2024-04-22 16:31 | P.PN_ITS ---
Subjective 2 Subjective: Patient is remaining chest pain-free. No new complaints. Medications: Medication Review Details: Current Medications Acetaminophen (Acetaminophen 500 Mg Tablet) 500 mg PO Q4H PRN PRN Reason: fever Last Admin: 04/21/24 22:06 Dose: 500 mg Albuterol/Ipratropium (Ipratropium-Albuterol 3 Ml Neb) 3 ml INHALATION Q6H.[facility]P [facility] Last Admin: 04/22/24 13:56 Dose: Not Given Aspirin (Aspirin 81 Mg Ec Tablet) 81 mg PO DAILY [facility] Last Admin: 04/22/24 08:48 Dose: 81 mg Atorvastatin Calcium (Atorvastatin 40 Mg Tablet) 20 mg PO DAILY [facility] Last Admin: 04/22/24 08:48 Dose: 20 mg Budesonide (Budesonide 0.5 Mg/2 Ml Neb) 0.5 mg INHALATION BID.[facility]PIRATORY [facility] Last Admin: 04/22/24 08:48 Dose: 0.5 mg Carvedilol (Carvedilol 12.5 Mg Tablet) 12.5 mg PO BID [facility] Last Admin: 04/22/24 08:48 Dose: 12.5 mg Furosemide (Furosemide 10 Mg/Ml Sdv 4ml) 40 mg IVP Q12H [facility] Last Admin: 04/22/24 05:56 Dose: 40 mg Lanolin (Lanolin Oint 7 Gm) 1 applic TOPICAL PRN PRN PRN Reason: DRYNESS Levetiracetam (Levetiracetam 500 Mg Tablet) 500 mg PO BID [facility] Last Admin: 04/22/24 08:48 Dose: 500 mg Levothyroxine Sodium (Levothyroxine 100 Mcg Tablet) 100 mcg PO QAM [facility] Last Admin: 04/22/24 05:56 Dose: 100 mcg Levothyroxine Sodium (Levothyroxine 125 Mcg Tablet) 125 mcg PO QAM [facility] Last Admin: 04/22/24 05:56 Dose: 125 mcg Ondansetron HCl (Ondansetron 2 Mg/Ml Sdv 2 Ml) 4 mg IVP Q6H PRN PRN Reason: NAUSEA AND VOMITING Ondansetron HCl (Ondansetron 2 Mg/Ml Sdv 2 Ml) 4 mg IVP Q2M PRN PRN Reason: NAUSEA Pantoprazole Sodium (Pantoprazole 40 Mg Sdv) 40 mg IVP BID [facility] Last Admin: 04/22/24 08:49 Dose: 40 mg Potassium Chloride (Potassium Chloride Er 20 Meq Tablet) 40 meq PO DAILY [facility] Last Admin: 04/22/24 08:47 Dose: 40 meq Ropinirole HCl (Ropinirole 2 Mg Tablet) 5 mg PO BEDTIME [facility] Last Admin: 04/21/24 20:13 Dose: 5 mg Thiamine HCl (Thiamine 100 Mg/Ml 2ml Sdv) 100 mg IVP Q12H [facility] Last Admin: 04/22/24 14:12 Dose: 100 mg Venlafaxine HCl (Venlafaxine Er (24hr) 75 Mg Capsule) 75 mg PO BID [facility] Last Admin: 04/22/24 08:48 Dose: 75 mg Vitals/I&O/Wt Last Vital Signs Temp 98.4 F 04/22/24 15:19 Pulse 60 04/22/24 15:19 Resp 17 04/22/24 15:19 BP 132/89 04/22/24 15:19 Pulse Ox 90 04/22/24 15:19 O2 Del Method Room Air 04/22/24 15:19 O2 Flow Rate 2 04/20/24 21:34 FiO2 35 04/19/24 10:16 04/22/24 04/22/24 04/22/24 06:59 14:59 22:59 Intake Total 120 / 1080 340 / 340 Output Total 800 / 1950 800 / 800 Balance -680 / -870 -460 / -460 Weight last 48 hrs Weight 164 lb 3 oz Weight 156 lb 8.451 oz Physical Exam 2 Narrative: GENERAL: The patient is alert and oriented times three. Not in any acute distress. HEENT: No significant pallor, icterus or lymphadenopathy.Oral cavity: There are no mucous membrane lesions. NECK: Trachea appears to be central. No masses noted. No JVD or thyromegaly appreciated. RESPIRATORY: Chest is symmetrical. No intercostals muscle retraction or any accessory muscle activation. There is no chest wall tenderness. Breath sounds are heard bilaterally. No rales or rhonchi heard. No evidence of any consolidation. BREASTS: Deferred. HEART: The heart sounds are normal. No S3 or S4. No significant murmurs. No pericardial rub ABDOMEN: No vessel pulsations or distention. No tenderness. No organomegaly appreciated. Bowel sounds are normally heard. : Deferred. RECTAL: Deferred. LYMPHATIC: No lymphadenopathy noted in the neck. EXTREMITIES: No edema or cyanosis. No clubbing. MUSCULOSKELETAL: No acute joint deformities or swelling SKIN: There are no significant rashes or ecchymosis NEUROPSYCHIATRIC: The patient is alert and oriented x3. Appears to be in a good mood. No tremors or rigidity noted. Urinary Catheter Management: Silva: Cath Placed During This Visit: yes, but has since been removed by the nurse Reason for Continuing Indwelling Catheter: Decision to DC Catheter Urinary Catheter Date of Insertion: 04/18/24 Date Urinary Catheter Removed: 04/22/24 Time Urinary Catheter Discontinued: 15:16 Data 04/21/24 05:02 04/22/24 02:53 Other Labs: Laboratory Last Values WBC 8.85 10^3/uL (3.29-11.43) 04/21/24 05:02 RBC 4.11 10^6/uL (3.85-5.65) 04/21/24 05:02 Hgb 12.50 g/dL (11.27-16.99) 04/21/24 05:02 Hct 39.8 % (36-47) 04/21/24 05:02 MCV 96.8 fl (85-98) 04/21/24 05:02 MCH 30.4 pg (27-33) 04/21/24 05:02 MCHC 31.4 g/dL (30-55) 04/21/24 05:02 RDW 13.6 % (12.1-15.1) 04/21/24 05:02 Plt Count 310 10^3/cmm (157-399) 04/21/24 05:02 MPV 10.0 fL (7.4-10.4) 04/21/24 05:02 Neut % (Auto) 77.0 % 04/21/24 05:02 Lymph % (Auto) 9.0 % 04/21/24 05:02 [place] % (Auto) 9.3 % 04/21/24 05:02 Eos % (Auto) 3.3 % 04/21/24 05:02 Baso % (Auto) 1.1 % 04/21/24 05:02 Neut # (Auto) 6.81 10^3/uL (1.8-7.7) 04/21/24 05:02 Lymph # (Auto) 0.8 10^3/uL (0.8-4.8) 04/21/24 05:02 [place] # (Auto) 0.8 10^3/uL (0.2-0.9) 04/21/24 05:02 Eos # (Auto) 0.3 10^3/uL (0.0-0.8) 04/21/24 05:02 Baso # (Auto) 0.1 10^3/uL (0.0-0.1) 04/21/24 05:02 Nucleated RBC % (auto) 0 % 04/21/24 05:02 Nucleated RBCs # 0.0 /100WBC 04/21/24 05:02 PT 14.00 SECONDS (12.1-14.9) 04/18/24 00:00 INR 1.01 (0.8-1.2) 04/18/24 00:00 Specimen Type Arterial 04/18/24 05:00 Sample Site Radial, right 04/18/24 05:00 ABG pH 7.34 (7.35-7.45) L 04/18/24 05:00 ABG pCO2 48.9 mmHg (35-45) H 04/18/24 05:00 ABG pO2 157.0 mmHg (80.0-100.0) H 04/18/24 05:00 ABG PO2/FiO2 Ratio 224 04/18/24 05:00 ABG HCO3 26.3 mmol/L (22-26) H 04/18/24 05:00 ABG O2 Saturation > 99.1 04/18/24 05:00 ABG Base Excess -0.3 mmol/L (-2.0-2.0) 04/18/24 05:00 John Test Pos 04/18/24 05:00 A-a O2 Gradient 35.9 mmHg (5-10) H 04/18/24 05:00 Hematocrit 49.5 % (37-47) H 04/18/24 05:00 Hgb O2 Saturation 97.3 % (95-100) 04/18/24 05:00 Carboxyhemoglobin 0.7 %THgb (0.4-20.1) 04/18/24 05:00 Methemoglobin 1.3 % (0.4-1.5) 04/18/24 05:00 Total Hemoglobin 16.1 g/dL (12-16) H 04/18/24 05:00 Sodium 140.0 mmol/L (131-143) 04/18/24 05:00 Potassium 3.7 mmol/L (3.5-5.0) 04/18/24 05:00 Glucose 117.0 mg/dL (70-115) H 04/18/24 05:00 Ionized Calcium 1.1 mmol/L (1.1-1.4) 04/18/24 05:00 O2 Delivery Device Vent 04/18/24 05:00 FiO2 70.0 % 04/18/24 05:00 Tidal Volume 0.35 04/18/24 05:00 PEEP 5.0 cmH20 04/18/24 05:00 Tile Edger ID Jdb 04/18/24 05:00 Sodium 136 mmol/L (136-145) 04/22/24 02:53 Potassium 3.7 mmol/L (3.5-5.1) 04/22/24 02:53 Chloride 92 mmol/L (98-107) L 04/22/24 02:53 Carbon Dioxide 29 mmol/L (22-29) 04/22/24 02:53 Anion Gap 18.7 (5-19) 04/22/24 02:53 BUN 26 mg/dL (8-23) H 04/22/24 02:53 Creatinine 1.0 mg/dL (0.5-0.9) H 04/22/24 02:53 GFR Calculation 56.2 mL/min (90-130) L 04/22/24 02:53 Glucose 100 mg/dL (65-115) 04/22/24 02:53 POC Glucose 123 mg/dL (70-110) H 04/22/24 10:47 Calculated Osmolality 287 mOsm/kg (285-295) 04/22/24 02:53 Lactic Acid 20.9 mmol/L (0.5-2.2) H* 04/18/24 00:00 Lactic Acid (Sepsis) 1.2 mmol/L (0.5-2.2) 04/18/24 10:13 Calcium 9.7 mg/dL (8.5-10.5) 04/22/24 02:53 Phosphorus 4.2 mg/dL (2.5-4.5) 04/18/24 10:13 Magnesium 1.9 mg/dL (1.7-2.3) 04/22/24 02:53 Total Bilirubin 0.8 mg/dL (0.15-1.2) 04/20/24 04:17 AST 26 U/L (0-32) 04/20/24 04:17 ALT 28 U/L (0-33) 04/20/24 04:17 Alkaline Phosphatase 81 U/L (35-105) 04/20/24 04:17 Creatine Kinase 151 U/L (26-192) 04/18/24 00:00 Troponin T Baseline 22 ng/L (0-10) H 04/18/24 00:00 Troponin T 120 Minute 70.23 ng/L (0-10) H 04/18/24 01:59 Delta Troponin T 48.23 ABS# (0-10) H* 04/18/24 01:59 Troponin T Hi Sens 6Hr 53.89 ng/L (0-10) H 04/18/24 10:13 Troponin T Hi Sens 6Hr Delta 31.89 ng/L (0-12) H* 04/18/24 10:13 C-Reactive Protein 10.5 mg/L (0.0-4.9) H 04/18/24 10:13 NT-Pro-B Natriuret Pep Cancelled 04/20/24 12:45 Total Protein 6.7 g/dL (6.6-8.7) 04/20/24 04:17 Albumin 3.6 g/dL (3.5-5.2) 04/20/24 04:17 Globulin 3.1 g/dL (1.3-4.6) 04/20/24 04:17 Vitamin B12 393 pg/mL (232-1245) 04/18/24 00:00 Procalcitonin 0.07 ng/mL (0-0.5) 04/18/24 00:00 TSH 14.11 uIU/mL (0.27-4.20) H 04/18/24 10:13 Free T4 0.74 ng/dL (0.82-1.77) L 04/19/24 03:57 Free T3 1.0 PG/ML (2.0-4.4) L 04/19/24 03:57 Prolactin 85.75 ng/mL (4.8-23.3) H 04/18/24 00:00 Urine Color Yellow (Yellow) 04/18/24 02:04 Urine Appearance Cloudy (CLEAR) A 04/18/24 02:04 Urine pH 5.5 (5-7) 04/18/24 02:04 Ur Specific [place] 1.022 (1.005-1.030) 04/18/24 02:04 Urine Protein 4+ (Negative) A 04/18/24 02:04 Urine Glucose (UA) Trace (Normal) H 04/18/24 02:04 Urine Ketones Negative (Negative) 04/18/24 02:04 Urine Blood 2+ (Negative) A 04/18/24 02:04 Urine Nitrate Negative (Negative) 04/18/24 02:04 Urine Bilirubin Negative (Negative) 04/18/24 02:04 Urine Urobilinogen 1.0 mg/dL (Negative) 04/18/24 02:04 Ur Leukocyte Esterase Negative (Negative) 04/18/24 02:04 Urine RBC 3-5 /hpf (0-2) 04/18/24 02:04 Urine WBC 0-5 /hpf (0-5) 04/18/24 02:04 Ur Squamous Epith Cells 6-10 /hpf (0-5) 04/18/24 02:04 Amorphous Sediment Not Reportable 04/18/24 02:04 Urine Bacteria 1+ /hpf (NONE) H 04/18/24 02:04 Hyaline Casts 71.16 /lpf 04/18/24 02:04 Salicylates < 0.3 mg/dL (3-10) L 04/18/24 00:00 Urine Opiates Screen Negative ng/mL (Negative) 04/18/24 02:04 Acetaminophen < 5.0 ug/mL (10-30) L 04/18/24 00:00 Ur Barbiturates Screen Negative ng/mL (Negative) 04/18/24 02:04 Levetiracetam 22.6 mcg/mL (6.0-46.0) 04/19/24 10:09 Ur Phencyclidine Scrn Negative ng/mL (Negative) 04/18/24 02:04 Ur Amphetamines Screen Positive ng/mL (Negative) H 04/18/24 02:04 U Benzodiazepines Scrn Negative ng/mL (Negative) 04/18/24 02:04 Urine Cocaine Screen Negative ng/mL (Negative) 04/18/24 02:04 U Marijuana (THC) Screen Positive ng/mL (Negative) H 04/18/24 02:04 Ethyl Alcohol < 10 mg/dL (0-10) 04/18/24 00:00 Coronavirus (PCR) Negative (Negative) 04/18/24 00:09 Influenza A (PCR) Negative (Negative) 04/18/24 00:09 Influenza Type B (PCR) Negative (Negative) 04/18/24 00:09 RSV (PCR) Negative (Negative) 04/18/24 00:09 A&P Assessment and plan (1) Elevated troponin: Troponin elevation could be due to demand ischemia from seizures . In view of the abnormal EKG and multiple risk factors possibility of underlying coronary ischemia causing this also is a consideration. Patient apparently had similar EKG changes in the past. She also had a cardiac arrest in 2017 which was essentially unremarkable. The current stress test results were discussed with the patient. The area of ischemia appears to be small. The echocardiogram revealed normal LV size and ejection fraction with no significant wall motion abnormalities noted to further evaluate the coronary status, she requires a cardiac catheterization. However in the absence of any chest pain and also because of the small area of ischemia, it was thought to be appropriate to continue medical treatment at this point. So a shared decision was made not to undergo any invasive procedures at this point. Patient and the family understands this well. The implications were discussed in detail. The patient has no change of mind. So we will continue on the current management (2) HTN (hypertension): For better control of the blood pressure, I may add lisinopril 10 mg p.o. daily in addition to current medications. Her blood pressure needs to be closely monitored. Qualifiers: Hypertension type: primary hypertension Qualified Code(s): I10 - Essential (primary) hypertension (3) Mixed hyperlipidemia: Continue atorvastatin 20 mg daily. Will have follow-up evaluation with the primary care provider. (4) Status epilepticus: Patient has not had any recurrence of seizure activity since hospital admission. Evaluation and management as per the primary/neurology service Plan Lisinopril 10 mg p.o. daily continue other medications as it is. The patient is being discharged home today. Will make an appointment to be seen in the office in 1 to 2 weeks. Patient will clinical progress, further recommendations will be made. PDMP PDMP Reviewed: Not Reviewed Attestations 2 Medical Necessity Statement*: Disposition as per the primary Coding Level of Care Code 71208 Diagnoses Elevated troponin R79.89 Primary hypertension I10 Hypertension type: primary hypertension Mixed hyperlipidemia E78.2 Status epilepticus G40.901
== END 2024-04-22 18:35 | disposition home or self-care (01) | DRG 100 ==
LOC: ER 04-18 01:35 → ICU 04-18 02:07 → MEDSURG 04-21 22:01
PROVIDERS: Psychiatry & Neurology Neurology; Student in an Organized Health Care Education/Training Program; Admitting Provider Internal Medicine; Emergency Provider Emergency Medicine; PCP Family Medicine; Visit Provider Internal Medicine
DX: G40.901 Epilepsy, unspecified, not intractable, with status epilepticus (principal); I21.A1 Myocardial infarction type 2; J96.02 Acute respiratory failure with hypercapnia; J96.01 Acute respiratory failure with hypoxia; J69.0 Pneumonitis due to inhalation of food and vomit; I50.30 Unspecified diastolic (congestive) heart failure; E87.4 Mixed disorder of acid-base balance; I11.0 Hypertensive heart disease with heart failure; E78.2 Mixed hyperlipidemia; J44.9 Chronic obstructive pulmonary disease, unspecified; F41.9 Anxiety disorder, unspecified; G43.809 Other migraine, not intractable, without status migrainosus; M79.7 Fibromyalgia; F17.210 Nicotine dependence, cigarettes, uncomplicated; G47.419 Narcolepsy without cataplexy; D64.9 Anemia, unspecified; E03.9 Hypothyroidism, unspecified; G62.9 Polyneuropathy, unspecified; G25.81 Restless legs syndrome; E55.9 Vitamin D deficiency, unspecified
CPT/HCPCS: 36415; 36416; 36592; 36600; 51702; 70450; 71045; 71250; 74176; 78452; 80048; 80051; 80053; 80177; 80306; 80307; 81001; 82330; 82550; 82607; 82805; 82962; 83605; 83735; 83880; 84100; 84145; 84146; 84439; 84443; 84481; 84484; 85025; 85610; 86140; 87040; 87637; 92507; 92523; 92526; 92610; 93005; 93017; 93306; 94002; 94003; 94640; 94799; 96365; 96366; 96367; 96372; 96374; 96375; 96376; 97116; 97161; 97167; 97530; 97535; 99291; A9500; J1200; J1650; J1940; J1953; J2060; J2250; J2470; J2543; J2704; J2785; J3010; J3411; J7030; J7070; J7626

== ENCOUNTER 2024-04-24 21:31 | Emergency (ER) | payer MEDICAID, SELFPAY ==
[2024-04-24] VITALS (7 sets, daily range): BP systolic 84–115; BP diastolic 41–60; PULSE 51–55; RESP 15–22; TEMP 36.8; O2SAT 90–96; BMI 39.0
--- NOTE | 2024-04-24 21:37 | XRR_ITS ---
PROCEDURE INFORMATION: Exam: XR Chest Exam date and time: 04/24/2024 9:53 PM Age: 63 years old Clinical indication: Other: Syncope; EMS arrival for syncopal episode. TECHNIQUE: Imaging protocol: Radiologic exam of the chest. Views: 1 view. COMPARISON: CR XR chest 1V portable [id number] 04/20/2024 12:00 PM FINDINGS: Lungs: No pulmonary consolidation. Pleural spaces: No pleural effusion or pneumothorax. Heart/Mediastinum: The cardiomediastinal silhouette is within normal limits. Bones/joints: No acute osseous abnormalities are seen. XR/XR chest 1V portable [id number] IMPRESSION: No acute cardiopulmonary disease.
--- NOTE | 2024-04-24 21:37 | CTR_ITS ---
PROCEDURE INFORMATION: Exam: CT Head Without Contrast Exam date and time: 04/24/2024 10:09 PM Age: 63 years old Clinical indication: Pain; Syncope and collapse; Headache; EMS arrival for syncopal episode. C/O WANG. TECHNIQUE: Imaging protocol: Computed tomography of the head without contrast. Radiation optimization: All CT scans at this facility use at least one of these dose optimization techniques: automated exposure control; mA and/or kV adjustment per patient size (includes targeted exams where dose is matched to clinical indication); or iterative reconstruction. COMPARISON: CT head wo con* [id number] 04/17/2024 11:28 PM RADIATION DOSE METRICS: Total DLP (mGy-cm): 1004.64 FINDINGS: Brain: There is mild cerebral atrophy. There are mild deep white matter microangiopathic ischemic changes. No acute hemorrhage is identified. No mass or mass effect is identified. Cerebral ventricles: The ventricles are prominent secondary to atrophy. Paranasal sinuses: The paranasal sinuses are clear. Mastoid air cells: The mastoid air cells are clear. Bones: Old right lamina papyracea fracture. No acute osseous abnormalities are seen. Soft tissues: The soft tissues are within normal limits. CT/CT head wo con* [id number] IMPRESSION: No acute intracranial pathology.
[2024-04-24] MEDS: sodium chloride 0.9% 1,000 ML 999 ML IV ×2 (21:49→23:59)
[2024-04-24 22:09] LABS: Basophils # 0.1 10^3/uL (0.0-0.1); Basophils % 1.1 %; Eosinophils # 0.3 10^3/uL (0.0-0.8); Eosinophils % 2.6 %; Hematocrit 45.2 % (36-47); Lymphocytes # 0.8 10^3/uL (0.8-4.8); Lymphocytes % 6.2 %; Mean Corpuscular HGB Conc 31.2 g/dL (30-55); Mean Corpuscular Hemoglobin 30.8 pg (27-33); Mean Corpuscular Volume 98.7 fl (85-98); Mean Platelet Volume 9.6 fL (7.4-10.4); Monocytes # 1.4 10^3/uL (0.2-0.9); Monocytes % 10.6 %; Neutrophils # 10.36 10^3/uL (1.8-7.7); Neutrophils % 78.3 %; Nucleated Red Blood Cells % 0 %; Platelet Count 401 10^3/cmm (157-399); Red Blood Count 4.58 10^6/uL (3.85-5.65); Red Cell Distribution Width 13.7 % (12.1-15.1); White Blood Count 13.22 10^3/uL (3.29-11.43)
[2024-04-24 22:35] LABS: Lactic Sepsis W/Reflex 1.6 mmol/L (0.5-2.2); Troponin(5th) Baseline 32 ng/L (0-10)
[2024-04-24 22:36] LABS: Alanine Aminotransferase 18 U/L (0-33); Albumin Level 4.5 g/dL (3.5-5.2); Alkaline Phosphatase 112 U/L (35-105); Anion Gap 20.6 (5-19); Aspartate Amino Transferase 19 U/L (0-32); Blood Urea Nitrogen 38 mg/dL (8-23); Calcium 10.1 mg/dL (8.5-10.5); Carbon Dioxide 28 mmol/L (22-29); Chloride 92 mmol/L (98-107); Creatinine Clr Calc Pharmacy 26.6151; Globulin 3.4 g/dL (1.3-4.6); Glomerular Filtration Rate 22.6 mL/min (90-130); Glucose 124 mg/dL (65-115); Osmolality Calculated 292 mOsm/kg (285-295); Potassium 4.6 mmol/L (3.5-5.1); Sodium 136 mmol/L (136-145); Total Bilirubin 0.6 mg/dL (0.15-1.2); Total Protein 7.9 g/dL (6.6-8.7)
[2024-04-24] MEDS: acetaminophen 325 mg Tablet 650 MG PO (22:50)
--- NOTE | 2024-04-24 22:54 | ED_ITS ---
HPI - Syncope 2 General: Chief Complaint: Syncope Stated Complaint: syncope Time Seen by Provider: 04/24/24 21:31 History of Present Illness: This patient is a 63-year-old white female who was just discharged from the hospital here 2 days ago. She had new onset seizures. She was placed on Keppra. She states she is just has not been feeling well since she got home. Her blood pressure has been running low. She has had a headache. No fever. She has had some near syncope episodes at home states her blood pressure has been as low as 70s systolic. She also developed some diarrhea this morning. Related Data Home Medications ?Medication ?Instructions ?Recorded ?Confirmed dextroamphetamine sulfate 10 mg 20 mg PO TID 04/12/23 04/18/24 tablet (Zenzedi) gabapentin 800 mg tablet 800 mg PO .COMPLEX 10/31/23 04/18/24 pantoprazole 40 mg tablet,delayed 40 mg PO QAM 5 04/18/24 release umeclidinium 62.5 mcg-vilanterol 1 ea inhalation DAILY 04/18/24 04/18/24 25 mcg/actuation powdr for inhalation (Anoro Ellipta) Previous Rx's ?Medication ?Instructions ?Recorded Ventolin HFA 90 mcg/actuation 2 puff inhalation Q6H TN N 08/28/23 aerosol inhaler (albuterol sulfate) shortness of breat h or wheezing #18 grams docusate sodium 250 mg capsule 250 mg PO DAILY PRN con stipation 08/28/23 (DSS) 90 days #90 caps levocetirizine 5 mg tablet (Xyzal) 5 mg PO .QHS #90 ta bs 08/28/23 levothyroxine 200 mcg capsule 200 mcg PO DAILY 90 days #90 caps 08/28/23 ropinirole 5 mg tablet 5 mg PO DAILY 90 days #90 ta bs 08/28/23 venlafaxine 75 mg capsule,extended 75 mg PO BID 30 day s #60 caps 08/28/23 release 24 hr atorvastatin 20 mg tablet 20 mg PO DAILY 30 days #30 t abs 09/30/23 carvedilol 12.5 mg tablet 12.5 mg PO BID 30 days #60 t abs 09/30/23 cholecalciferol (vitamin D3) 50 50 mcg PO DAILY 90 day s #90 caps 09/30/23 mcg (2,000 unit) capsule hydrochlorothiazide 25 mg tablet 25 mg PO QAM 30 days #30 tabs 09/30/23 lisinopril 10 mg tablet 10 mg PO DAILY 30 days #30 t abs 09/30/23 meloxicam 15 mg tablet 15 mg PO DAILY 30 days #30 t abs 09/30/23 Held on 04/22/24. Instructions: see pcp fluticasone 250 mcg-salmeterol 50 1 inh inhalation Q12 H #60 ea 10/30/23 mcg/dose blistr powdr for inhalation (Advair Diskus) tiotropium bromide 18 mcg capsule 1 cap inhalation AYESHA LY #30 10/30/23 with inhalation device (Spiriva inhalations with HandiHaler) tramadol 50 mg tablet 50 mg PO TID PRN pain 30 day s #90 10/31/23 tabs aspirin 81 mg tablet,delayed 81 mg PO DAILY #30 tabs 0 04/22/24 release levetiracetam 500 mg tablet 500 mg PO BID #60 tabs 03/04 levothyroxine 50 mcg capsule 50 mcg PO DAILY 30 days # 30 caps 04/22/24 Allergies Allergy/AdvReac Type Severity Reaction Status Date / Time egg Allergy Severe ADR-Muscle Verified 01/21/24 11:39 Pain cefuroxime (From Zinacef) Allergy ALGY-Redness Verified 10/31/23 14:14 of Skin ciprofloxacin Allergy ALGY-Redness Verified 10/31/23 14:14 of Skin povidone-iodine (From Allergy ALGY-Rash Verified 10/31/23 14:14 Betadine) soap (From Betadine) Allergy ALGY-Rash Verified 10/31/23 14:14 Review of Systems 2 General: Reports: 10 or more systems reviewed and unremarkable except in HPI and below Const: Reports: fatigue and malaise Card: Reports: pre-syncope GI: Reports: diarrhea PFS ED 2 PFSH: Medical History (Updated 04/25/24 @ 03:56 by Arian Fregoso MD) Chronic migraine without aura, intractable, with status migrainosus PRES (posterior reversible encephalopathy syndrome) Narcolepsy and cataplexy Anxiety and depression Surgical History H/O tubal ligation Family History Father Cancer Stroke Mother Clotting disorder Lung disease Grandfather Diabetes Grandmother Diabetes Son Suicide Denies family history of CAD (coronary artery disease) Dementia Hyperlipidemia Psychiatric illness Chronic kidney disease (CKD) Anesthesia complication Bleeding disorder Family history of premature coronary artery disease Hypertension Social History Smoking and tobacco/nicotine status: never used tobacco/nicotine Alcohol intake: never Substance/Drug Use: never Physical Exam 2 Const: COMMON NORMALS: no acute distress, patient oriented x3 and no limitations GENERAL APPEARANCE: cooperative and comfortable HENMT: COMMON NORMALS: normocephalic, atraumatic, Normal nasal mucous membranes and turbinates present, moist oral mucous membranes and oropharynx normal HEAD & SCALP: normal to inspection, normocephalic and atraumatic F RIOS & SINUS: normal facial exam NOSE: Normal nasal mucous membranes and turbinates present Eye: COMMON NORMALS: Equal, round and reactive pupils present, EOMs intact bilaterally and conjunctivae normal GENERAL EYE: appearance normal, both eyes and all related structures CONJUNCTIVA: Yes conjunctivae normal PUPIL: Yes Equal, round and reactive pupils present Neck/C-Spine: COMMON NORMALS: supple and no JVD Chest: COMMONS NORMALS: normal inspection of the chest Resp: COMMON NORMALS: normal respiratory effort and clear to auscultation bilaterally AUSCULTATION: clear to auscultation bilaterally Cardio: COMMON NORMALS: no JVD, regular rate, regular rhythm, No gallops present (Cardio), No murmurs present (Cardio) and No rub (Cardio) RATE: r egular rate RHYTHM: regular rhythm GI: COMMON NORMALS: Normal to inspection, nondistended, normoactive bowel sounds present, Soft to palpation and non-tender AUSCULTATION: Yes normoactive bowel sounds PALPATION: Yes Soft to palpation : COMMON NORMALS: Yes no CVA tenderness BLADDER/KIDNEY EXAM: Yes no CVA tenderness Back/Pelvis: COMMON NORMALS: no CVA tenderness and thoracic and lumbar spine normal to inspection Extremity: COMMON NORMALS: normal to inspection Neuro: COMMON NORMALS: patient oriented x3 and CN's II-XII intact bilaterally Psych: COMMON NORMALS: mental status grossly normal, Normal thought process present and cooperative THOUGHT PROCESS: Normal thought process present Skin: COMMON NORMALS: no rashes or lesions noted, turgor normal and no jaundice GENERAL SKIN EXAM: no rashes or lesions noted and turgor normal Course 2 Vital Signs: Vital signs: Vital Signs Temperature 98.3 F 04/24/24 21:36 Pulse Rate 58 L 04/25/24 04:16 Respiratory Rate 16 04/25/24 04:16 Blood Pressure 107/60 04/25/24 04:16 Pulse Oximetry 99 04/25/24 04:16 MDM - Syncope Medical Decision Making Her blood pressure upon arrival was 84/43 with a heart rate of 53. She is afebrile. Her EKG revealed sinus bradycardia with no ST segment abnormalities. Head CT was read by the radiologist as normal. Chest x-ray was normal. CBC revealed a white count of 13.2. CMP revealed a BUN of 38 and a creatinine of 2.2. Creatinine is up about 1.4 on her admission. Troponin was 32. Urine analysis revealed white blood cells without any bacteria. Urine drug screen was positive for THC and amphetamines. Patient was given 2 L of normal saline. Blood pressure came up nicely to 107/60. Patient was initially given Tylenol for her headache and then subsequently 1 hydrocodone tablet. I did review labs and notes regarding her recent hospital stay. She was diuresed while she was in the hospital. She also developed some diarrhea today. I think this combination is causing the elevated creatinine and her hypotension. Symptoms resolved with fluid bolus. She likely has a viral infection currently. Recommended she push fluids and get some rest. Follow-up with her primary care provider for recheck next week. She was discharged with her family in stable condition. Lab Data 04/24/24 22:00 04/24/24 22:00 Radiology Impressions Chest X-Ray 04/24/24 21:37 IMPRESSION: No acute cardiopulmonary disease. Head CT 04/24/24 21:37 IMPRESSION: No acute intracranial pathology. Laboratory Results WBC 13.22 10^3/uL (3.29-11.43) H 04/24/24 22:00 RBC 4.58 10^6/uL (3.85-5.65) 04/24/24 22:00 Hgb 14.10 g/dL (11.27-16.99) 04/24/24 22:00 Hct 45.2 % (36-47) 04/24/24 22:00 MCV 98.7 fl (85-98) H 04/24/24 22:00 MCH 30.8 pg (27-33) 04/24/24 22:00 MCHC 31.2 g/dL (30-55) 04/24/24 22:00 RDW 13.7 % (12.1-15.1) 04/24/24 22:00 Plt Count 401 10^3/cmm (157-399) H 04/24/24 22:00 MPV 9.6 fL (7.4-10.4) 04/24/24 22:00 Neut % (Auto) 78.3 % 04/24/24 22:00 Lymph % (Auto) 6.2 % 04/24/24 22:00 [place] % (Auto) 10.6 % 04/24/24 22:00 Eos % (Auto) 2.6 % 04/24/24 22:00 Baso % (Auto) 1.1 % 04/24/24 22:00 Neut # (Auto) 10.36 10^3/uL (1.8-7.7) H 04/24/24 22:00 Lymph # (Auto) 0.8 10^3/uL (0.8-4.8) 04/24/24 22:00 [place] # (Auto) 1.4 10^3/uL (0.2-0.9) H 04/24/24 22:00 Eos # (Auto) 0.3 10^3/uL (0.0-0.8) 04/24/24 22:00 Baso # (Auto) 0.1 10^3/uL (0.0-0.1) 04/24/24 22:00 Nucleated RBC % (auto) 0 % 04/24/24 22:00 Nucleated RBCs # 0.0 /100WBC 04/24/24 22:00 Sodium 136 mmol/L (136-145) 04/24/24 22:00 Potassium 4.6 mmol/L (3.5-5.1) 04/24/24 22:00 Chloride 92 mmol/L (98-107) L 04/24/24 22:00 Carbon Dioxide 28 mmol/L (22-29) 04/24/24 22:00 Anion Gap 20.6 (5-19) H 04/24/24 22:00 BUN 38 mg/dL (8-23) H 04/24/24 22:00 Creatinine 2.2 mg/dL (0.5-0.9) H 04/24/24 22:00 GFR Calculation 22.6 mL/min (90-130) L 04/24/24 22:00 Glucose 124 mg/dL (65-115) H 04/24/24 22:00 Calculated Osmolality 292 mOsm/kg (285-295) 04/24/24 22:00 Lactic Acid 1.6 mmol/L (0.5-2.2) 04/24/24 22:00 Calcium 10.1 mg/dL (8.5-10.5) 04/24/24 22:00 Total Bilirubin 0.6 mg/dL (0.15-1.2) 04/24/24 22:00 AST 19 U/L (0-32) 04/24/24 22:00 ALT 18 U/L (0-33) 04/24/24 22:00 Alkaline Phosphatase 112 U/L (35-105) H 04/24/24 22:00 Troponin T Baseline 32 ng/L (0-10) H 04/24/24 22:00 Troponin T 120 Minute 25.73 ng/L (0-10) H 04/25/24 00:10 Delta Troponin T -6.27 ABS# (0-10) L 04/25/24 00:10 Total Protein 7.9 g/dL (6.6-8.7) 04/24/24 22:00 Albumin 4.5 g/dL (3.5-5.2) 04/24/24 22:00 Globulin 3.4 g/dL (1.3-4.6) 04/24/24 22:00 Urine Color Yellow (Yellow) 04/25/24 02:00 Urine Appearance Turbid (CLEAR) A 04/25/24 02:00 Urine pH 6.0 (5-7) 04/25/24 02:00 Ur Specific [place] 1.019 (1.005-1.030) 04/25/24 02:00 Urine Protein 2+ (Negative) A 04/25/24 02:00 Urine Glucose (UA) Negative (Normal) 04/25/24 02:00 Urine Ketones Trace (Negative) 04/25/24 02:00 Urine Blood 1+ (Negative) A 04/25/24 02:00 Urine Nitrate Negative (Negative) 04/25/24 02:00 Urine Bilirubin Negative (Negative) 04/25/24 02:00 Urine Urobilinogen 1.0 mg/dL (Negative) 04/25/24 02:00 Ur Leukocyte Esterase 2+ (Negative) A 04/25/24 02:00 Urine RBC 3-5 /hpf (0-2) 04/25/24 02:00 Urine WBC >100 /hpf (0-5) H 04/25/24 02:00 Ur Squamous Epith Cells 0-5 /hpf (0-5) 04/25/24 02:00 Amorphous Sediment Not Reportable 04/25/24 02:00 Urine Bacteria None seen /hpf (NONE) 04/25/24 02:00 Hyaline Casts 45.50 /lpf 04/25/24 02:00 Urine Opiates Screen Negative ng/mL (Negative) 04/25/24 02:00 Ur Barbiturates Screen Negative ng/mL (Negative) 04/25/24 02:00 Ur Phencyclidine Scrn Negative ng/mL (Negative) 04/25/24 02:00 Ur Amphetamines Screen Positive ng/mL (Negative) H 04/25/24 02:00 U Benzodiazepines Scrn Negative ng/mL (Negative) 04/25/24 02:00 Urine Cocaine Screen Negative ng/mL (Negative) 04/25/24 02:00 U Marijuana (THC) Screen Positive ng/mL (Negative) H 04/25/24 02:00 All radiology interpretation(s) finalized by discharge Discharge Plan Discharge Patient Disposition: Home Clinical Impression: Dehydration, Gastroenteritis Condition: Stable Prescriptions: No Action dextroamphetamine sulfate [Zenzedi] 10 mg tablet 20 mg PO TID levocetirizine [Xyzal] 5 mg tablet 5 mg PO .QHS Qty: 90 1RF ropinirole 5 mg tablet 5 mg PO DAILY 90 Days Qty: 90 1RF venlafaxine 75 mg capsule,extended release 24hr 75 mg PO BID 30 Days Qty: 60 3RF albuterol sulfate [Ventolin HFA] 90 mcg/actuation HFA aerosol inhaler 2 puff inhalation Q6H PRN (Reason: shortness of breath or wheezing) Qty: 18 6RF docusate sodium [DSS] 250 mg capsule 250 mg PO DAILY PRN (Reason: constipation) 90 Days Qty: 90 1RF levothyroxine 200 mcg capsule 200 mcg PO DAILY 90 Days Qty: 90 1RF Rx Instructions: take with a 50 mg cap for 250 mcg dose atorvastatin 20 mg tablet 20 mg PO DAILY 30 Days Qty: 30 3RF carvedilol 12.5 mg tablet 12.5 mg PO BID 30 Days Qty: 60 3RF Rx Instructions: must administer with a meal/food cholecalciferol (vitamin D3) 50 mcg (2,000 unit) capsule 50 mcg PO DAILY 90 Days Qty: 90 1RF hydrochlorothiazide 25 mg tablet 25 mg PO QAM 30 Days Qty: 30 3RF lisinopril 10 mg tablet 10 mg PO DAILY 30 Days Qty: 30 3RF meloxicam 15 mg tablet 15 mg PO DAILY 30 Days Qty: 30 3RF gabapentin 800 mg tablet 800 mg PO .COMPLEX Rx Instructions: 800 mg orally AM, THEN 1 tablet at noon, then 2 tablets at HS.; tramadol 50 mg tablet 50 mg PO TID PRN (Reason: pain) 30 Days Qty: 90 0RF tiotropium bromide [Spiriva with HandiHaler] 18 mcg capsule, w/inhalation device 1 cap inhalation DAILY Qty: 30 3RF Rx Instructions: puncture 1 cap using device; one dose = 2 inhalations fluticasone propion-salmeterol [Advair Diskus] 250-50 mcg/dose blister with device 1 inh inhalation Q12H Qty: 60 3RF pantoprazole 40 mg tablet,delayed release (DR/EC) 40 mg PO QAM Anoro Ellipta 62.5-25 mcg/actuation blister with device 1 ea INHALATION DAILY levetiracetam 500 mg Tablet 500 mg PO BID Qty: 60 0RF aspirin 81 mg Tablet,Delayed Release (Dr/Ec) 81 mg PO DAILY Qty: 30 0RF levothyroxine 50 mcg capsule 50 mcg PO DAILY 30 Days Qty: 30 0RF Rx Instructions: take with 200 mcg for dose of 250 mcg Discharge Orders: Discharge ED (Routine); Ordered 04/25/24 Ordered By: Arian Fregoso Referrals: Diogenes Rees MD [Primary Care Provider] - Patient Instructions: Gastroenteritis (ED) Print Language: Setswana Coding Level of Care Code ED Braided Band Assembler for Chg Fwd
--- NOTE | 2024-04-24 23:39 | ECG_ITS ---
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1960 Requested By: Arian Fregoso Order Number: [id number] Reading MD: KARAN TERRY Measurements Intervals [place] Rate: 53 P: 71 SC: 166 QRS: -74 QRSD: 113 T: 61 QT: 420 QTc: 396 Interpretive Statements SINUS BRADYCARDIA LEFT AXIS DEVIATION [QRS AXIS < -30] PATTERN CONSISTENT WITH PULMONARY DISEASE RIGHT BUNDLE BRANCH BLOCK [120+ ms QRS DURATION, UPRIGHT V1, 40+ ms S IN I/aVL/V4/V5/V6] MODERATE VOLTAGE CRITERIA FOR LVH, CONSIDER NORMAL VARIANT [MEETS CRITERIA IN ONE OF: R(aVL), S(V1), R(V5), R(V5/V6)+S(V1)] POSSIBLE SEPTAL MYOCARDIAL INFARCTION , OF INDETERMINATE AGE [30 ms Q WAVE IN V1/V2] Electronically Signed On 04-25-2024 19:33:06 TECHNICAL WRITER by KARAN TERRY [email or web address]
[2024-04-25] VITALS (16 sets, daily range): BP systolic 97–130; BP diastolic 47–77; PULSE 49–64; RESP 13–20; O2SAT 91–100
[2024-04-25 00:40] LABS: Troponin 5 2HR 25.73 ng/L (0-10)
[2024-04-25 00:41] LABS: Troponin 5 2HR Delta -6.27 ABS# (0-10)
[2024-04-25 02:23] LABS: Bilirubin Urine Negative (Negative); Blood Urine 1+ (Negative); Glucose Urine UA Negative (Normal); Ketones Urine Trace (Negative); Leukocyte Esterase Urine 2+ (Negative); Nitrate Urine Negative (Negative); Protein Urine 2+ (Negative); Specific Gravity, Urine 1.019 (1.005-1.030); Urine Appearance Turbid (CLEAR); Urine Color Yellow (Yellow)
[2024-04-25 02:28] LABS: Add Urine Microscopic? YES; Bacteria Urine None Seen /hpf; Squamous Epithelial Cell Urine 0-5 /hpf (0-5); WBC Urine >100 /hpf (0-5)
[2024-04-25 02:30] LABS: Amphetamines Screen Urine Positive (Negative); Barbiturates Screen Urine Negative (Negative); Benzodiazepines Screen Urine Negative (Negative); Cocaine Screen Urine Negative (Negative); Opiate Screen Urine Negative (Negative); PCP Screen Urine Negative (Negative); THC Screen Urine Positive (Negative)
[2024-04-25 02:55] LABS: Add Urine Culture? Yes; UA Slide Review UA Slide Review Perf
[2024-04-25] MEDS: HYDROcodone-acetaminophen 5-325 mg Tablet 1 TAB PO (04:03)
== END 2024-04-25 04:34 | disposition home or self-care (01) ==
PROVIDERS: Emergency Provider Emergency Medicine; PCP Family Medicine
DX: E86.0 Dehydration (principal); K52.9 Noninfective gastroenteritis and colitis, unspecified; Z79.82 Long term (current) use of aspirin
CPT/HCPCS: 36415; 51701; 70450; 71045; 80053; 80306; 81001; 83605; 84484; 85025; 87086; 93005; 99285; J7030